=== PATIENT | male | born 1990 | race Caucasian/White ===

== ENCOUNTER 2020-12-16 08:57 | Emergency (ER) | payer OTHER, SELFPAY ==
[2020-12-16 08:58] VITALS: BP 147/105; PULSE 96; RESP 24; TEMP 36.6; O2SAT 99; BMI 32.1
--- NOTE | 2020-12-16 09:13 | EKG12_ITS ---
Test Reason : CP Blood Pressure : / mmHG Vent. Rate : 097 BPM Atrial Rate : 097 BPM P-R Int : 142 ms QRS Dur : 086 ms QT Int : 330 ms P-R-T Axes : 066 083 059 degrees QTc Int : 419 ms Normal sinus rhythm Normal ECG Confirmed by LUX MARTINEZ, DAVIS ([id number]), news videotape editor MAGDIEL MARTINEZ ([id number]) on 12/20/2020 10:09:11 AM Referred By: CHRISTOPHER Confirmed By:DAVIS WASSERMAN MD
--- NOTE | 2020-12-16 09:14 | ED.VIS.CHEST ---
HPI History of Present Illness Chief Complaint: Palpitations Detail of Chief Complaint: Patient presents with chest discomfort and tachycardia that started last ev Informant: patient Onset/Context/Timing Onset: Today Activity at onset: sudden Location: Left Chest Current Severity: Gone Worsened By: Breathing Associated Symptoms: Positive for Dyspnea, Lightheadedness and Palpitations Narrative Patient states that he woke up in the middle of the night 2 times with racing heart. Patient did not actually take his pulse to see how fast his heart was racing. Patient states that in the morning he woke up and took his medications and smoked a cigarette when he developed sharp stabbing pains in his left chest and also felt like his heart was racing. Patient states that he went to work and during his first break he smoked another cigarette and developed more pain in his left chest and felt like he was going to pass out. Patient states he felt lightheaded and sweaty and short of breath. Patient states that currently feels jittery and numb and tingly. He does have history of anxiety but is not on anxiety medication. Patient does not feel like he has been under more stress than usual. Patient denies recent travel or surgery. He has no other significant medical history. Prior Similar Symptoms: No Recent Illness/Hospitalization: No CVD Risk Factors: Negative for Hypertension, Diabetes and Hypercholesterolemia PE Risk Factors: Negative for Recent Travel/Surgery and Recent Immobilization TAD Risk Factors: Negative for Marfan's Syndrome, Hypertension and Family History PFSH PFSH Home Medications lorazepam [Ativan] 1 mg PO TID PRN #10 tab 12/16/20 [Rx Last Taken Unknown] Allergy/AdvReac Type Severity Reaction Status Date / Time Penicillins Allergy Rash Verified 12/16/20 09:01 Social History Smoking Status: Current every day smoker ROS ROS ED Review of Systems ROS Unobtainable: other Constitutional Constitutional ED: Reports lethargy; Denies chills, fever(s), sweats or weight loss Eyes Eyes: Denies blurry vision, change in vision or diplopia ENT ENT ED: Denies rhinorrhea or sore throat Cardiovascular Cardiovascular: Reports chest pain and racing heartbeat; Denies orthopnea Respiratory/Chest Respiratory/Chest: Reports dyspnea and dyspnea on exertion; Denies cough, orthopnea or sputum Gastrointestinal Gastrointestinal: Denies abdominal pain, diarrhea, nausea or vomiting Genitourinary Genitourinary ED: Denies dysuria, hematuria or urinary frequency Musculoskeletal Musculoskeletal: Denies arthralgias, back pain, myalgias or neck pain Integumentary Denies abscess, Abrasions or rash Neurologic Neurologic: Denies headache(s) or weakness Psychiatric Psychiatric: Denies anxiety, depression or suicidal thoughts Endocrine Endocrinology: Denies polydipsia, polyphagia or polyuria Hematologic/Lymphatic Hematologic/Lymphatic: Denies easy bleeding, easy bruising or lymphadenopathy Allergic/Immunologic Allergic/Immunologic ED: Denies mouth swelling, tongue swelling or urticaria EXAM Physical Exam Const Vital Signs: 12/16/20 08:58 12/16/20 09:35 12/16/20 09:36 Temperature 97.8 F Temperature Source Temporal Pulse Rate 96 Respiratory Rate 24 H Respiratory Effort Short of Breath Blood Pressure 147/105 H Blood Pressure Mean 119 Pulse Ox 99 99 Oxygen Delivery Method Room Air Room Air Positive well nourished and well developed General Appearance ED: well developed and NAD HEENT Reports TM's clear and moist mucous membranes normocephalic and atraumatic; Negative for trauma or tenderness Tympanic Membrane ED: Yes TM's clear Eyes PERRL and EOMs intact bilaterally General Eye ED: Negative for pale conjunctiva or scleral icterus Neck no lymphadenopathy, supple and no JVD General: Negative for tenderness Chest Wall inspection of chest normal and palpation of chest normal Chest: Negative for tenderness Resp normal respiratory effort and clear to auscultation bilaterally Effort and Inspection: Negative for respiratory distress or pain with movement Auscultation: Negative for rhonchi, wheezes or diminished lung sounds Cardio regular rate, regular rhythm, S1 normal heart sound, S2 normal heart sound and no murmurs Peripheral Pulses: pulses 2+ throughout GI normal to inspection, nondistended, normoactive bowel sounds, soft to palpation, non-tender, non-distended and no masses Back/Spine no CVA tenderness and no thoracic nor lumbar tenderness Extremity normal to inspection General Extremety ED: Negative for edema General Extremity: Negative for edema Neuro oriented x3, CN's II-XII intact bilaterally, no sensory deficits noted and gait normal Sensorium / Orientation: awake, alert, oriented to person, oriented to place and oriented to time Motor Exam: strength 5/5 throughout and strength abnormal Psych mental status grossly normal Skin no rashes or lesions noted and no wounds Heart Score History: Slightly/Non-Suspicious ECG: Normal Age: </= 45 years Risk Factors: No Risk Factors Troponin: </= Normal Limit Score: 0 MDM MDM MDM Narrative Medical decision making narrative: Patient has normal coronary artery risk factors. Patient has been monitored in the department and has had not had any significant tachycardia or abnormal rhythms. Patient not having any chest pain or other symptoms at this time. I suspect there may be a component of anxiety. Lab Data Labs: Laboratory Results - last 24 hr 12/16/20 12/16/20 12/16/20 09:35 09:35 09:35 WBC 6.1 RBC 4.93 Hgb 16.0 Hct 45.5 MCV 92.3 MCH 32.5 H MCHC 35.2 RDW Std Deviation 38.2 RDW Coeff of Neha 11.3 L Plt Count 207 MPV 10.6 Immature Gran % (Auto) 0.700 Neut % (Auto) 55.6 Lymph % (Auto) 27.0 Millard % (Auto) 12.6 H Eos % (Auto) 3.4 Baso % (Auto) 0.7 Absolute Neuts (auto) 3.4 Absolute Lymphs (auto) 1.65 Nucleated RBC % 0 D-Dimer Quant (PE/DVT) <= 0.27 Sodium 138 Potassium 4.1 Chloride 110 H Carbon Dioxide 22.0 Anion Gap 6 BUN 15 Creatinine 0.78 Estim Creat Clear Calc 183.53 Est GFR (MDRD) Af Amer 150 Est GFR (MDRD) Non-Af 124 BUN/Creatinine Ratio 19.3 Glucose 89 Calcium 8.9 Troponin I < 0.015 Radiography Chest X-Ray - ED: 1 View, Read by ED Physician, Read by Radiologist and Normal Diagnostic Testing: Radiology Impression Chest X-Ray 12/16/20 09:47 IMPRESSION: Normal x-ray examination of the chest. Electronically Signed: Rk Wilkins MD at 10:15 EDT , Service support , EKG Initial EKG: Interpretation: Sinus Rhythm and No Acute Injury Pattern Discharge Plan Triage Chief Complaint: Palpitations ED Provider: Xochitl Snyder Dx/Rx/DC Orders Instructions: ED Chest Pain, Uncertain Cause, ED Palpitations Prescriptions: New lorazepam [Ativan] 1 mg tablet 1 mg PO TID PRN (Reason: anxiety) Qty: 10 RF: 0 Primary Care Provider: Care Physician,No Primary Referrals: Silvino Villavicencio MD [STAFF PHYSICIAN] - 3-5 Days Care Physician,No Primary [Primary Care Provider] - Disposition Disposition: Home, self care
[2020-12-16 09:35] VITALS: O2SAT 99
[2020-12-16 09:41] LABS: Absolute Lymphocyte Count 1.65 X10^3/uL (0.83-4.51); Absolute Neutrophil Count 3.4 X10^3/uL (2.0-7.7); Basophil# 0.04 X10^3/uL; Basophil% 0.7 % (0-1); Eosinophil# 0.21 X10^3/uL; Eosinophils% 3.4 % (0-5); Hematocrit 45.5 % (40-54); Lymphocyte # 1.65 X10^3/ul (0.83-4.51); Mean Corp Hgb Conc 35.2 g/dL (32-36); Mean Corpuscular Hgb 32.5 pg (27.0-32.0); Mean Corpuscular Volume 92.3 fL (80-94); Mean Platelet Vol. 10.6 fl (6.2-12.0); Monocyte# 0.77 X10^3/uL; Monocyte% 12.6 % (0-10); NRBC Flagged by Analyzer 0 % (0-5); Neutrophil # 3.39 X10^3/uL (2.7-7.7); Neutrophil % 55.6 % (47-70); Platelet Count 207 K/mm3 (150-450); RBC Distribution Width CV 11.3 % (11.6-14.6); RBC Distribution Width SD 38.2 fl (35.1-43.9); Red Blood Count 4.93 M/mm3 (4.6-6.2); White Blood Count 6.1 K/mm3 (4.4-11.0)
[2020-12-16] MEDS: Aspirin 81 MG TAB.CHEW 324 MG PO (09:46)
[2020-12-16] MEDS: 0.9% Normal Saline 1,000 ML 150 ML IV (09:46)
--- NOTE | 2020-12-16 09:47 | RAD_ITS ---
STUDY: X-RAY CHEST REASON FOR EXAM: Male, 30 years old. Chest pain TECHNIQUE: Single AP portable view of the chest. COMPARISON: None. FINDINGS: EKG electrodes are seen. The lungs are clear and expanded. There is no demonstrated pleural abnormality. Normal size heart. Normal mediastinum and vanessa. Normal visualized pulmonary arteries. Normal visualized aortic arch and descending thoracic aorta. Normal visualized thoracic spine. Normal visualized ribs, clavicles, and shoulders. There is no demonstrated abnormality of the visualized soft tissue structures of the upper abdomen. RAD/Chest 1 View (Portable) IMPRESSION: Normal x-ray examination of the chest. Electronically Signed: Rk Wilkins MD at 10:15 EDT , Service support ,
[2020-12-16 09:57] LABS: D-Dimer Quantitative (DVT/PE) <= 0.27 FEU/ug/m (0.27-0.49)
[2020-12-16 09:58] LABS: Anion Gap 6 (5-15); BUN 15 mg/dL (7-18); BUN/Creat Ratio 19.3 RATIO (10-20); Calcium,Total 8.9 mg/dL (8.5-10.1); Chloride 110 mmol/L (98-107); Creatinine, Serum 0.78 mg/dL (0.70-1.30); EST Glomerular Filtration Rate 124 mL/min (>60); Est Glom Filt Rate - Afr Amer 150 mL/min (>60); Estimated Creatinine Clearance 183.53 ml/min; Glucose 89 mg/dL (74-106); Potassium 4.1 mmol/L (3.5-5.1); Sodium Level 138 mmol/L (136-145)
== END 2020-12-16 11:46 | disposition home or self-care (01) ==
PROVIDERS: Emergency Provider Emergency Medicine
DX: R00.2 Palpitations (principal); R07.89 Other chest pain; R00.0 Tachycardia, unspecified; R42 Dizziness and giddiness; R06.02 Shortness of breath; R06.00 Dyspnea, unspecified; F17.210 Nicotine dependence, cigarettes, uncomplicated; Z79.899 Other long term (current) drug therapy
CPT/HCPCS: 71045; 80048; 84484; 85025; 85379; 93005; 96360; 96361; 99285; J7030

== ENCOUNTER → 2021-06-24 16:52 | Outpatient (CLI) | payer OTHER, SELFPAY ==
[2021-06-24 16:55] LABS: Bacteria 0 SEEN /hpf (None Seen); Mucous, Urine 0 SEEN /hpf (<or=2+); Red Blood Cells-Urine 0 SEEN /hpf (0-5); White Blood Cells 0 SEEN /hpf (0-5)
--- NOTE | 2021-06-24 17:06 | RAD_ITS ---
STUDY: X-RAY CHEST REASON FOR EXAM: Male, 31 years old. SHORTNESS OF BREATH TECHNIQUE: 2 PA and 2 lateral views of the chest. COMPARISON: 12/16/2020 FINDINGS: The lungs are clear and expanded. There is no demonstrated pleural abnormality. Normal size heart. Normal mediastinum and vanessa. Normal visualized pulmonary arteries. Normal visualized aortic arch and descending thoracic aorta. Normal visualized thoracic spine. Normal visualized ribs, clavicles, and shoulders. There is no demonstrated abnormality of the visualized soft tissue structures of the upper abdomen. RAD/Chest PA and Lateral IMPRESSION: Normal x-ray examination of the chest. Electronically Signed: Franklin Liang MD at 17:25 EDT , Service support ,
[2021-06-24 17:40] LABS: Absolute Lymphocyte Count 1.88 X10^3/uL (0.83-4.51); Absolute Neutrophil Count 3.9 X10^3/uL (2.0-7.7); Basophil# 0.04 X10^3/uL; Basophil% 0.6 % (0-1); Eosinophil# 0.32 X10^3/uL; Eosinophils% 4.5 % (0-5); Hematocrit 44.7 % (40-54); Hemoglobin 15.2 g/dL (13.0-16.5); Lymphocyte # 1.88 X10^3/ul (0.83-4.51); Lymphocyte % 26.4 % (19-41); Mean Corpuscular Volume 94.1 fL (80-94); Mean Platelet Vol. 10.8 fl (6.2-12.0); Monocyte# 0.92 X10^3/uL; Monocyte% 12.9 % (0-10); NRBC Flagged by Analyzer 0 % (0-5); Neutrophil # 3.93 X10^3/uL (2.7-7.7); Neutrophil % 55.2 % (47-70); Platelet Count 217 K/mm3 (150-450); RBC Distribution Width CV 11.5 % (11.6-14.6); RBC Distribution Width SD 39.8 fl (35.1-43.9); Red Blood Count 4.75 M/mm3 (4.6-6.2); White Blood Count 7.1 K/mm3 (4.4-11.0)
[2021-06-24 17:50] LABS: Color, Urine Yellow (Yellow); Glucose, Dipstick Normal (Normal); Ketone-Dipstick Negative (Negative); Leukocyte Esterase-Dipstick Negative /ul (Negative); Nitrite-Dipstick Negative (Negative); Occult Blood-Urine Negative /ul (Negative); Protein-Dipstick Negative (Negative); Urine Bilirubin Dipstick Negative (Negative); Urine Clarity Clear (Clear); Urine Urobilinogen Normal (Normal)
[2021-06-24 18:40] LABS: Thyroid Stim Hormone (TSH) 0.62 uIU/mL (0.358-3.74)
[2021-06-24 18:57] LABS: Squamous Epithelial Cells - UA 0-5 SEEN /hpf (0-5)
== END ==
PROVIDERS: PCP Family Medicine; Referring Provider Family Medicine; Visit Provider Family Medicine
DX: R06.02 Shortness of breath (principal); F41.9 Anxiety disorder, unspecified; F17.200 Nicotine dependence, unspecified, uncomplicated
CPT/HCPCS: 36415; 71046; 81001; 84443; 85025

== ENCOUNTER → 2022-09-21 | Outpatient (CLI) | payer OTHER, SELFPAY ==
--- NOTE | 2022-09-21 14:59 | VDLE_ITS ---
Reason For Study: Swelling RIGHT LEFT CFV is compressible, spontaneous, phasic, GSV is normal. competent and demonstrates normal CFV is compressible, spontaneous, phasic, augmentation. competent, and demonstrates normal Procedure augmentation. This is a venous duplex using B-mode, color FV is compressible, spontaneous, phasic, flow and spectral Doppler. competent and demonstrates normal Exam performed in department. augmentation. A preliminary report was called and/or faxed POP V is compressible, spontaneous, phasic, to Yvette GARRETT. Office will call patient. competent and demonstrates normal augmentation. LT PerV is compressible. Acute deep veint thrombosis is noted in the left T/P Trunk distal, PTV, and SoleusV. VL/Venous Duplex US, Unilateral Interpretation Summary Acute deep venous thrombosis left tibioperoneal trunk, posterior tibial and vito eus veins. Patent and compressible left great saphenous vein Normal flow patterns right common femoral vein Ordering Physician: Raheem Nguyen Referring Physician: Raheem Nguyen Performed By: Maggie Jama RVT
== END | disposition home or self-care (01) ==
LOC: CVS 14:58
PROVIDERS: PCP Family Medicine; Referring Provider Family Medicine; Visit Provider Family Medicine
DX: M79.89 Other specified soft tissue disorders (principal)
CPT/HCPCS: 93971

== ENCOUNTER → 2022-09-21 | Outpatient (CLI) | payer OTHER, SELFPAY ==
[2022-09-21 17:50] LABS: Absolute Lymphocyte Count 1.85 X10^3/uL (0.83-4.51); Absolute Neutrophil Count 4.3 X10^3/uL (2.0-7.7); Basophil# 0.04 X10^3/uL; Basophil% 0.5 % (0-1); Eosinophil# 0.19 X10^3/uL; Eosinophils% 2.6 % (0-5); Lymphocyte # 1.85 X10^3/ul (0.83-4.51); Lymphocyte % 25.2 % (19-41); Mean Corp Hgb Conc 34.1 g/dL (32-36); Mean Corpuscular Hgb 32.9 pg (27.0-32.0); Mean Corpuscular Volume 96.5 fL (80-94); Mean Platelet Vol. 10.7 fl (6.2-12.0); Monocyte# 0.95 X10^3/uL; Monocyte% 12.9 % (0-10); NRBC Flagged by Analyzer 0 % (0-5); Neutrophil # 4.29 X10^3/uL (2.7-7.7); Neutrophil % 58.4 % (47-70); Platelet Count 211 K/mm3 (150-450); RBC Distribution Width CV 11.8 % (11.6-14.6); RBC Distribution Width SD 41.5 fl (35.1-43.9); Red Blood Count 4.56 M/mm3 (4.6-6.2); White Blood Count 7.4 K/mm3 (4.4-11.0)
[2022-09-21 18:21] LABS: ALB/GLOB Ratio 0.9 RATIO (0.9-2.4); AST(SGOT) 18 U/L (15-37); Alanine Aminotransfer ALT/SGPT 39 U/L (16-61); Albumin, Serum 3.9 g/dL (3.2-5.0); Alkaline Phosphatase 80 U/L (45-117); Anion Gap 9 (5-15); BUN 12 mg/dL (7-18); Calcium,Total 9.2 mg/dL (8.5-10.1); Chloride 105 mmol/L (98-107); EST Glomerular Filtration Rate 119 mL/min (>60); Est Glom Filt Rate - Afr Amer 144 mL/min (>60); Globulin 4.2 g/dL (2.2-4.2); Glucose 71 mg/dL (74-106); Potassium 3.6 mmol/L (3.5-5.1); Protein, Total 8.1 g/dL (6.4-8.2); Sodium Level 140 mmol/L (136-145)
== END | disposition home or self-care (01) ==
LOC: MFPLAB 14:30
PROVIDERS: PCP Family Medicine; Referring Provider Family Medicine; Visit Provider Family Medicine
DX: K21.9 Gastro-esophageal reflux disease without esophagitis (principal)
CPT/HCPCS: 36415; 80053; 85025

== ENCOUNTER → 2022-09-28 | Outpatient (CLI) | payer OTHER, SELFPAY | END | disposition home or self-care (01) | LOC: MTLAB 17:03 | PROVIDERS: PCP Family Medicine; Referring Provider Family Medicine; Visit Provider Family Medicine | DX: I82.409 Acute embolism and thrombosis of unspecified deep veins of unspecified lower extremity (principal) | CPT/HCPCS: 36415; 81240; 81241; 83090; 85300; 85303; 85307; 85420; 85613; 85705; 85732 ==

== ENCOUNTER → 2022-11-13 | Outpatient (CLI) | payer OTHER, SELFPAY ==
--- NOTE | 2022-11-13 12:49 | VDLE_ITS ---
Reason For Study: Pain RIGHT LEFT CFV is compressible, spontaneous, phasic, GSV is normal. competent and demonstrates normal CFV is compressible, spontaneous, phasic, augmentation. competent, and demonstrates normal Procedure augmentation. This is a venous duplex using B-mode, color FV is compressible, spontaneous, phasic, flow and spectral Doppler. competent and demonstrates normal Exam performed in department. augmentation. A preliminary report was called and/or faxed POP V is compressible, spontaneous, phasic, to Christine OPTOMECHANICAL ENGINEER. competent and demonstrates normal augmentation. Distal T/P Trunk is compressible. PTV and SoleusV are noncompressible and nondilated. Compared to 09/21/22. VL/Venous Duplex US, Unilateral Interpretation Summary Acute deep vein thrombosis is noted in the left posterior tibial vein, soleus v ein. Some degree of thrombus resolution since prior imaging Ordering Physician: Marely Cheng Referring Physician: Raheem Nguyen Performed By: Maggie Jama RVT
== END | disposition home or self-care (01) ==
LOC: CVS 12:48
PROVIDERS: PCP Family Medicine; Visit Provider Physician Assistant
DX: I82.409 Acute embolism and thrombosis of unspecified deep veins of unspecified lower extremity (principal)
CPT/HCPCS: 93971

== ENCOUNTER 2022-12-14 06:56 | Day surgery (SDC) | payer OTHER, SELFPAY ==
[2022-12-11 16:00] LABS: Hematocrit 46.9 % (40-54); Hemoglobin 15.9 g/dL (13.0-16.5); Mean Corp Hgb Conc 33.9 g/dL (32-36); Mean Corpuscular Hgb 31.8 pg (27.0-32.0); Mean Corpuscular Volume 93.8 fL (80-94); Mean Platelet Vol. 10.6 fl (6.2-12.0); Platelet Count 222 K/mm3 (150-450); RBC Distribution Width CV 11.7 % (11.6-14.6); RBC Distribution Width SD 40.3 fl (35.1-43.9); White Blood Count 7.6 K/mm3 (4.4-11.0)
[2022-12-11 16:30] LABS: Anion Gap 6 (5-15); BUN 20 mg/dL (7-18); BUN/Creat Ratio 23.3 RATIO (10-20); Calcium,Total 9.1 mg/dL (8.5-10.1); Chloride 104 mmol/L (98-107); Creatinine, Serum 0.86 mg/dL (0.70-1.30); EST Glomerular Filtration Rate 110 mL/min (>60); Est Glom Filt Rate - Afr Amer 133 mL/min (>60); Glucose 93 mg/dL (74-106); Potassium 3.9 mmol/L (3.5-5.1); Sodium Level 135 mmol/L (136-145)
[2022-12-13 08:09] VITALS: BMI 30.3
--- NOTE | 2022-12-14 10:05 | PCM.OPRPT ---
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 He has no significant family history of any thrombotic events and no personal history of prior VTE. He presents now for venogram to assess the central venous system for possible compression as a etiology for his unprovoked DVT. Description of procedure: Upon obtaining form consent and verification correct patient procedure site patient taken to the [facility] where he was positioned prepped and draped in usual sterile fashion. Timeout was then performed and conscious sedation administered with Versed and fentanyl. Skin overlying the left common femoral vein was anesthetized 1% lidocaine and the vessel accessed in retrograde fashion under ultrasound guidance with a micropuncture needle and wire. This then exchanged out for micropuncture sheath through which hand-injection ilio caval venogram was performed which revealed satisfactory positioning with no extravasation or dissection. Also revealed a very wide in the left common iliac vein suspicious for compression. Through the micropuncture sheath Bentson wire was advanced and the micropuncture sheath exchanged for a 9 Armenian sheath. Through the 9 Armenian sheath an intravascular ultrasound probe was advanced into the vena cava and recorded pullback of the IVC, left common iliac vein, left external iliac vein was performed. This revealed approximately 63% compression of the superior aspect of the left common iliac vein as well as the inferior aspect of the IVC. Next skin over the right common femoral vein was anesthetized with 1% lidocaine and the vessel was accessed under ultrasound guidance in a retrograde fashion with micropuncture needle and wire. This was then exchanged out for micropuncture sheath through which hand-injection ilio caval venogram was performed which revealed satisfactory positioning with no extravasation or dissection and normal-appearing iliac vein. Through this a J-wire was advanced and the micropuncture sheath exchanged out for a 9 Armenian sheath. Through the 9 Armenian sheath intravascular ultrasound probe was advanced in the inferior vena cava and recorded pullback of the IVC as well as the right common and external iliac veins was performed. This revealed no abnormality or compression of the right iliac vein system, but further confirmed that there was compression of the inferior vena cava at its confluence. Patient was then heparinized and allowed us her for 3 minutes with heparin redosing based on ACT results. Intravascular ultrasound imaging was then obtained to determine reference vessel diameter and length required. Given the location of the compression of the IVC confluence as well as the superior aspect of the left common iliac vein bilateral iliac vein stenting extending into the vena cava was required. A Medtronic Abre venous stent, 18 x 150 was selected and advanced via the left femoral access sheath in the position extending superior to the maximum extent of the compression. Next a second Medtronic Abre venous stent, 18 x 50 was selected advanced via the right femoral access sheath and positioned aligning with the left femoral access stent. A 2 stents were then deployed simultaneously down into the common iliac veins. Given the extent required to reach our reference vessel on the left a second Abre stent 18 x 80 was then advanced via the left femoral access sheath and deployed with satisfactory overlap of the initial stent. The stents were then postdilated with a 16 x 40 [employer] XXL angioplasty balloon to nominal throughout the entirety of the length of the stented segment. Intravascular sound was then advanced via both the right and left femoral access sheath and recorded pullback performed. The proximal aspect of the left venous stent was approximately 5 mm cephalad to the right sided stent and appeared to be compromising the lumen of the vena cava superior to the right-sided stent. [place] that a second stent in the right was necessary to give better alignment so a Medtronic Abre 18 x 60 was advanced in position via the right femoral access sheath and then deployed the superior aspect of the stents were then dilated with angioplasty balloon and then deflated and withdrawn. Repeat intravascular ultrasound revealed satisfactory stent alignment, appropriate stent expansion and good wall apposition throughout with no residual compression. The left common iliac dilated segment had already decompressed down to around the stent. Completion hand-injection venogram was performed which revealed brisk contrast across the stented segment with no extravasation or dissection. Sheaths and wires were withdrawn and manual pressure held for 5 minutes after which satisfactory hemostasis was noted. Patient was taken recovery room with dissipated discharge home. Grafts/Implants Used: Medtronic Abre: Left 18 x 150, 18 x 80; Right 18 x 150, 18 x 60
[2022-12-14 13:38] LABS: ACT Activated Clotting Time 233 sec (74-137)
== END 2022-12-14 12:00 | disposition home or self-care (01) ==
PROVIDERS: PCP Family Medicine; Referring Provider Surgery Trauma Surgery; Visit Provider Surgery Trauma Surgery
DX: I87.1 Compression of vein (principal); I82.402 Acute embolism and thrombosis of unspecified deep veins of left lower extremity; K21.9 Gastro-esophageal reflux disease without esophagitis; F32.A Depression, unspecified; F41.9 Anxiety disorder, unspecified; Z79.01 Long term (current) use of anticoagulants; Z79.899 Other long term (current) drug therapy
CPT/HCPCS: 36010; 36415; 37238; 37252; 37253; 75825; 76937; 80048; 85027; 85347; 99152; 99153; C1725; C1753; C1769; C1876; J7040; Q9967; C1887

== ENCOUNTER → 2023-01-19 | Outpatient (CLI) | payer OTHER, SELFPAY ==
--- NOTE | 2023-01-19 08:33 | AAVD_ITS ---
Reason For Study: S/P Bilateral vein stents Inferior Vena Cava Proximal inferior vena cava measures 1.54 x 1.47 cm. in the cross-sectional axis. Mid inferior vena cava measures 1.58 x 1.60 cm. in the cross-sectional axis. Distal inferior vena cava measures 1.61 x 1.61 cm. in the cross-sectional axis. Proximal inferior vena cava measures 1.39 cm. in the longitudinal axis. Mid inferior vena cava measures 1.56 cm. in the longitudinal axis. Distal inferior vena cava measures 1.50 cm. in the longitudinal axis. Left Common Iliac Vein Left common iliac vein measures 1.29 x 1.40 cm. in the cross-sectional axis. Left common iliac vein measures 1.32 cm. in the longitudinal axis. The left common iliac vein has spontaneous, phasic flow throughout. Right Common Iliac Vein Right common iliac vein measures 1.27 x 1.40 cm. in the cross-sectional axis. Right common iliac vein measures 1.39 cm. in the longitudinal axis. The right common iliac vein has spontaneous, phasic flow throughout. Procedure Aorta IVC Iliac vasculature or bypass grafts [id number]. The exam was diagnostic. Exam performed in department. VL/Abd Aortic/IVC Duplex scan Interpretation Summary IVC and bilateral iliac vein stents patent with normal flow pattern. Ordering Physician: Silvino Mar Referring Physician: Raheem Nguyen Performed By: Ej Kim, RVT
== END | disposition home or self-care (01) ==
LOC: CVS 08:32
PROVIDERS: PCP Family Medicine; Referring Provider Surgery Trauma Surgery; Visit Provider Surgery Trauma Surgery
DX: I87.1 Compression of vein (principal)
CPT/HCPCS: 93978

== ENCOUNTER → 2023-06-15 | Outpatient (CLI) | payer OTHER, SELFPAY ==
--- NOTE | 2023-06-15 08:34 | AAVD_ITS ---
Reason For Study: HX BLE CIV Stents Inferior Vena Cava Proximal inferior vena cava measures 1.49 x 1.52 cm. in the cross-sectional axis. Proximal inferior vena cava measures 1.50 cm. in the longitudinal axis. Mid inferior vena cava measures 1.63 x 1.65 cm. in the cross-sectional axis. Mid inferior vena cava measures 1.50 cm. in the longitudinal axis. Distal inferior vena cava measures 1.57 x 1.54 cm. in the cross-sectional axis. Distal inferior vena cava measures 1.69 cm. in the longitudinal axis. The inferior vena cava has spontaneous, phasic flow throughout. Stent noted in distal IVC. Left Common Iliac Vein Left common iliac vein measures 1.41 x 1.60 cm. in the cross-sectional axis. Left common iliac vein measures 1.49 cm. in the longitudinal axis. The left common iliac vein has spontaneous, phasic flow throughout. Stent noted. Right Common Iliac Vein Right common iliac vein measures 1.39 x 1.23 cm. in the cross-sectional axis. Right common iliac vein measures 1.50 cm. in the longitudinal axis. The right common iliac vein has spontaneous, phasic flow throughout. Stent noted. Procedure Aorta IVC Iliac vasculature or bypass grafts [id number]. The exam was diagnostic. Exam performed in department. VL/Abd Aortic/IVC Duplex scan Interpretation Summary Patent inferior vena cava and bilateral iliac vein stents with normal venous fl ow pattern Ordering Physician: Marely Whyte Referring Physician: Raheem Nguyen Performed By: Ej Kim, RVT
== END | disposition home or self-care (01) ==
LOC: CVS 08:34
PROVIDERS: PCP Family Medicine; Referring Provider Physician Assistant; Visit Provider Physician Assistant
DX: I87.1 Compression of vein (principal); I82.409 Acute embolism and thrombosis of unspecified deep veins of unspecified lower extremity; Z48.812 Encounter for surgical aftercare following surgery on the circulatory system
CPT/HCPCS: 93978

== ENCOUNTER → 2023-06-21 | Outpatient (CLI) | payer OTHER, SELFPAY ==
--- NOTE | 2023-06-21 11:09 | RAD_ITS ---
STUDY: X-RAY CHEST REASON FOR EXAM: Male, 33 years old. Acute bronchitis TECHNIQUE: PA and lateral views of the chest. COMPARISON: Comparison is made with prior study dated June 24, 2021. FINDINGS: Hyperinflation. Scattered calcified granulomas. There is no demonstrated pleural abnormality. Normal size heart. Normal mediastinum and vanessa. Normal visualized pulmonary arteries. Normal visualized aortic arch and descending thoracic aorta. Normal visualized thoracic spine. Normal visualized ribs, clavicles, and shoulders. There is no demonstrated abnormality of the visualized soft tissue structures of the upper abdomen. RAD/Chest PA and Lateral IMPRESSION: Hyperinflation. Scattered calcified granulomas. Electronically Signed: Rk Wilkins MD at 14:23 EDT ,
== END | disposition home or self-care (01) ==
LOC: MTRAD 11:08
PROVIDERS: PCP Family Medicine; Referring Provider Family Medicine; Visit Provider Family Medicine
DX: J20.9 Acute bronchitis, unspecified (principal)
CPT/HCPCS: 71046

== ENCOUNTER → 2023-07-05 | Outpatient (CLI) | payer OTHER, SELFPAY ==
[2023-07-05 17:44] LABS: Absolute Lymphocyte Count 1.76 X10^3/uL (0.83-4.51); Absolute Neutrophil Count 3.9 X10^3/uL (2.0-7.7); Basophil# 0.05 X10^3/uL; Basophil% 0.7 % (0-1); Eosinophil# 0.25 X10^3/uL; Eosinophils% 3.7 % (0-5); Hemoglobin 14.3 g/dL (13.0-16.5); Lymphocyte # 1.76 X10^3/ul (0.83-4.51); Lymphocyte % 26.2 % (19-41); Mean Corp Hgb Conc 33.3 g/dL (32-36); Mean Corpuscular Hgb 31.8 pg (27.0-32.0); Mean Corpuscular Volume 95.6 fL (80-94); Mean Platelet Vol. 10.8 fl (6.2-12.0); Monocyte# 0.71 X10^3/uL; Monocyte% 10.5 % (0-10); NRBC Flagged by Analyzer 0 % (0-5); Neutrophil # 3.93 X10^3/uL (2.7-7.7); Neutrophil % 58.5 % (47-70); Platelet Count 236 K/mm3 (150-450); RBC Distribution Width CV 11.8 % (11.6-14.6); RBC Distribution Width SD 41.2 fl (35.1-43.9); White Blood Count 6.7 K/mm3 (4.4-11.0)
[2023-07-05 18:27] LABS: AST(SGOT) 16 U/L (15-37); Alanine Aminotransfer ALT/SGPT 40 U/L (16-61); Albumin, Serum 3.7 g/dL (3.2-5.0); Alkaline Phosphatase 70 U/L (45-117); Anion Gap 7 (5-15); BUN 12 mg/dL (7-18); BUN/Creat Ratio 15.8 RATIO (10-20); Calcium,Total 8.5 mg/dL (8.5-10.1); Chloride 106 mmol/L (98-107); Creatinine, Serum 0.76 mg/dL (0.70-1.30); EST Glomerular Filtration Rate 126 mL/min (>60); Est Glom Filt Rate - Afr Amer 152 mL/min (>60); Globulin 3.6 g/dL (2.2-4.2); Glucose 90 mg/dL (74-106); Potassium 3.8 mmol/L (3.5-5.1); Protein, Total 7.3 g/dL (6.4-8.2); Sodium Level 139 mmol/L (136-145)
== END | disposition home or self-care (01) ==
LOC: MTLAB 15:28
PROVIDERS: PCP Family Medicine; Referring Provider Family Medicine; Visit Provider Family Medicine
DX: K21.9 Gastro-esophageal reflux disease without esophagitis (principal); F17.200 Nicotine dependence, unspecified, uncomplicated
CPT/HCPCS: 36415; 80053; 85025; 87086

== ENCOUNTER → 2023-09-04 | Outpatient (CLI) | payer OTHER, SELFPAY ==
--- NOTE | 2023-09-04 09:55 | RAD_ITS ---
STUDY: X-RAY CHEST REASON FOR EXAM: Male, 33 years old. Acute bronchitis TECHNIQUE: PA and lateral views of the chest. COMPARISON: Comparison is made with prior study dated June 21, 2023. FINDINGS: Hyperinflation. Scattered calcified granulomas. No acute abnormality is seen. There is no demonstrated pleural abnormality. Normal size heart. Normal mediastinum and vanessa. Normal visualized pulmonary arteries. Normal visualized aortic arch and descending thoracic aorta. Normal visualized thoracic spine. Normal visualized ribs, clavicles, and shoulders. There is no demonstrated abnormality of the visualized soft tissue structures of the upper abdomen. RAD/Chest PA and Lateral IMPRESSION: Hyperinflation. No acute abnormality is seen. Electronically Signed: Rk Wilkins MD at 13:14 EST ,
--- OUTSIDE RECORDS SUMMARY | 2023-09-04 10:21 | XMS RPT_ITS | CCD ---
Author Name Unknown Address [address] [place] [id number] Organization [facility] Results Test Name Value Interpretation Reference Range Facil ity Progress note 08-01-2021 Note Date & Type Note Facility 08-01-2021 Note HNO ID: [id number] Author: Iza Zuniga APRN.[employer] Service: ? Author Type: Nurse Practitioner Type: Progress Notes Filed: 08/03/2021 1:32 PM Note Text: This note was created using [employer]. Subjective Dharmesh Regan is a 31 year old male. 31 year old male with PMH tobacco usage presents requesting want to make sure I don't have khadar Acute onset this past Sunday States started with feeling crappy +fatigue +sinus pressure +headache +loss of appetite +cough +congestion Denies N/V/D. Denies fever or chills. COVID vaccinated. The history is provided by the patient. No geospatial extractor analysis was used. URI He complains of cough. There is no chest tightness, difficulty breathing, frequent throat clearing, hemoptysis, hoarse voice, shortness of breath, sputum production or wheezing. This is a new problem. The current episode started in the past 7 days. The problem occurs constantly. The problem has been unchanged. The cough is non-productive. Associated symptoms include headaches, malaise/fatigue, myalgias, nasal congestion, rhinorrhea and a sore throat. Pertinent negatives include no appetite change, chest pain, dyspnea on exertion, ear congestion, ear pain, fever, heartburn, orthopnea, PND, postnasal drip, sneezing, sweats, trouble swallowing or weight loss. His symptoms are aggravated by nothing. His symptoms are alleviated by nothing. There are no known risk factors for lung disease. There is no history of asthma, bronchiectasis, bronchitis, COPD, emphysema or pneumonia. PAST MEDICAL HISTORY Diagnosis Date - Anxiety - Back pain - Hyperlipidemia dx at 18yo - Skull fracture (HCC) rock penetrated, had to have cerebral clot removed - Tobacco use disorder PAST SURGICAL HISTORY Procedure Laterality Date - PAST SURGICAL HISTORY OF removal intercranial clot s/p accident ALLERGIES Amoxicillin, Ceclor [Cefaclor], and Penicillins MEDICATIONS sertraline (ZOLOFT) 100 mg tablet Take 100 mg by mouth once daily. omeprazole 20 mg capsule Take 1 capsule by mouth daily before breakfast. 1/2 hr before meal. Ibuprofen 200 mg cap Take 4 capsules by mouth as needed. FAMILY HISTORY Problem Relation Age of Onset - Diabetes Paternal Grandmother - Hypertension Father - Cancer Maternal Grandfather ?colon - Emphysema Father - Emphysema Paternal Grandfather Social History Tobacco Use - Smoking status: Current Every Day Smoker Packs/day: 0.80 Years: 6.00 Pack years: 4.80 Types: Cigarettes - Smokeless tobacco: Never Used - Tobacco comment: started smoking 14yo Substance Use Topics - Alcohol use: Yes Alcohol/week: 90.0 standard drinks Types: 36 Cans of Beer (12oz) per week Comment: beer weekends 12pk - Drug use: No Review of Systems Constitutional: Positive for fatigue and malaise/fatigue. Negative for appetite change, fever and weight loss. HENT: Positive for rhinorrhea and sore throat. Negative for dental problem, drooling, ear discharge, ear pain, hoarse voice, postnasal drip, sneezing and trouble swallowing. Eyes: Negative for photophobia, pain, discharge, redness, itching and visual disturbance. Respiratory: Positive for cough. Negative for apnea, hemoptysis, sputum production, choking, chest tightness, shortness of breath and wheezing. Cardiovascular: Negative for chest pain, dyspnea on exertion, palpitations, leg swelling and PND. Gastrointestinal: Negative for abdominal pain, diarrhea, heartburn, nausea and vomiting. Musculoskeletal: Positive for myalgias. Negative for arthralgias, back pain and gait problem. Skin: Negative for color change, pallor, rash and wound. Allergic/Immunologic: Negative for environmental allergies, food allergies and immunocompromised state. Neurological: Positive for headaches. Negative for dizziness, seizures, facial asymmetry, light-headedness and numbness. Hematological: Negative for adenopathy. Does not bruise/bleed easily. Psychiatric/Behavioral: Negative for agitation and behavioral problems. Objective BP 132/72 Pulse 88 Temp 36.8 ?C (98.2 ?F) Resp 16 Wt 123.8 kg (273 lb) SpO2 96% BMI 31.27 kg/m? Physical Exam Vitals and nursing note reviewed. Constitutional: General: He is not in acute distress. Appearance: Normal appearance. He is not ill-appearing, toxic-appearing or diaphoretic. HENT: Head: Normocephalic and atraumatic. Right Ear: External ear normal. Left Ear: External ear normal. Nose: Nose normal. No congestion or rhinorrhea. Mouth/Throat: Mouth: Mucous membranes are moist. Pharynx: Oropharynx is clear. No oropharyngeal exudate or posterior oropharyngeal erythema. Eyes: General: Right eye: No discharge. Left eye: No discharge. Extraocular Movements: Extraocular movements intact. Conjunctiva/sclera: Conjunctivae normal. Pupils: Pupils are equal, round, and reactive to light. Cardiovascular: Rate and Rhythm: Normal rate and regular (more content not included)... [facility] Summary Purpose Family History No Family History Records Found Advance Directives No Advanced Directives Records Found Additional Source Comments (unrecognized sect ion and content) No Status Records Found INFORMATION SOURCE (unrecogn ized section and content) FOR RECORDS PERTAINING TO PATIENTS WHO ARE OR HAVE BEEN ENROLLED IN A CHEMICAL DEPENDENCY/SUBSTANCEABUSE PROGRAM, SOME INFORMATION MAY BE OMITTED. This clinical summary was aggregated from multiple sources. Caution should be exercised in using it in the provision of clinical care. This summary normalizes information from multiple sources, and as a consequence, information in this document may materially change the coding, format and clinical context of patient data. In addition, data may be omitted in some cases. CLINICAL DECISIONS SHOULD BE BASED ON THE PRIMARY CLINICAL RECORDS. [employer] [facility]. provides no warranty or guarantee of the accuracy or completeness of information in this document.
== END | disposition home or self-care (01) ==
LOC: MTRAD 09:52
PROVIDERS: PCP Family Medicine; Referring Provider Family Medicine; Visit Provider Family Medicine
DX: J20.9 Acute bronchitis, unspecified (principal)
CPT/HCPCS: 71046

== ENCOUNTER → 2023-12-07 | Outpatient (CLI) | payer OTHER, SELFPAY ==
--- NOTE | 2023-12-07 08:33 | AAVD_ITS ---
Reason For Study: S/P bilateral iliac vein stents Inferior Vena Cava Proximal inferior vena cava measures 1.07 x 1.85 cm. in the cross-sectional axis. Proximal inferior vena cava measures 1.24 cm. in the longitudinal axis. Mid inferior vena cava measures 1.38 x 1.48 cm. in the cross-sectional axis. Mid inferior vena cava measures 1.43 cm. in the longitudinal axis. Distal IVC, Rt Stent 1.69 x 1.51 x 1.64 cm, Lt Stent 1.01 x 1.09 x 1.13 cm. The inferior vena cava has spontaneous, phasic flow throughout. Left Common Iliac Vein Left common iliac vein measures 1.03 x 1.07 cm. in the cross-sectional axis. Left common iliac vein measures 1.08 cm. in the longitudinal axis. The left common iliac vein has spontaneous, phasic flow throughout. Right Common Iliac Vein Right common iliac vein measures 1.50 x 1.59 cm. in the cross-sectional axis. Right common iliac vein measures 1.68 cm. in the longitudinal axis. The right common iliac vein has spontaneous, phasic flow throughout. Procedure Aorta IVC Iliac vasculature or bypass grafts 29119. Exam performed in department. VL/Abd Aortic/IVC Duplex scan Interpretation Summary Patent inferior vena cava and bilateral iliac vein stents with normal venous fl ow pattern. Ordering Physician: Marely Whyte Referring Physician: Raheem Nguyen Performed By: Maggie Jama RVT
== END | disposition home or self-care (01) ==
LOC: CVS 08:30
PROVIDERS: PCP Family Medicine; Referring Provider Physician Assistant; Visit Provider Physician Assistant
DX: Z48.812 Encounter for surgical aftercare following surgery on the circulatory system (principal); I82.409 Acute embolism and thrombosis of unspecified deep veins of unspecified lower extremity; I87.1 Compression of vein
CPT/HCPCS: 93978

== ENCOUNTER 2024-01-29 14:14 | Emergency (ER) | payer OTHER, SELFPAY ==
[2024-01-29 14:15] VITALS: BP 153/95; PULSE 100; RESP 20; TEMP 36.1; O2SAT 100; BMI 32.1
--- NOTE | 2024-01-29 15:38 | EKG12_ITS ---
Test Reason : Blood Pressure : / mmHG Vent. Rate : 072 BPM Atrial Rate : 072 BPM P-R Int : 158 ms QRS Dur : 098 ms QT Int : 402 ms P-R-T Axes : 059 078 055 degrees QTc Int : 440 ms Normal sinus rhythm Normal ECG Confirmed by Good De Jesus ([id number]), photography editor MAGDIEL MARTINEZ ([id number]) on 01/30/2024 9:05:44 AM Referred By: Confirmed By:Good De Jesus
--- NOTE | 2024-01-29 15:38 | EDS_ITS ---
HPI History of Present Illness Chief Complaint: Shortness of Breath Narrative Narrative: 33-year-old male presenting with dyspnea. He states has had issues with this for the last few weeks. He states it is worse with exertion. Patient denies any chest pain. He states that he does smoke about a pack to 1.5 packs of cigarettes a day. He states he has an albuterol inhaler but has not used it because he does not think it works. Denies fevers, chills, body aches. Patient states he woke up in the middle the night last night and was unable to catch his breath. He states this concerned him. Patient states he does not know if he has sleep apnea but does note that he snores. Patient also states he has a history of anxiety and depression. 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 Mar. Patient previously on blood thinners but states he stopped them about a month ago. [facility] Medical History Left leg swelling Deep vein thrombosis (DVT) SOB (shortness of breath) on exertion Depression Anxiety GERD (gastroesophageal reflux disease) Home Medications ?Medication ?Instructions ?Recorded ?Last Taken ?Type omeprazole 20 mg capsule,delayed 20 mg PO DAILY 10/04/22 12/14/22 History release sertraline 50 mg tablet (Zoloft) 50 mg PO DAILY 10/04/22 Unknown History aspirin 81 mg tablet,delayed 81 mg PO DAILY #90 tabs 12/14/22 Unknown Rx release (Adult Aspirin Regimen) Allergy/AdvReac Type Severity Reaction Status Date / Time Penicillins Allergy Severe Rash Verified 01/11/23 15:50 Surgical History Hx of brain surgery (~01/2002) Social History Smoking Status: Current every day smoker tobacco type: cigarettes ROS ROS ED Constitutional Constitutional ED: Denies chills, fever(s) or sweats Eyes Eyes: Denies blurry vision or change in vision ENT ENT ED: Denies ear pain or sore throat Cardiovascular Cardiovascular: Denies chest pain, palpitations or racing heartbeat Respiratory/Chest Respiratory/Chest: Reports cough, dyspnea and dyspnea on exertion; Denies sputum Gastrointestinal Gastrointestinal: Denies abdominal pain, constipation, diarrhea, nausea or vomiting Genitourinary Genitourinary ED: Denies dysuria, hematuria or urinary frequency Musculoskeletal Musculoskeletal: Denies arthralgias, myalgias or neck pain Integumentary Denies abscess, Abrasions or rash Neurologic Neurologic: Denies headache(s), paresthesias or weakness Psychiatric Psychiatric: Denies anxiety, depression, suicidal ideation or suicidal thoughts Endocrine Endocrinology: Denies polydipsia or polyuria EXAM Physical Exam Const Vital Signs: 01/29/24 14:14 01/29/24 14:15 01/29/24 15:41 Temperature 97 F L Temperature Source Oral Pulse Rate 100 Respiratory Rate 20 H Respiratory Effort Normal Non-Labored Respiratory Depth Normal Respiratory Pattern Normal Blood Pressure 153/95 H Blood Pressure Mean 114 Pulse Ox 100 Oxygen Delivery Method Room Air Room Air Room Air 01/29/24 16:14 01/29/24 18:00 Temperature Temperature Source Pulse Rate 76 76 Respiratory Rate 18 15 Respiratory Effort Respiratory Depth Respiratory Pattern Blood Pressure 139/77 H 151/96 H Blood Pressure Mean 97 114 Pulse Ox 97 94 Oxygen Delivery Method Room Air Room Air Positive well nourished General Appearance ED: NAD HEENT Reports moist mucous membranes atraumatic and trauma Eyes PERRL and EOMs intact bilaterally Resp normal respiratory effort and clear to auscultation bilaterally Auscultation: Negative for rales, rhonchi or wheezes Cardio regular rate and regular rhythm Extremity normal to inspection Neuro oriented x3 and CN's II-XII intact bilaterally Sensorium / Orientation: alert Psych mental status grossly normal Skin no wounds and skin turgor normal MDM MDM MDM Narrative Medical decision making narrative: Patient presenting with dyspnea. Differential includes viral illness, pneumonia, COPD, dehydration, anemia, electrolyte normalities. Given patient's history of DVT I will obtain a D-dimer. CBC will be obtained to assess white blood cell count, hemoglobin, platelets. BMP to assess renal function, electrolytes, glucose. High-sensitivity troponin and EKG to assess for ischemia/dysrhythmia. Chest x-ray to rule out pneumonia. CBC shows normal white blood cell count 17.9. Hemoglobin 15.8. Platelets are normal at 228. Renal function and electrolytes within normal limits. High-sensitivity troponin is 3. EKG interpreted by myself shows 72 bpm without sign of ischemic change or ectopy. Chest x-ray interpreted by myself shows no acute process. Radiology interprets this and agrees. I do not believe the patient needs a delta troponin since he had the symptoms since yesterday. D-dimer was negative today at 0.42 therefore I have low suspicion for PE. Patient counseled on findings. I recommended at length to him that he discontinue smoking. Impression: 1. Dyspnea 2. Tobacco Lab Data Labs: Laboratory Results - last 24 hr 01/29/24 15:15 WBC 7.1 RBC 4.94 Hgb 15.8 Hct 46.6 MCV 94.3 H MCH 32.0 MCHC 33.9 RDW Std Deviation 39.4 RDW Coeff of Neha 11.5 L Plt Count 228 MPV 10.5 Immature Gran % (Auto) 0.400 Neut % (Auto) 57.0 Lymph % (Auto) 25.8 [place] % (Auto) 12.7 H Eos % (Auto) 3.5 Baso % (Auto) 0.6 Absolute Neuts (auto) 4.1 Absolute Lymphs (auto) 1.83 Nucleated RBC % 0 Diff Path Review May foll D-Dimer Quant (PE/DVT) 0.42 Sodium 139 Potassium 3.9 Chloride 108 H Carbon Dioxide 28.0 Anion Gap 3 L BUN 18 Creatinine 0.96 Estim Creat Clear Calc 167.08 Est GFR (MDRD) Af Amer 115 Est GFR (MDRD) Non-Af 95 BUN/Creatinine Ratio 18.7 Glucose 80 Calcium 9.3 Troponin I High Sens < 3 L Radiography Diagnostic Testing: Clinical Impression(s) from Imaging Studies Chest X-Ray 01/29/24 15:40 IMPRESSION: Small airways disease Electronically Signed: Marko Marquez MD at 16:22 EDT Reading Location ID and State: [facility] / [place] Tel , Service support , Discharge Plan Triage Chief Complaint: Shortness of Breath ED Provider: You Bowden Dx/Rx/DC Orders Instructions: ED Dyspnea Prescriptions: No Action omeprazole 20 mg capsule,delayed release(DR/EC) 20 mg PO DAILY sertraline [Zoloft] 50 mg tablet 50 mg PO DAILY aspirin [Adult Aspirin Regimen] 81 mg tablet,delayed release (DR/EC) 81 mg PO DAILY Qty: 90 0RF Primary Care Provider: Raheem Nguyen Referrals: Raheem Nguyen MD [Primary Care Provider] - Print Language: [place] Disposition Disposition: Home, Self Care
--- NOTE | 2024-01-29 15:40 | RAD_ITS ---
STUDY: X-RAY CHEST REASON FOR EXAM: Male, 33 years old. chest pain TECHNIQUE: Single frontal view of the chest. COMPARISON: September 04, 2023 FINDINGS: Lungs are hyperaerated. The lungs are clear and expanded. There is no demonstrated pleural abnormality. Normal size heart. Normal mediastinum and vanessa. Normal visualized pulmonary arteries. Normal visualized aortic arch and descending thoracic aorta. Normal visualized thoracic spine. Normal visualized ribs, clavicles, and shoulders. There is no demonstrated abnormality of the visualized soft tissue structures of the upper abdomen. RAD/Chest 1 View (Portable) IMPRESSION: Small airways disease Electronically Signed: Marko Marquez MD at 16:22 EDT ,
[2024-01-29 15:49] LABS: Absolute Lymphocyte Count 1.83 X10^3/uL (0.83-4.51); Absolute Neutrophil Count 4.1 X10^3/uL (2.0-7.7); Basophil# 0.04 X10^3/uL; Basophil% 0.6 % (0-1); Eosinophil# 0.25 X10^3/uL; Eosinophils% 3.5 % (0-5); Hematocrit 46.6 % (40-54); Hemoglobin 15.8 g/dL (13.0-16.5); Lymphocyte # 1.83 X10^3/ul (0.83-4.51); Lymphocyte % 25.8 % (19-41); Mean Corp Hgb Conc 33.9 g/dL (32-36); Mean Corpuscular Volume 94.3 fL (80-94); Mean Platelet Vol. 10.5 fl (6.2-12.0); Monocyte% 12.7 % (0-10); NRBC Flagged by Analyzer 0 % (0-5); Neutrophil # 4.05 X10^3/uL (2.7-7.7); Platelet Count 228 K/mm3 (150-450); RBC Distribution Width CV 11.5 % (11.6-14.6); RBC Distribution Width SD 39.4 fl (35.1-43.9); Red Blood Count 4.94 M/mm3 (4.6-6.2); White Blood Count 7.1 K/mm3 (4.4-11.0)
[2024-01-29 15:51] LABS: Pathologist Review May foll
[2024-01-29 16:13] LABS: D-Dimer Quantitative (DVT/PE) 0.42 FEU/ug/m (0.27-0.49)
[2024-01-29 16:14] VITALS: BP 139/77; PULSE 76; RESP 18; O2SAT 97
[2024-01-29 16:45] LABS: Anion Gap 3 (5-15); BUN 18 mg/dL (7-18); BUN/Creat Ratio 18.7 RATIO (10-20); Calcium,Total 9.3 mg/dL (8.5-10.1); Chloride 108 mmol/L (98-107); Creatinine, Serum 0.96 mg/dL (0.70-1.30); EST Glomerular Filtration Rate 95 mL/min (>60); Est Glom Filt Rate - Afr Amer 115 mL/min (>60); Estimated Creatinine Clearance 167.08 ml/min; Glucose 80 mg/dL (74-106); Potassium 3.9 mmol/L (3.5-5.1); Sodium Level 139 mmol/L (136-145); Troponin-I HS < 3 pg/mL (3.0-78.0)
[2024-01-29 18:00] VITALS: BP 151/96; PULSE 76; RESP 15; O2SAT 94
[2024-01-29 19:41] VITALS: BP 157/90; PULSE 74; RESP 20; TEMP -7.7; TEMP 18; O2SAT 95
== END 2024-01-29 19:46 | disposition home or self-care (01) ==
PROVIDERS: Emergency Provider Student in an Organized Health Care Education/Training Program; PCP Family Medicine; Visit Provider Student in an Organized Health Care Education/Training Program
DX: R06.00 Dyspnea, unspecified (principal); R05.9 Cough, unspecified; K21.9 Gastro-esophageal reflux disease without esophagitis; F32.A Depression, unspecified; F41.9 Anxiety disorder, unspecified; F17.210 Nicotine dependence, cigarettes, uncomplicated; Z79.82 Long term (current) use of aspirin; Z79.899 Other long term (current) drug therapy; Z86.718 Personal history of other venous thrombosis and embolism
CPT/HCPCS: 71045; 80048; 84484; 85025; 85379; 93005; 99284; A4216

== ENCOUNTER 2024-04-13 21:21 | Emergency (ER) | payer OTHER, SELFPAY ==
[2024-04-13 21:21] VITALS: BP 144/95; PULSE 108; RESP 24; TEMP 36; O2SAT 100
--- NOTE | 2024-04-13 21:38 | CT_ITS ---
INDICATION: LLQ abdominal pain EXAMINATION: CT Abdomen And Pelvis W/ Contrast Injection TECHNIQUE: Helically acquired images were obtained of the abdomen and pelvis after IV contrast. A radiation dose optimization technique was used for this scan. IV Contrast dosage and agent: IV 100mL [id number] Oral contrast: None. COMPARISON: None. FINDINGS: Visualized lung bases: Unremarkable Liver: Unremarkable Gallbladder: Unremarkable Spleen: Unremarkable Pancreas: Unremarkable Adrenal Glands: Unremarkable Kidneys: Unremarkable Vasculature: Biiliac stent grafts. There is significant fat stranding and inflammatory changes surrounding the left external iliac and femoral vein. GI Tract: Unremarkable Lymphadenopathy: Left external iliac lymphadenopathy. Peritoneum: No ascites. Bladder: Unremarkable Reproductive organs: Unremarkable Bones/Soft tissues: No suspicious osseous or soft tissue lesions CT/Abdomen/Pelvis W IV Cont ONLY IMPRESSION: Inflammatory changes surrounding the left femoral vein and external iliac vein with local lymphadenopathy. Differential includes vasculitis, thrombosis or hemorrhage. Recommend clinical correlation. Electronically Signed: Yunior Blackmon MD at 23:20 EDT ,
[2024-04-13] MEDS: 0.9% Normal Saline (1000mL) 1,000 ML 999 ML IV (22:07)
[2024-04-13] MEDS: Ondansetron 4 MG/2 ML Vial IV (22:07)
[2024-04-13] MEDS: Morphine 4 MG/ML Syringe IV ×2 (22:08→23:55)
[2024-04-13 22:18] LABS: Absolute Lymphocyte Count 2.07 X10^3/uL (0.83-4.51); Basophil# 0.06 X10^3/uL; Basophil% 0.5 % (0-1); Eosinophils% 1.7 % (0-5); Hematocrit 40.8 % (40-54); Hemoglobin 14.5 g/dL (13.0-16.5); Lymphocyte # 2.07 X10^3/ul (0.83-4.51); Lymphocyte % 17.2 % (19-41); Mean Corp Hgb Conc 35.5 g/dL (32-36); Mean Corpuscular Hgb 32.3 pg (27.0-32.0); Mean Corpuscular Volume 90.9 fL (80-94); Monocyte# 1.66 X10^3/uL; Monocyte% 13.8 % (0-10); NRBC Flagged by Analyzer 0 % (0-5); Neutrophil # 7.97 X10^3/uL (2.7-7.7); Neutrophil % 66.2 % (47-70); POSITIVE DIFFERENTIAL YES; Platelet Count 287 K/mm3 (150-450); RBC Distribution Width CV 11.1 % (11.6-14.6); Red Blood Count 4.49 M/mm3 (4.6-6.2)
[2024-04-13 22:31] LABS: Differential Indicated SCAN CRITERIA MET
[2024-04-13 22:36] LABS: AST(SGOT) 18 U/L (15-37); Alanine Aminotransfer ALT/SGPT 50 U/L (16-61); Albumin, Serum 3.3 g/dL (3.2-5.0); Alkaline Phosphatase 91 U/L (45-117); Anion Gap 11 (5-15); BUN 16 mg/dL (7-18); Bilirubin, Direct 0.18 mg/dL (0.00-0.30); Calcium,Total 9.5 mg/dL (8.5-10.1); Chloride 104 mmol/L (98-107); EST Glomerular Filtration Rate 91 mL/min (>60); Est Glom Filt Rate - Afr Amer 110 mL/min (>60); Glucose 106 mg/dL (74-106); Lipase 24 U/L (13-75); Potassium 3.4 mmol/L (3.5-5.1); Protein, Total 8.3 g/dL (6.4-8.2); Sodium Level 136 mmol/L (136-145)
[2024-04-13 22:56] LABS: Anisocytosis RARE; Macrocytosis RARE; Platelet Estimate ADEQUATE (ADEQ); Red Cell Morphology N CHROM NORMAL (NORM C&C)
--- NOTE | 2024-04-13 23:00 | EX.ED.DYSGE1 ---
HPI History of Present Illness Chief Complaint: Abd Pain Informant: patient and family Narrative Narrative: 33-year-old male presenting to the emergency room with the chief complaint of lower abdominal pain. Patient states that about a week ago began to experience some lower mid and left abdominal pain. States he has not had a good bowel movement and has been taking stool softeners with no relief. He states his urine continues to be darker than normal. He denies any fevers. The patient notes that he has stents in the veins to his legs placed earlier this year by Dr. Mar. He states that his legs and his hands are tingling but he is also been breathing very fast due to the pain. He denies any history of diverticulitis or colitis. No ureterolithiasis history. No dysuria or frequency. PFSH PFSH Medical History Left leg swelling Deep vein thrombosis (DVT) SOB (shortness of breath) on exertion Depression Anxiety GERD (gastroesophageal reflux disease) Home Medications ?Medication ?Instructions ?Recorded ?Last Taken ?Type aspirin 81 mg tablet,delayed 81 mg PO DAILY #90 tabs 12/14/22 Unknown Rx release (Adult Aspirin Regimen) albuterol sulfate 90 mcg/actuation 2 puff inhalation Q4H PRN 04/13/24 Unknown History aerosol inhaler oxycodone 10 mg tablet 10 mg PO Q8H PRN pain 3 days #9 04/13/24 Unknown Rx tabs pantoprazole 40 mg tablet,delayed 40 mg PO DAILY 04/13/24 Unknown History release paroxetine HCl 20 mg tablet 20 mg PO DAILY 04/13/24 Unknown History apixaban 5 mg (74 tabs) tablets in 5 mg PO BID #74 tabs 04/14/24 Unknown Rx a dose pack (Eliquis DVT-PE Treat 30D Start) Allergy/AdvReac Type Severity Reaction Status Date / Time Penicillins Allergy Severe Rash Verified 04/13/24 21:23 Surgical History Hx of brain surgery (~01/2002) Social History Smoking Status: Current every day smoker tobacco type: cigarettes ROS ROS ED Constitutional Constitutional ED: Denies chills, fever(s) or weight loss Eyes Eyes: Denies change in vision or diplopia ENT ENT ED: Denies ear pain, rhinorrhea or sore throat Cardiovascular Cardiovascular: Denies chest pain, orthopnea, palpitations or racing heartbeat Respiratory/Chest Respiratory/Chest: Denies cough, dyspnea or orthopnea Gastrointestinal Gastrointestinal: Reports abdominal pain and constipation; Denies diarrhea, nausea or vomiting Genitourinary Genitourinary ED: Denies dysuria, hematuria or urinary frequency Musculoskeletal Musculoskeletal: Denies arthralgias or myalgias Integumentary Denies abscess or rash Neurologic Neurologic: Reports paresthesias; Denies headache(s) or weakness Psychiatric Psychiatric: Denies anxiety, depression, suicidal ideation or suicidal thoughts Endocrine Endocrinology: Denies polydipsia, polyphagia or polyuria Allergic/Immunologic Allergic/Immunologic ED: Denies mouth swelling, tongue swelling or urticaria EXAM Physical Exam Const Vital Signs: 04/13/24 21:21 04/13/24 23:21 04/14/24 00:02 Temperature 96.8 F L 99.1 F Temperature Source Temporal Pulse Rate 108 H 80 82 Respiratory Rate 24 H 20 H 18 Blood Pressure 144/95 H 160/97 H 160/97 H Blood Pressure Mean 111 118 118 Pulse Ox 100 98 98 Oxygen Delivery Method Room Air Room Air Positive well nourished and well developed General Appearance ED: well developed HEENT Reports normocephalic, head/scalp atraumatic and moist mucous membranes Eyes PERRL and EOMs intact bilaterally Neck no lymphadenopathy, supple and no JVD Resp clear to auscultation bilaterally Resp Narrative: Hyperventilating Cardio regular rate, regular rhythm and no murmurs GI GI Narrative: Tender to palpation in the suprapubic left lower quadrant area. Normal active bowel sounds. The abdomen is soft. Inspection: Negative for abdominal distention Auscultation: normoactive bowel sounds Palpation: soft; Negative for rebound tenderness present Back/Spine no CVA tenderness and normal ROM Extremity Extremity Narrative: The lower extremities are warm. There is no mottling. The right leg is less swollen than the left. Neuro oriented x3 and CN's II-XII intact bilaterally Sensorium / Orientation: alert Motor Exam: strength 5/5 throughout Psych Psych Narrative: Patient appears to have a degree of hyperventilation. Mood & Affect: anxious; Negative for depressed or tearful Skin no rashes or lesions noted and no wounds MDM MDM MDM Narrative Medical decision making narrative: Differential diagnosis includes but not limited to diverticulitis ureterolithiasis UTI vascular abnormality volvulus bowel obstruction The patient received pain and nausea medication as well as IV fluids. White count nonspecifically elevated at 12. Hemoglobin 14.5 and platelet count of 287. Lipase 24 alkaline phosphatase 91 normal bilirubin transaminases. Creatinine of 1. CT of the abdomen pelvis was obtained. I do not see any obvious ureterolithiasis or colonic issues like colitis diverticulitis or obstruction. There is noted to be some inflammatory changes around the left femoral vein and external iliac vein. I placed a phone call to the patient's vascular surgeon Dr. Mar to discuss these findings. 1 possible concern would be thrombosis. Dr. Knapp's recommendation is for pain medication and Eliquis. His office will contact him tomorrow to obtain duplexes this is not available to us at this time. I am not seeing evidence of cerulea Kang's or albicans, compartment syndrome or significant arterial compromise. History & Record Review Discussion w/independent historian: Patient Lab Data Attestation: I reviewed the patient's lab results. Labs: Laboratory Results - last 24 hr 04/13/24 04/13/24 22:09 23:45 WBC 12.0 H RBC 4.49 L Hgb 14.5 Hct 40.8 MCV 90.9 MCH 32.3 H MCHC 35.5 RDW Std Deviation 37.0 RDW Coeff of Neha 11.1 L Plt Count 287 MPV 10.0 Immature Gran % (Auto) 0.600 Neut % (Auto) 66.2 Lymph % (Auto) 17.2 L [place] % (Auto) 13.8 H Eos % (Auto) 1.7 Baso % (Auto) 0.5 Absolute Neuts (auto) 8.0 H Absolute Lymphs (auto) 2.07 Nucleated RBC % 0 Differential Comment SEE COMMENT Diff Path Review May foll Platelet Estimate ADEQUATE RBC Morphology N CHROM Anisocytosis RARE Macrocytosis RARE Sodium 136 Potassium 3.4 L Chloride 104 Carbon Dioxide 21.0 Anion Gap 11 BUN 16 Creatinine 1.00 Est GFR (MDRD) Af Amer 110 Est GFR (MDRD) Non-Af 91 BUN/Creatinine Ratio 16.0 Glucose 106 Calcium 9.5 Total Bilirubin 0.70 Direct Bilirubin 0.18 AST 18 ALT 50 Alkaline Phosphatase 91 Total Protein 8.3 H Albumin 3.3 Globulin 5.0 H Lipase 24 Urine Color Yellow Urine Clarity Clear Urine pH 7.0 Ur Specific [place] 1.005 Urine Protein 30 H Urine Glucose (UA) Normal Urine Ketones 5 H Urine Occult Blood 10 H Urine Nitrite Negative Urine Bilirubin Negative Urine Urobilinogen 1 H Ur Leukocyte Esterase 25 H Urine RBC 0 SEEN Urine WBC 0 SEEN Ur Squamous Epith Cells 0 SEEN Urine Bacteria 0 SEEN Urine Mucus 0 SEEN Radiography Diagnostic Testing: Clinical Impression(s) from Imaging Studies Abdomen/Pelvis CT 04/13/24 21:38 IMPRESSION: Inflammatory changes surrounding the left femoral vein and external iliac vein with local lymphadenopathy. Differential includes vasculitis, thrombosis or hemorrhage. Recommend clinical correlation. Electronically Signed: Yunior Blackmon MD at 23:20 EDT , Discharge Plan Triage Chief Complaint: Abd Pain ED Provider: Michael Brown Dx/Rx/DC Orders Clinical Impression: Abdominal pain, PVD (peripheral vascular disease), Tobacco use disorder Instructions: DVT Tx Prescriptions: New oxycodone 10 mg tablet 10 mg PO Q8H PRN (Reason: pain) 3 Days Qty: 9 0RF Eliquis DVT-PE Treat 30D Start 5 mg (74 tabs) tablets,dose pack 5 mg PO BID Qty: 74 0RF No Action albuterol sulfate 90 mcg/actuation HFA aerosol inhaler 2 puff INHALATION Q4H PRN pantoprazole 40 mg tablet,delayed release (DR/EC) 40 mg PO DAILY paroxetine HCl 20 mg tablet 20 mg PO DAILY aspirin [Adult Aspirin Regimen] 81 mg tablet,delayed release (DR/EC) 81 mg PO DAILY Qty: 90 0RF Primary Care Provider: Raheem Nguyen Referrals: Silvino Mar MD [Med Staff - Active Staff] - As soon as possible Raheem Nguyen MD [Primary Care Provider] - Activity Restrictions/Additional Instructions: If you have the Eliquis at home, the first week is 10 mg twice a day then 5 mg twice a day after that. Dr. Mar's office will call you tomorrow to get a ultrasound to see if there is a blood clot. Print Language: Martiniquais Disposition Disposition: Home, Self Care
[2024-04-13 23:21] VITALS: BP 160/97; PULSE 80; RESP 20; O2SAT 98
[2024-04-13 23:38] VITALS: BMI 32.3
[2024-04-13 23:48] LABS: Bacteria 0 SEEN /hpf (None Seen); Mucous, Urine 0 SEEN /hpf (<or=2+); Red Blood Cells-Urine 0 SEEN /hpf (0-5); Squamous Epithelial Cells - UA 0 SEEN /hpf (0-5); White Blood Cells 0 SEEN /hpf (0-5)
[2024-04-13 23:49] LABS: Color, Urine Yellow (Yellow); Glucose, Dipstick Normal (Normal); Ketone-Dipstick 5 mg/dl (Negative); Leukocyte Esterase-Dipstick 25 /ul (Negative); Nitrite-Dipstick Negative (Negative); Occult Blood-Urine 10 /ul (Negative); Protein-Dipstick 30 mg/dl (Negative); Specific Gravity, Urine 1.005 (1.002-1.030); Urine Bilirubin Dipstick Negative (Negative); Urine Clarity Clear (Clear); Urine Urobilinogen 1 mg/dl (Normal)
[2024-04-13] MEDS: APIXABAN 5 MG TABLET 10 MG PO (23:55)
[2024-04-13] MEDS: oxyCODONE 5 MG Tablet 10 MG PO (23:55)
[2024-04-14 00:02] VITALS: BP 160/97; PULSE 82; RESP 18; TEMP 37.3; O2SAT 98
[2024-04-14 11:51] LABS: Pathologist Review Reviewed
== END 2024-04-14 00:24 | disposition home or self-care (01) ==
PROVIDERS: Emergency Provider Emergency Medicine; PCP Family Medicine; Visit Provider Emergency Medicine
DX: R10.32 Left lower quadrant pain (principal); I73.9 Peripheral vascular disease, unspecified; F17.210 Nicotine dependence, cigarettes, uncomplicated; Z79.82 Long term (current) use of aspirin; Z79.01 Long term (current) use of anticoagulants; Z79.899 Other long term (current) drug therapy; Z86.718 Personal history of other venous thrombosis and embolism; Z95.820 Peripheral vascular angioplasty status with implants and grafts
CPT/HCPCS: 74177; 80048; 80076; 81001; 83690; 85025; 96361; 96374; 96375; 96376; 99284; J7030; Q9967; A4216; J2405

== ENCOUNTER → 2024-04-16 | Outpatient (CLI) | payer OTHER, SELFPAY ==
--- NOTE | 2024-04-16 07:46 | VDLE_ITS ---
Reason For Study: Left leg pain RIGHT LEFT GSV is normal. Acute deep vein thrombosis is noted in the CFV is compressible, spontaneous, phasic, left EIV, CFV and FV. It is NONCOMPRESSIBLE competent and demonstrates normal and dilated. augmentation. POP V is compressible, spontaneous, phasic, FV is compressible, spontaneous, phasic, competent and demonstrates normal competent and demonstrates normal augmentation. augmentation. T/P Trunk is compressible. POP V is compressible, spontaneous, phasic, PTV is compressible. competent and demonstrates normal LT PerV is compressible. augmentation. T/P Trunk is compressible. PTV is compressible. RT PerV is compressible. Procedure This is a venous duplex using B-mode, color flow and spectral Doppler. Exam performed in department. A preliminary report was called and/or faxed to Christine GOLDMAN. VL/Venous Duplex US - Noah Extrem Interpretation Summary Acute deep vein thrombosis is noted in the left external iliac vein, common fem oral vein, femoral vein. Deep veins of the right lower extremity are patent and compressible segmentally . There is no evidence of right lower extremity deep vein thrombosis. The right [place] us vein appears patent and compressible segmentally. Ordering Physician: Silvino Mar Referring Physician: Raheem Nguyen Performed By: Maggie Jama RVT and Student
--- NOTE | 2024-04-16 07:46 | AAVD_ITS ---
Reason For Study: Prior iliac vein stent, Pain Inferior Vena Cava Proximal inferior vena cava measures 1.68 x 1.77 cm. in the cross-sectional axis. Proximal inferior vena cava measures 1.80 cm. in the longitudinal axis. Unable to visualize mid-distal IVC due to bowel gas. The inferior vena cava has spontaneous at proximal. Left Common Iliac Vein Left common iliac vein measures 1.74 x 1.77 cm. in the cross-sectional axis. Left common iliac vein measures 1.82 cm. in the longitudinal axis. No flow noted in the left CIV, Stent noted. Right Common Iliac Vein Right common iliac vein measures 1.40 x 1.44 cm. in the cross-sectional axis. Right common iliac vein measures 1.82 cm. in the longitudinal axis. The right common iliac vein has spontaneous, phasic flow throughout. Procedure Aorta IVC Iliac vasculature or bypass grafts 87296. Preliminary report given to Christinevera GOLDM[facility] [employer] examination, scanned patient partially sitting up, unable to tolerate laying flat. Exam performed in department. VL/Abd Aortic/IVC Duplex scan Interpretation Summary Left iliac vein stent occluded. Inferior vena cava and iliac vein stents patent with normal venous flow pattern . Ordering Physician: Silvino Mar Referring Physician: Raheem Nguyen Performed By: Maggie Jama RVT
== END | disposition home or self-care (01) ==
LOC: CVS 07:44
PROVIDERS: PCP Family Medicine; Referring Provider Surgery Trauma Surgery; Visit Provider Surgery Trauma Surgery
DX: M79.605 Pain in left leg (principal); Z95.820 Peripheral vascular angioplasty status with implants and grafts
CPT/HCPCS: 93970; 93978

== ENCOUNTER 2024-04-17 16:13 | Inpatient (IN) | payer OTHER, SELFPAY ==
[2024-04-17 02:40] VITALS: BP 144/77; PULSE 82; RESP 16; TEMP 36.8; O2SAT 100
[2024-04-17 14:00] VITALS: BP 138/101; PULSE 82; RESP 16; TEMP 36.2; O2SAT 95
[2024-04-17 14:02] VITALS: BMI 31.9
[2024-04-17] MEDS: 0.9% Saline Lock 10 ML Syringe IV ×2 (15:53→23:14)
--- NOTE | 2024-04-17 16:42 | HP.PCM_ITS ---
[facility] - General General Date of Admission: 04/17/24 HPI Narrative DHARMESH REGAN, is a 33 M who presents with intractable pain secondary to LLE DVT. He was seen in the ER on 04/13/24 for a 7 day history of worsening abdominal and LLE pain. At that time CT was obtained which suggested iliac vein thrombosis but ultrasound was not available. He was discharged on Eliquis starter dose and oxycodone. On 04/16/24 he had a LLE venous duplex revealing iliac and femoral vein thrombosis. He is s/p prior iliac vein stenting for prior unprovoked DVT and central venous compression. He had completed 1 year of DAPT as of December and since then has been on only ASA 81mg daily. His routine ultrasounds to this point had been satisfactory with patent stents. He reports that about 1 week prior to the start of these most recent symptoms he did have COVID and was very laid up and inactive secondary to that. He has not seen any improvement in his pain since initiating Eliquis. Due to this and the location of his thrombus, we had already scheduled outpatient venogram with thrombectomy on 04/23/24. Unfortunately, his pain has become unmanageable at home leading to his admission for pain control and heparin drip today. He took his last dose of Eliquis at 1200 today. He also complains of recent significant constipation, though he was finally able to have a bowel movement prior to coming in to the hospital today. He has a listed history of binge drinking, he admits to typically drinking about 8 beers a day, but reports his last alcoholic drink was >1 week ago. He also smokes about 1 ppd. Otherwise, he has no significant medical history other than listed above. [facility] Medical History Left leg swelling Deep vein thrombosis (DVT) SOB (shortness of breath) on exertion Depression Anxiety GERD (gastroesophageal reflux disease) Home Medications ?Medication ?Instructions ?Recorded ?Last Taken ?Type aspirin 81 mg tablet,delayed 81 mg PO DAILY #90 tabs 12/14/22 04/17/24 Rx release (Adult Aspirin Regimen) albuterol sulfate 90 mcg/actuation 2 puff inhalation Q4H PRN 04/13/24 04/16/24 History aerosol inhaler pantoprazole 40 mg tablet,delayed 40 mg PO DAILY 04/13/24 04/17/24 History release paroxetine HCl 20 mg tablet 20 mg PO DAILY 04/13/24 04/17/24 History apixaban 5 mg (74 tabs) tablets in 5 mg PO BID #74 tabs 04/14/24 04/17/24 Rx a dose pack (Eliquis DVT-PE Treat 30D Start) acetaminophen 500 mg tablet 1,000 mg PO Q8H PRN fever or pain 04/17/24 04/16/24 History (Acetaminophen Extra Strength) multivitamin (Daily Multi-Vitamin 1 tab PO DAILY 04/17/24 04/17/24 History tablet) naproxen 250 mg tablet 250 mg PO Q8H PRN pain 5 days #16 04/17/24 04/17/24 Rx tabs oxycodone 5 mg tablet 10 mg (2 x 5 mg) PO TID PRN pain 3 04/17/24 04/16/24 Rx days #18 tabs polyethylene glycol 3350 17 4 g PO DAILY #238 grams 04/17/24 04/16/24 Rx gram/dose oral powder (Miralax) Allergy/AdvReac Type Severity Reaction Status Date / Time cefaclor (From [facility]) Allergy Severe Swelling Verified 04/17/24 08:45 Penicillins Allergy Severe Rash Verified 04/17/24 08:45 amoxicillin AdvReac Severe Swelling Verified 04/17/24 08:45 Surgical History Hx of brain surgery (~01/2002) Social History Smoking Status: Current every day smoker tobacco type: cigarettes Vital Signs Vital Signs Vital Signs: 04/17/24 14:00 Temperature 97.2 F L Temperature Source Temporal Pulse Rate 82 Respiratory Rate 16 Blood Pressure 138/101 H Blood Pressure Mean 113 Blood Pressure Source Monitor Blood Pressure Position Semi-Fowlers Blood Pressure Location Right Forearm Oxygen Delivery Method Room Air Weight Weight: 283 lb 15.286 oz Body Mass Index (BMI) 31.9 Physical Exam Const alert and oriented x3 General Appearance: cooperative HEENT normocephalic and head/scalp atraumatic Eyes EOMs intact bilaterally Neck General: trachea midline Resp normal respiratory effort, normal air movement and clear to auscultation bilaterally Effort and Inspection: Negative for uses accessory muscles Cardio regular rate and regular rhythm Extremity Extremity Narrative: Significant LLE edema and erythema/warmth in the L thigh consistent with known DVT Skin General Skin Exam: no breakdown Lesions: no lesions Rashes: no rashes Wounds: Negative for wounds noted Neuro CN's II-XII intact bilaterally, no focal motor deficits and no sensory deficits noted Speech: speech normal Psych thought process normal, cooperative and affect normal Appearance: appropriate Assessment & Plan Assessment/Plan (1) Deep vein thrombosis (DVT): PLAN: Plan He is admitted for pain management and anticoagulation leading up to his planned venogram with thrombectomy in the scientific laboratory supervisor on 04/23/2024. Eliquis is held, last dose was 1200 today. Initiate weight-based heparin drip per protocol at 2300. Continue ASA 81mg daily. Tylenol scheduled. Toradol and oxycodone ordered PRN. Continue home protonix. Continue with scheduled bowel regimen with Miralax and Senna/Docusate as ordered. Charges/Coding Visit Charges Inpatient E&M: 27554 Init Hosp L2
[2024-04-17 17:28] VITALS: BP 138/101; PULSE 82; RESP 16; TEMP 36.2; O2SAT 95
[2024-04-17 20:35] VITALS: BP 162/87; PULSE 77; RESP 18; TEMP 36.9; O2SAT 100
[2024-04-17 21:17] LABS: Partial Thromboplast Time 37.4 Seconds (24.1-36.2)
[2024-04-17] MEDS: Senna/Docusate Sodium 1 Tablet 2 TABLET PO (23:02)
[2024-04-17] MEDS: oxyCODONE 5 MG Tablet PO (23:02)
[2024-04-17] MEDS: HEPARIN/D5w 25,000 UNITS 25,000 UNITS/250 ML IV.SOLN. 17 UNITS CONT INF (23:13)
[2024-04-18] MEDS: HYDROmorphone Inj 0.2 MG/ML SYRINGE IV ×2 (01:38→20:38)
[2024-04-18] MEDS: 0.9% Saline Lock 10 ML Syringe IV ×3 (01:38→11:40)
[2024-04-18 02:51] VITALS: BP 144/77; PULSE 82; RESP 16; TEMP 36.8; O2SAT 100
[2024-04-18] MEDS: Ketorolac 30 MG/ML Syringe IV ×3 (03:31→20:22)
[2024-04-18 03:41] VITALS: BMI 31.8
[2024-04-18 05:36] LABS: Absolute Lymphocyte Count 1.56 X10^3/uL (0.83-4.51); Absolute Neutrophil Count 5.3 X10^3/uL (2.0-7.7); Basophil# 0.04 X10^3/uL; Basophil% 0.5 % (0-1); Eosinophil# 0.29 X10^3/uL; Eosinophils% 3.4 % (0-5); Hemoglobin 11.5 g/dL (13.0-16.5); Lymphocyte # 1.56 X10^3/ul (0.83-4.51); Lymphocyte % 18.2 % (19-41); Mean Corp Hgb Conc 33.8 g/dL (32-36); Mean Corpuscular Hgb 31.3 pg (27.0-32.0); Mean Corpuscular Volume 92.6 fL (80-94); Mean Platelet Vol. 9.9 fl (6.2-12.0); Monocyte# 1.37 X10^3/uL; NRBC Flagged by Analyzer 0 % (0-5); Neutrophil # 5.26 X10^3/uL (2.7-7.7); Neutrophil % 61.3 % (47-70); Platelet Count 264 K/mm3 (150-450); RBC Distribution Width CV 11.3 % (11.6-14.6); RBC Distribution Width SD 38.5 fl (35.1-43.9); Red Blood Count 3.67 M/mm3 (4.6-6.2); White Blood Count 8.6 K/mm3 (4.4-11.0)
[2024-04-18 05:46] LABS: Partial Thromboplast Time 42.2 Seconds (24.1-36.2)
[2024-04-18 06:03] LABS: Anion Gap 7 (5-15); BUN 13 mg/dL (7-18); Calcium,Total 9.1 mg/dL (8.5-10.1); Chloride 105 mmol/L (98-107); Creatinine, Serum 0.68 mg/dL (0.70-1.30); EST Glomerular Filtration Rate 141 mL/min (>60); Est Glom Filt Rate - Afr Amer 171 mL/min (>60); Estimated Creatinine Clearance 234.85 ml/min; Glucose 116 mg/dL (74-106); Potassium 3.4 mmol/L (3.5-5.1); Sodium Level 136 mmol/L (136-145)
[2024-04-18] MEDS: Heparin Injection (Vial) 5,000 UNIT/ML VIAL IV ×3 (06:04→20:28)
[2024-04-18 08:50] VITALS: BP 132/69; PULSE 72; RESP 18; TEMP 36.8; O2SAT 99
[2024-04-18] MEDS: Polyethylene Glycol 3350 17 GM PACKET PO (09:08)
[2024-04-18] MEDS: Paroxetine 20 MG Tablet PO (09:08)
[2024-04-18] MEDS: Pantoprazole Sodium 40 MG Tablet PO (09:08)
[2024-04-18] MEDS: Multivitamins,Therapeutic Tablet 1 TABLET PO (09:08)
[2024-04-18] MEDS: Aspirin E.C. 81 MG Tablet PO (09:08)
[2024-04-18] MEDS: Senna/Docusate Sodium 1 Tablet 2 TABLET PO (09:08)
[2024-04-18] MEDS: Acetaminophen 500 MG Tablet 1000 MG PO (10:47)
[2024-04-18] MEDS: oxyCODONE 5 MG Tablet PO (10:47)
[2024-04-18 12:34] LABS: Partial Thromboplast Time 35.1 Seconds (24.1-36.2)
[2024-04-18] MEDS: HEPARIN/D5w 25,000 UNITS 25,000 UNITS/250 ML IV.SOLN. 20 UNITS CONT INF (13:36)
--- NOTE | 2024-04-18 14:22 | CASEMGMT ---
TAMI BLEDSOE Assessment Face to Face with patient for initial transition planning/care coordination assessment. TAMI BLEDSOE introduced self and role at [facility], pt voices understanding. Pt is A&Ox4 and is resting comfortably in bed and is calm. Care providers, pharmacy, and demographics verified. Admitting dx: DVT LACE Strata: 1 PCP: Raheem Nguyen Specialists: Zaid Navarro Pharmacy: [facility] Insurance: [employer] Prescription Benefit: Yes LNOK: Parents - Saad and Irene Living Arrangements: Pt lives with his parents in a ranch style home with a ramp to enter. Pt states that the ramp was built for his father ADLs/IADLs: States ind Transportation: Self, parents. Denies concerns DME: Forearm crutches, W/C, Recliner. Denies further needs at this time HHC/SNF: Denies Hx Plan: TBD. At this time, the plan (per vascular) is for the pt to stay here until Sunday (04/23) for a venogram. Originally, the pt was scheduled for this as an OP but the pt was experiencing too much pain to remain at home. Pt is currently being anticoagulated in preparation for the surgery next week. CM to follow for further needs. Rose Dawn RN, CM
[2024-04-18 14:50] VITALS: BP 143/80; PULSE 83; RESP 18; TEMP 36.6; O2SAT 100
--- NOTE | 2024-04-18 15:49 | CHAPLAIN ---
Type of Pastoral Visit _x__ Initial Visit ___ Follow-up Visit ___ On-call Visit ___ General Patient Visit ___ Spiritual Assessment ___ Family Conference ___ Bereavement ___ Rapid Response ___ Code Blue ___ Other (describe below) Pastoral Care Referral From _x__ Patient ___ Family ___ Nurse ___ Physician ___ Teamcenter Consultant ___ Plant Superintendent ___ Other (describe below) Sacrament/Intervention _x__ Active listening ___ Anointing ___ Pentecostalism ___ Bereavement ___ Communion _x__ Mary exploration ___ _x__ Life review _x__ Prayer ___ Reconciliation ___ Sacrament of Sick _x__ Supportive presence ___ Wedding ___ Other (describe below) Pastoral Comments patient is welcoming and goes into some details about his health, his developments over the last few days, the discouragement that he feels with waiting and the pain he has endured; pt speaks openly about some of his life choices and his thoughts on connecting more with his mary; pt expresses thankfulness for someone to talk with during this time; pt requests The Lord's Prayer to be recited together; pt requested a Bible to read which was given to him as well
[2024-04-18 19:26] LABS: Partial Thromboplast Time 40.7 Seconds (24.1-36.2)
[2024-04-18 21:00] VITALS: BP 162/94; PULSE 90; RESP 20; TEMP 36.6; O2SAT 97
[2024-04-19] MEDS: HYDROmorphone Inj 0.2 MG/ML SYRINGE IV ×4 (01:42→21:38)
[2024-04-19] MEDS: HEPARIN/D5w 25,000 UNITS 25,000 UNITS/250 ML IV.SOLN. 22 UNITS CONT INF (01:46)
[2024-04-19] MEDS: 0.9% Saline Lock 10 ML Syringe IV ×3 (01:47→19:36)
[2024-04-19 03:00] VITALS: BP 123/66; PULSE 72; RESP 18; TEMP 36.4; O2SAT 97
[2024-04-19 03:03] LABS: Partial Thromboplast Time 42.4 Seconds (24.1-36.2)
[2024-04-19] MEDS: Heparin Injection (Vial) 5,000 UNIT/ML VIAL IV ×3 (03:42→16:55)
[2024-04-19] MEDS: Ketorolac 30 MG/ML Syringe IV ×3 (03:42→19:35)
[2024-04-19 05:12] VITALS: BMI 31.8
[2024-04-19 07:43] VITALS: BP 128/53; PULSE 71; RESP 16; TEMP 36.8; O2SAT 97
[2024-04-19] MEDS: oxyCODONE 5 MG Tablet PO ×3 (07:45→18:13)
[2024-04-19] MEDS: Acetaminophen 500 MG Tablet 1000 MG PO ×2 (07:46→18:12)
--- NOTE | 2024-04-19 09:00 | PCM.PN.SRG ---
Subjective Subjective Leg feels about the same, improves with elevation. Back pain unchanged. Objective Data Objective Data A&O x 3, NAD RRR Resp non labored LLE 1+ edema +DP/PT pulse Vital Signs: Vital Signs Temp Pulse Resp BP Pulse Ox O2 Del Method 98.2 F 71 16 128/53 H 97 Room Air 04/19/24 07:43 04/19/24 07:43 04/19/24 07:43 04/19/24 07:43 04/19/24 07:43 04/19/24 07:50 Oxygen Delivery Method Room Air Weight: 282 lb 10.122 oz Body Mass Index (BMI) 31.8 Intake & Output: Intake and Output for Last 24 Hours 04/17/24 04/18/24 04/19/24 23:59 23:59 23:59 Intake Total 350 / 350 1668.33 / 1968.33 654.57 / 654.57 Output Total 500 / 500 751 / 1151 900 / 900 Balance -150 / -150 917.33 / 817.33 -245.43 / -245.43 Lab / Micro Data 04/18/24 05:19 04/18/24 05:19 Labs: Laboratory Results - last 24 hr 04/18/24 12:10: APTT 35.1 04/18/24 18:48: APTT 40.7 H 04/19/24 02:40: APTT 42.4 H Assessment & Plan Assessment/Plan (1) Deep vein thrombosis (DVT): QUALIFIERS: DVT location: lower extremity Affected thrombotic vein of extremity: iliac Chronicity: acute Laterality: left Qualified Code(s): I82.422 - Acute embolism and thrombosis of left iliac vein PLAN: -cont heparin -cont pain control -plan thrombectomy 04/23
[2024-04-19 09:56] LABS: Partial Thromboplast Time 48.5 Seconds (24.1-36.2)
[2024-04-19] MEDS: Pantoprazole Sodium 40 MG Tablet PO (10:15)
[2024-04-19] MEDS: Paroxetine 20 MG Tablet PO (10:15)
[2024-04-19] MEDS: Aspirin E.C. 81 MG Tablet PO (10:15)
[2024-04-19] MEDS: Multivitamins,Therapeutic Tablet 1 TABLET PO (10:15)
[2024-04-19 12:00] VITALS: BP 145/88; PULSE 86; RESP 18; TEMP 36.1; O2SAT 98
[2024-04-19] MEDS: HEPARIN/D5w 25,000 UNITS 25,000 UNITS/250 ML IV.SOLN. 24 UNITS CONT INF (12:11)
[2024-04-19 16:10] LABS: Partial Thromboplast Time 44.6 Seconds (24.1-36.2)
[2024-04-19 18:00] VITALS: BP 145/82; PULSE 93; RESP 18; TEMP 36.5; O2SAT 100
[2024-04-19 22:00] VITALS: BP 146/69; PULSE 77; RESP 18; TEMP 36.7; O2SAT 99
[2024-04-19 22:47] LABS: Partial Thromboplast Time 55.4 Seconds (24.1-36.2)
[2024-04-19] MEDS: HEPARIN/D5w 25,000 UNITS 25,000 UNITS/250 ML IV.SOLN. 25 UNITS CONT INF (22:47)
[2024-04-20] VITALS (8 sets, daily range): BP systolic 140–156; BP diastolic 71–85; PULSE 61–81; RESP 16–18; TEMP 36.3–36.8; O2SAT 95–100; BMI 31.7
[2024-04-20] MEDS: HYDROmorphone Inj 0.2 MG/ML SYRINGE IV ×5 (00:56→20:28)
[2024-04-20] MEDS: 0.9% Saline Lock 10 ML Syringe IV ×3 (00:57→17:41)
[2024-04-20] MEDS: Ketorolac 30 MG/ML Syringe IV ×4 (02:43→23:27)
[2024-04-20] MEDS: Acetaminophen 500 MG Tablet 1000 MG PO ×2 (02:44→14:40)
[2024-04-20] MEDS: oxyCODONE 5 MG Tablet PO ×4 (02:44→22:16)
[2024-04-20] MEDS: Heparin Injection (Vial) 5,000 UNIT/ML VIAL IV ×2 (05:25→16:39)
[2024-04-20] MEDS: Multivitamins,Therapeutic Tablet 1 TABLET PO (08:39)
[2024-04-20] MEDS: Aspirin E.C. 81 MG Tablet PO (08:39)
[2024-04-20] MEDS: Pantoprazole Sodium 40 MG Tablet PO (08:40)
[2024-04-20] MEDS: Polyethylene Glycol 3350 17 GM PACKET PO (08:40)
[2024-04-20] MEDS: Paroxetine 20 MG Tablet PO (08:40)
[2024-04-20] MEDS: Senna/Docusate Sodium 1 Tablet 2 TABLET PO ×2 (08:41→22:16)
[2024-04-20] MEDS: HEPARIN/D5w 25,000 UNITS 25,000 UNITS/250 ML IV.SOLN. 27 UNITS CONT INF (08:58)
[2024-04-20 10:33] LABS: Partial Thromboplast Time 59.6 Seconds (24.1-36.2)
[2024-04-20 10:59] LABS: Absolute Lymphocyte Count 2.06 X10^3/uL (0.83-4.51); Absolute Neutrophil Count 6.1 X10^3/uL (2.0-7.7); Basophil# 0.05 X10^3/uL; Basophil% 0.5 % (0-1); Eosinophil# 0.31 X10^3/uL; Eosinophils% 3.1 % (0-5); Hematocrit 33.3 % (40-54); Hemoglobin 11.2 g/dL (13.0-16.5); Lymphocyte # 2.06 X10^3/ul (0.83-4.51); Lymphocyte % 20.7 % (19-41); Mean Corp Hgb Conc 33.6 g/dL (32-36); Mean Corpuscular Hgb 31.5 pg (27.0-32.0); Mean Corpuscular Volume 93.8 fL (80-94); Mean Platelet Vol. 10.4 fl (6.2-12.0); Monocyte# 1.35 X10^3/uL; Monocyte% 13.5 % (0-10); NRBC Flagged by Analyzer 0 % (0-5); Neutrophil # 6.13 X10^3/uL (2.7-7.7); Neutrophil % 61.5 % (47-70); Platelet Count 310 K/mm3 (150-450); RBC Distribution Width CV 11.1 % (11.6-14.6); Red Blood Count 3.55 M/mm3 (4.6-6.2)
--- NOTE | 2024-04-20 14:27 | PCM.PN.SRG ---
Subjective Subjective Leg feels a little better today, pain control adequate at most times. Continuing with elevation Objective Data Objective Data A&O x3, NAD RRR Resp non labored +DP/PT LLE +1 edema Vital Signs: Vital Signs Temp Pulse Resp BP Pulse Ox O2 Del Method 97.5 F L 81 16 141/82 H 99 Room Air 04/20/24 08:44 04/20/24 08:44 04/20/24 08:44 04/20/24 08:44 04/20/24 08:44 04/20/24 08:44 Oxygen Delivery Method Room Air Weight: 281 lb 15.539 oz Body Mass Index (BMI) 31.7 Intake & Output: Intake and Output for Last 24 Hours 04/18/24 04/19/24 04/20/24 23:59 23:59 23:59 Intake Total 1668.33 / 1968.33 2501.24 / 3001.24 1150.00 / 1150.00 Output Total 751 / 1151 1150 / 1600 1050 / 1050 Balance 917.33 / 817.33 1351.24 / 1401.24 100.00 / 100.00 Lab / Micro Data 04/20/24 04:29 04/18/24 05:19 Labs: Laboratory Results - last 24 hr 04/19/24 15:52: APTT 44.6 H 04/19/24 22:25: APTT 55.4 H 04/20/24 04:29: WBC 10.0, RBC 3.55 L, Hgb 11.2 L, Hct 33.3 L, MCV 93.8, MCH 31.5, MCHC 33.6, RDW Std Deviation 38.0, RDW Coeff of Neha 11.1 L, Plt Count 310, MPV 10.4, Immature Gran % (Auto) 0.700, Neut % (Auto) 61.5, Lymph % (Auto) 20.7, [place] % (Auto) 13.5 H, Eos % (Auto) 3.1, Baso % (Auto) 0.5, Absolute Neuts (auto) 6.1, Absolute Lymphs (auto) 2.06, Nucleated RBC % 0, APTT 37.0 H 04/20/24 10:13: APTT 59.6 H Assessment & Plan Assessment/Plan (1) Deep vein thrombosis (DVT): QUALIFIERS: DVT location: lower extremity Affected thrombotic vein of extremity: iliac Chronicity: acute Laterality: left Qualified Code(s): I82.422 - Acute embolism and thrombosis of left iliac vein PLAN: -cont heparin -elevate leg -thrombectomy Sunday; if able will attempt to move up to Sunday
[2024-04-20 16:02] LABS: Partial Thromboplast Time 52.9 Seconds (24.1-36.2)
[2024-04-20] MEDS: HEPARIN/D5w 25,000 UNITS 25,000 UNITS/250 ML IV.SOLN. 28 UNITS CONT INF (18:05)
[2024-04-20 22:23] LABS: Partial Thromboplast Time 54.2 Seconds (24.1-36.2)
[2024-04-21] MEDS: HYDROmorphone Inj 0.2 MG/ML SYRINGE IV ×5 (01:04→22:30)
[2024-04-21 02:26] VITALS: PULSE 75
[2024-04-21] MEDS: oxyCODONE 5 MG Tablet PO ×4 (02:36→20:33)
[2024-04-21] MEDS: HEPARIN/D5w 25,000 UNITS 25,000 UNITS/250 ML IV.SOLN. 29 UNITS CONT INF ×3 (02:36→17:23)
[2024-04-21 05:00] VITALS: BMI 31.8
[2024-04-21 05:42] LABS: Hematocrit 34.5 % (40-54); Hemoglobin 11.3 g/dL (13.0-16.5); Mean Corp Hgb Conc 32.8 g/dL (32-36); Mean Corpuscular Hgb 31.2 pg (27.0-32.0); Mean Corpuscular Volume 95.3 fL (80-94); Mean Platelet Vol. 9.5 fl (6.2-12.0); Platelet Count 312 K/mm3 (150-450); RBC Distribution Width CV 11.1 % (11.6-14.6); RBC Distribution Width SD 38.6 fl (35.1-43.9); Red Blood Count 3.62 M/mm3 (4.6-6.2)
[2024-04-21 06:11] LABS: Partial Thromboplast Time 76.1 Seconds (24.1-36.2)
[2024-04-21] MEDS: Acetaminophen 500 MG Tablet 1000 MG PO ×2 (06:20→20:33)
[2024-04-21 08:37] VITALS: BP 142/80; PULSE 69; RESP 16; TEMP 36.6; O2SAT 94
[2024-04-21] MEDS: Polyethylene Glycol 3350 17 GM PACKET PO (08:39)
[2024-04-21] MEDS: Aspirin E.C. 81 MG Tablet PO (08:39)
[2024-04-21] MEDS: Multivitamins,Therapeutic Tablet 1 TABLET PO (08:39)
[2024-04-21] MEDS: Pantoprazole Sodium 40 MG Tablet PO (08:40)
[2024-04-21] MEDS: Senna/Docusate Sodium 1 Tablet 2 TABLET PO (08:40)
[2024-04-21] MEDS: Paroxetine 20 MG Tablet PO (08:40)
[2024-04-21] MEDS: Ketorolac 30 MG/ML Syringe IV ×2 (08:47→15:14)
--- NOTE | 2024-04-21 09:57 | PCM.PN.SRG ---
Subjective Subjective More comfortable today, continues with leg elevation. Objective Data Objective Data A&O x 3, NAD RRR Resp non labored 1+ LLE edema Vital Signs: Vital Signs Temp Pulse Resp BP Pulse Ox O2 Del Method 97.9 F 69 16 142/80 H 94 Room Air 04/21/24 08:37 04/21/24 08:37 04/21/24 08:37 04/21/24 08:37 04/21/24 08:37 04/21/24 08:37 Oxygen Delivery Method Room Air Weight: 282 lb 3.067 oz Body Mass Index (BMI) 31.8 Intake & Output: Intake and Output for Last 24 Hours 04/19/24 04/20/24 04/21/24 23:59 23:59 23:59 Intake Total 2501.24 / 3001.24 3248.31 / 3248.31 730.34 / 730.34 Output Total 1150 / 1600 1900 / 1900 1450 / 1450 Balance 1351.24 / 1401.24 1348.31 / 1348.31 -719.66 / -719.66 Lab / Micro Data 04/21/24 05:30 04/18/24 05:19 Labs: Laboratory Results - last 24 hr 04/20/24 04:29: WBC 10.0, RBC 3.55 L, Hgb 11.2 L, Hct 33.3 L, MCV 93.8, MCH 31.5, MCHC 33.6, RDW Std Deviation 38.0, RDW Coeff of Neha 11.1 L, Plt Count 310, MPV 10.4, Immature Gran % (Auto) 0.700, Neut % (Auto) 61.5, Lymph % (Auto) 20.7, [place] % (Auto) 13.5 H, Eos % (Auto) 3.1, Baso % (Auto) 0.5, Absolute Neuts (auto) 6.1, Absolute Lymphs (auto) 2.06, Nucleated RBC % 0 04/20/24 10:13: APTT 59.6 H 04/20/24 15:42: APTT 52.9 H 04/20/24 22:05: APTT 54.2 H 04/21/24 05:30: WBC 9.0, RBC 3.62 L, Hgb 11.3 L, Hct 34.5 L, MCV 95.3 H, MCH 31.2, MCHC 32.8, RDW Std Deviation 38.6, RDW Coeff of Neha 11.1 L, Plt Count 312, MPV 9.5, APTT 76.1 H Assessment & Plan Assessment/Plan (1) Deep vein thrombosis (DVT): QUALIFIERS: DVT location: lower extremity Affected thrombotic vein of extremity: iliac Chronicity: acute Laterality: left Qualified Code(s): I82.422 - Acute embolism and thrombosis of left iliac vein PLAN: -hgb and plt stable -symptoms stable -plan thrombectomy Sunday; NPO tonight though in case of cancelation/opening in schedule tomorrow Charges/Coding Visit Charges Inpatient E&M: 76064 Subs Hosp L2
[2024-04-21 13:28] LABS: Partial Thromboplast Time 69.7 Seconds (24.1-36.2)
[2024-04-21 15:14] VITALS: BP 146/73; PULSE 85; RESP 16; TEMP 36.6; O2SAT 100
[2024-04-21] MEDS: 0.9% Saline Lock 10 ML Syringe IV ×2 (19:13→22:30)
[2024-04-21 20:32] VITALS: BP 150/79; PULSE 81; RESP 16; TEMP 36.9; O2SAT 100
[2024-04-21] MEDS: MELATONIN 3 MG TABLET PO (20:33)
[2024-04-22 01:43] VITALS: BP 159/88; PULSE 76; RESP 16; TEMP 36.6; O2SAT 98
[2024-04-22] MEDS: 0.9% Saline Lock 10 ML Syringe IV ×5 (01:48→20:52)
[2024-04-22] MEDS: HEPARIN/D5w 25,000 UNITS 25,000 UNITS/250 ML IV.SOLN. 29 UNITS CONT INF ×3 (01:48→19:30)
[2024-04-22] MEDS: HYDROmorphone Inj 0.2 MG/ML SYRINGE IV ×3 (01:49→20:51)
[2024-04-22 04:56] VITALS: BMI 31.9
[2024-04-22] MEDS: Ketorolac 30 MG/ML Syringe IV ×2 (06:09→13:54)
--- NOTE | 2024-04-22 06:22 | EKG12_ITS ---
Test Reason : PRE OP Blood Pressure : / mmHG Vent. Rate : 068 BPM Atrial Rate : 068 BPM P-R Int : 164 ms QRS Dur : 098 ms QT Int : 414 ms P-R-T Axes : 054 063 043 degrees QTc Int : 440 ms Normal sinus rhythm Normal ECG Confirmed by JENNIFER MARTINEZ, TOD ([id number]), photo editor MAGDIEL MARTINEZ ([id number]) on 04/22/2024 1:27:36 PM Referred By: Silvino Mar Confirmed By:TOD RODRIGUEZ MD
[2024-04-22 07:01] LABS: Hematocrit 34.7 % (40-54); Hemoglobin 11.6 g/dL (13.0-16.5); Mean Corp Hgb Conc 33.4 g/dL (32-36); Mean Corpuscular Hgb 31.4 pg (27.0-32.0); Mean Corpuscular Volume 93.8 fL (80-94); Mean Platelet Vol. 9.8 fl (6.2-12.0); Platelet Count 373 K/mm3 (150-450); RBC Distribution Width CV 10.9 % (11.6-14.6); RBC Distribution Width SD 37.1 fl (35.1-43.9); White Blood Count 11.7 K/mm3 (4.4-11.0)
[2024-04-22 07:21] LABS: International Normalized Ratio 1.1; Prothrombin Time (Protime)PT. 13.8 SECONDS (11.7-14.9)
[2024-04-22 07:52] LABS: AST(SGOT) 15 U/L (15-37); Alanine Aminotransfer ALT/SGPT 54 U/L (16-61); Albumin, Serum 2.5 g/dL (3.2-5.0); Alkaline Phosphatase 98 U/L (45-117); Anion Gap 8 (5-15); BUN 11 mg/dL (7-18); BUN/Creat Ratio 15.5 RATIO (10-20); Bilirubin, Direct 0.11 mg/dL (0.00-0.30); Calcium,Total 9.4 mg/dL (8.5-10.1); Chloride 103 mmol/L (98-107); Creatinine, Serum 0.71 mg/dL (0.70-1.30); EST Glomerular Filtration Rate 136 mL/min (>60); Est Glom Filt Rate - Afr Amer 164 mL/min (>60); Estimated Creatinine Clearance 225.34 ml/min; Globulin 5.3 g/dL (2.2-4.2); Glucose 96 mg/dL (74-106); Potassium 4.2 mmol/L (3.5-5.1); Protein, Total 7.8 g/dL (6.4-8.2); Sodium Level 135 mmol/L (136-145)
[2024-04-22 08:00] VITALS: BP 134/78; PULSE 79; RESP 18; TEMP 36.8; O2SAT 99
[2024-04-22] MEDS: Paroxetine 20 MG Tablet PO (09:31)
[2024-04-22] MEDS: Pantoprazole Sodium 40 MG Tablet PO (09:31)
[2024-04-22] MEDS: Multivitamins,Therapeutic Tablet 1 TABLET PO (09:32)
[2024-04-22] MEDS: Aspirin E.C. 81 MG Tablet PO (09:32)
[2024-04-22] MEDS: oxyCODONE 5 MG Tablet PO ×3 (09:33→22:39)
[2024-04-22] MEDS: Senna/Docusate Sodium 1 Tablet 2 TABLET PO (09:33)
[2024-04-22] MEDS: Polyethylene Glycol 3350 17 GM PACKET PO (09:33)
[2024-04-22] MEDS: Acetaminophen 500 MG Tablet 1000 MG PO ×2 (09:33→18:30)
[2024-04-22 14:00] VITALS: BP 147/88; PULSE 82; RESP 18; TEMP 36.8; O2SAT 100
--- NOTE | 2024-04-22 18:43 | PN.SURG_ITS ---
Subjective Subjective Pain last evening more severe, better controlled today. Objective Data Objective Data A&O x 3, NAD RRR Resp non labored LLE 1+ edema Vital Signs: Vital Signs Temp Pulse Resp BP Pulse Ox O2 Del Method 98.3 F 82 18 147/88 H 100 Room Air 04/22/24 14:00 04/22/24 14:00 04/22/24 14:00 04/22/24 14:00 04/22/24 14:00 04/22/24 14:00 Oxygen Delivery Method Room Air Weight: 283 lb 8.231 oz Body Mass Index (BMI) 31.9 Intake & Output: Intake and Output for Last 24 Hours 04/20/24 04/21/24 04/22/24 23:59 23:59 23:59 Intake Total 3248.31 / 3248.31 3769.59 / 3769.59 894.08 / 894.08 Output Total 1900 / 1900 1850 / 2850 2100 / 2100 Balance 1348.31 / 1348.31 1919.59 / 919.59 -1205.92 / -1205.92 Lab / Micro Data 04/22/24 05:53 04/22/24 05:53 Labs: Laboratory Results - last 24 hr 04/22/24 05:53: WBC 11.7 H, RBC 3.70 L, Hgb 11.6 L, Hct 34.7 L, MCV 93.8, MCH 31.4, MCHC 33.4, RDW Std Deviation 37.1, RDW Coeff of Neha 10.9 L, Plt Count 373, MPV 9.8, PT 13.8, INR 1.1, APTT 65.0 H, Sodium 135 L, Potassium 4.2, Chloride 103, Carbon Dioxide 24.0, Anion Gap 8, BUN 11, Creatinine 0.71, Estim Creat Clear Calc 225.34, Est GFR (MDRD) Af Amer 164, Est GFR (MDRD) Non-Af 136, BUN/Creatinine Ratio 15.5, Glucose 96, Calcium 9.4, Total Bilirubin 0.40, Direct Bilirubin 0.11, AST 15, ALT 54, Alkaline Phosphatase 98, Total Protein 7.8, A lbumin 2.5 L, Globulin 5.3 H Assessment & Plan Assessment/Plan (1) Deep vein thrombosis (DVT): QUALIFIERS: DVT location: lower extremity Affected thrombotic vein of extremity: iliac Chronicity: acute Laterality: left Qualified Code(s): I82.422 - Acute embolism and thrombosis of left iliac vein PLAN: -venogram/thrombectomy tomorrow
[2024-04-22 20:45] VITALS: BP 155/77; PULSE 87; RESP 16; TEMP 37; O2SAT 98
[2024-04-23] VITALS (8 sets, daily range): BP systolic 139–163; BP diastolic 76–89; PULSE 79–122; RESP 11–24; TEMP 36.6–36.8; O2SAT 94–100; BMI 31.8
[2024-04-23] MEDS: 0.9% Saline Lock 10 ML Syringe IV ×4 (00:11→12:24)
[2024-04-23] MEDS: HYDROmorphone Inj 0.2 MG/ML SYRINGE IV ×4 (00:11→12:25)
[2024-04-23] MEDS: oxyCODONE 5 MG Tablet PO ×2 (02:49→20:18)
[2024-04-23] MEDS: HEPARIN/D5w 25,000 UNITS 25,000 UNITS/250 ML IV.SOLN. 29 UNITS CONT INF ×2 (04:40→13:19)
[2024-04-23 05:58] LABS: Hematocrit 33.5 % (40-54); Hemoglobin 11.6 g/dL (13.0-16.5); Mean Corp Hgb Conc 34.6 g/dL (32-36); Mean Corpuscular Hgb 32.1 pg (27.0-32.0); Mean Corpuscular Volume 92.8 fL (80-94); Mean Platelet Vol. 9.6 fl (6.2-12.0); Platelet Count 354 K/mm3 (150-450); RBC Distribution Width SD 37.5 fl (35.1-43.9); Red Blood Count 3.61 M/mm3 (4.6-6.2)
[2024-04-23 06:12] LABS: Partial Thromboplast Time 58.9 Seconds (24.1-36.2)
[2024-04-23] MEDS: NORMAL SALINE 0.9% IV (17:15)
[2024-04-23] MEDS: ALTEPLASE IV (17:15)
[2024-04-23] MEDS: HEPARIN/D5w 25,000 UNITS 25,000 UNITS/250 ML IV.SOLN. 5 UNITS CONT INF (17:15)
[2024-04-23 17:36] LABS: ACT Activated Clotting Time 171 sec (74-137)
--- NOTE | 2024-04-23 17:47 | NURSING ---
Called ICU for report for pt who will go to ICU after surgery. ICU states report was received from labor relations analyst and has no further questions.
[2024-04-23] MEDS: HYDROmorphone 1 MG/ML Syringe IV ×3 (18:24→23:32)
[2024-04-23 18:36] LABS: Absolute Neutrophil Count 9.1 X10^3/uL (2.0-7.7); Basophil# 0.06 X10^3/uL; Basophil% 0.5 % (0-1); Eosinophil# 0.07 X10^3/uL; Eosinophils% 0.6 % (0-5); Hematocrit 34.1 % (40-54); Hemoglobin 11.2 g/dL (13.0-16.5); Lymphocyte % 11.5 % (19-41); Mean Corp Hgb Conc 32.8 g/dL (32-36); Mean Corpuscular Hgb 30.8 pg (27.0-32.0); Mean Corpuscular Volume 93.7 fL (80-94); Mean Platelet Vol. 9.4 fl (6.2-12.0); Monocyte# 1.36 X10^3/uL; Monocyte% 11.2 % (0-10); NRBC Flagged by Analyzer 0 % (0-5); Neutrophil # 9.12 X10^3/uL (2.7-7.7); Platelet Count 335 K/mm3 (150-450); RBC Distribution Width CV 11.1 % (11.6-14.6); RBC Distribution Width SD 37.8 fl (35.1-43.9); Red Blood Count 3.64 M/mm3 (4.6-6.2); White Blood Count 12.2 K/mm3 (4.4-11.0)
[2024-04-23 18:37] LABS: POSITIVE COUNT NO; POSITIVE DIFFERENTIAL NO; POSITIVE MORPHOLOGY NO
[2024-04-23 18:47] LABS: Fibrinogen 886 mg/dl (203-444); Partial Thromboplast Time 44.5 Seconds (24.1-36.2)
--- NOTE | 2024-04-23 19:20 | OP.PCM_ITS ---
Report of Operation Date of Procedure: 04/23/24 Pre-Operative Diagnosis: Deep venous thrombosis of the left lower extremity, il iofemoral and popliteal Post-Operative Diagnosis: Same Surgery/Procedure Performed:: Venogram left lower extremity and inferior vena cava Intravascular ultrasound of the inferior vena cava, left common iliac vein, left external iliac vein, left common femoral vein, left femoral vein Percutaneous mechanical thrombectomy of the left common iliac vein, left external iliac vein, left common femoral vein, left femoral vein Placement of ultrasound assisted lytic infusion catheters Angioplasty left common iliac vein, left external iliac vein, left common femoral vein Surgeon: Silvino Mar Type of Anesthesia: Local and Sedation,Conscious Estimated Blood Loss (mL): 400 Description of Procedure: HPI: Patient is a 33-year-old male with history of previous unprovoked deep venous thrombosis who had undergone venogram with placement of IVC and common iliac vein stents approximately 1 year prior. He had been doing well and on his 1 year surveillance imaging the stents were satisfactory and he was transition to single agent antiplatelet. In early March he was ill with COVID and was significantly less active and approximately 1 week after this he noted significant left lower extremity pain and edema. A CT scan suggested left iliac vein stent thrombosis and duplex confirmed extensive left lower extremity deep venous thrombosis. He has failed to improve with simple anticoagulation so he presents now for mechanical thrombectomy. Description of procedure: Upon obtaining form consent and verification correct patient procedure site patient was taken to the [employer] [facility] where he was positioned prepped and draped in usual sterile fashion. Timeouts performed conscious sedation administered with Versed and fentanyl. Skin overlying the left popliteal vein was Nestabs 1% lidocaine the vessel accessed with micropuncture needle wire. This was exchanged for a micropuncture sheath through which injection left lower extremity venogram was performed revealing satisfactory position with no extravasation or dissection. This also revealed significant femoral vein thrombus with no significant reconstitution into the vena cava. Through the micropuncture sheath a glide advantage wire was advanced and the micropuncture sheath exchanged for an 8 Irish sheath. Through the 8 Irish sheath the glide advantage wire and an angled quick cross catheter we are able to navigate the thrombus filled vessels and ultimately navigate through the stents maintaining position what appeared to be true lumen without any stent strut crossing. Once the wire and catheter advanced in the vena cava the wires were withdrawn and hand-injection venacavogram performed revealing satisfactory positioning. A wire was then readvanced and the catheter withdrawn and an 8 Irish intravascular ultrasound probe advanced into the vena cava and a recorded pullback performed of the IVC, left iliac and femoral vessels. This confirmed position within the main venous outflow vessels and placement within the lumen of the stent. This also revealed significant thrombus throughout with mixed chronicity. The patient was then bolused with heparin and subsequent dosing performed based on ACT results. In order to facilitate thrombus extraction a 6 mm x 150 angioplasty balloon was advanced and inflated to nominal for multiple inflations across the iliac veins into the common femoral vein. The 8 Irish sheath then exchanged for a 16 Irish sheath through which a [employer] mechanical aspiration device was advanced. This was then engaged throughout the femoral vein, common femoral vein, external iliac vein. Once we had what appeared to be significant thrombus return we then performed repeat ilio caval imaging which did show new flow lumen with some contrast transit abruptly stopping within the stented segment which had not yet had the thrombectomy performed. The device was then engaged throughout the stented segments of the external and common iliac veins for multiple passes. Repeat venogram revealed contrast transit through to the vena cava but still significant thrombus burden so the segment was then treated with angioplasty to 14 mm throughout the stent. Repeat venogram revealed significant improvement in flow lumen with better contrast transit and significantly less lumen compromise from thrombus. Intravascular sound probe was then readvanced and was utilized to assess the treated segments which did unfortunately reveal continued significant thrombus burden which was not apparent based on the contrast imaging. Given the poor luminal gain visualized on the IVUS was felt that lytic infusion would be beneficial so a 40 cm EKOS catheter was then advanced into position with the distal aspect at the top of the iliac vein stent in the inferior more proximal aspect in the common femoral vein. 1 mg/h tPA was then started along with heparin and the cooling solution per manufactures instructions. The patient was then taken to the intensive care unit for hemodynamic and neurologic monitoring.
[2024-04-23] MEDS: Acetaminophen 500 MG Tablet 1000 MG PO (20:17)
[2024-04-24] VITALS (21 sets, daily range): BP systolic 130–148; BP diastolic 68–89; PULSE 83–111; RESP 13–24; TEMP 36.2–37.2; O2SAT 86–100; BMI 30.9
[2024-04-24 00:45] LABS: Absolute Lymphocyte Count 1.89 X10^3/uL (0.83-4.51); Absolute Neutrophil Count 7.8 X10^3/uL (2.0-7.7); Basophil# 0.05 X10^3/uL; Basophil% 0.4 % (0-1); Eosinophil# 0.09 X10^3/uL; Eosinophils% 0.8 % (0-5); Hematocrit 35.6 % (40-54); Hemoglobin 11.9 g/dL (13.0-16.5); Lymphocyte # 1.89 X10^3/ul (0.83-4.51); Lymphocyte % 16.1 % (19-41); Mean Corp Hgb Conc 33.4 g/dL (32-36); Mean Corpuscular Hgb 31.5 pg (27.0-32.0); Mean Corpuscular Volume 94.2 fL (80-94); Mean Platelet Vol. 9.2 fl (6.2-12.0); Monocyte# 1.72 X10^3/uL; Monocyte% 14.6 % (0-10); NRBC Flagged by Analyzer 0 % (0-5); Neutrophil # 7.83 X10^3/uL (2.7-7.7); Neutrophil % 66.5 % (47-70); POSITIVE DIFFERENTIAL YES; Platelet Count 331 K/mm3 (150-450); RBC Distribution Width CV 11.2 % (11.6-14.6); RBC Distribution Width SD 38.5 fl (35.1-43.9); Red Blood Count 3.78 M/mm3 (4.6-6.2); White Blood Count 11.8 K/mm3 (4.4-11.0)
[2024-04-24 00:49] LABS: Differential Indicated SCAN CRITERIA MET
[2024-04-24 01:02] LABS: Fibrinogen 561 mg/dl (203-444); Partial Thromboplast Time 31.1 Seconds (24.1-36.2)
[2024-04-24 01:43] LABS: Differential Comment SCANNED
[2024-04-24] MEDS: HYDROmorphone 1 MG/ML Syringe IV ×5 (01:43→17:27)
[2024-04-24] MEDS: oxyCODONE 5 MG Tablet PO ×2 (01:44→09:42)
[2024-04-24 05:49] LABS: Absolute Lymphocyte Count 1.38 X10^3/uL (0.83-4.51); Absolute Neutrophil Count 7.6 X10^3/uL (2.0-7.7); Basophil# 0.04 X10^3/uL; Basophil% 0.4 % (0-1); Eosinophil# 0.14 X10^3/uL; Eosinophils% 1.3 % (0-5); Hemoglobin 11.9 g/dL (13.0-16.5); Lymphocyte # 1.38 X10^3/ul (0.83-4.51); Lymphocyte % 12.6 % (19-41); Mean Corp Hgb Conc 33.1 g/dL (32-36); Mean Corpuscular Hgb 31.4 pg (27.0-32.0); Mean Platelet Vol. 9.1 fl (6.2-12.0); Monocyte# 1.65 X10^3/uL; Monocyte% 15.1 % (0-10); NRBC Flagged by Analyzer 0 % (0-5); Neutrophil # 7.56 X10^3/uL (2.7-7.7); POSITIVE DIFFERENTIAL YES; Platelet Count 303 K/mm3 (150-450); RBC Distribution Width CV 11.4 % (11.6-14.6); RBC Distribution Width SD 39.6 fl (35.1-43.9); Red Blood Count 3.79 M/mm3 (4.6-6.2); White Blood Count 10.9 K/mm3 (4.4-11.0)
[2024-04-24 05:50] LABS: Differential Indicated SCAN CRITERIA MET
[2024-04-24 06:02] LABS: Anion Gap 9 (5-15); BUN 15 mg/dL (7-18); BUN/Creat Ratio 18.3 RATIO (10-20); Calcium,Total 9.2 mg/dL (8.5-10.1); Chloride 103 mmol/L (98-107); Creatinine, Serum 0.82 mg/dL (0.70-1.30); EST Glomerular Filtration Rate 114 mL/min (>60); Est Glom Filt Rate - Afr Amer 138 mL/min (>60); Estimated Creatinine Clearance 191.99 ml/min; Fibrinogen 538 mg/dl (203-444); Glucose 104 mg/dL (74-106); Partial Thromboplast Time 32.4 Seconds (24.1-36.2); Potassium 4.2 mmol/L (3.5-5.1); Sodium Level 136 mmol/L (136-145)
[2024-04-24] MEDS: 0.9% Saline Lock 10 ML Syringe IV ×2 (06:22→17:27)
[2024-04-24 07:01] LABS: Differential Comment SCANNED
--- NOTE | 2024-04-24 08:44 | CASEMGMT ---
Social Work Pt informed admitting nurse he does not have advance directives and is not interested in additional information at this time. SW will remain available to provide education should pt change his mind. REYNA Encarnacion
[2024-04-24] MEDS: HEPARIN/D5w 25,000 UNITS 25,000 UNITS/250 ML IV.SOLN. 29 UNITS CONT INF ×2 (09:15→15:19)
[2024-04-24] MEDS: Acetaminophen 500 MG Tablet 1000 MG PO ×2 (09:43→21:28)
[2024-04-24] MEDS: Paroxetine 20 MG Tablet PO (09:48)
[2024-04-24] MEDS: Aspirin E.C. 81 MG Tablet PO (09:49)
[2024-04-24] MEDS: Senna/Docusate Sodium 1 Tablet 2 TABLET PO ×2 (09:49→21:24)
[2024-04-24] MEDS: Multivitamins,Therapeutic Tablet 1 TABLET PO (09:50)
[2024-04-24] MEDS: Pantoprazole Sodium 40 MG Tablet PO (09:50)
[2024-04-24 10:16] LABS: Pathologist Review Reviewed
--- NOTE | 2024-04-24 12:23 | PCM.OPRPT ---
Report of Operation Date of Procedure: 04/24/24 Pre-Operative Diagnosis: LLE DVT, prior placement of EKOS cathaters Post-Operative Diagnosis: same Surgery/Procedure Performed:: venogram IVC and left lower extremity , recheck of lysis angioplasty left common iliac vein, left external iliac vein IVUS IVC, left common iliac, external iliac, common femoral, femoral Surgeon: Silvino Mar Type of Anesthesia: Local and Sedation,Conscious Estimated Blood Loss (mL): 15 Description of Procedure: HPI: Patient is a 33-year-old male with deep vein thrombosis left iliac venous stents. He previously underwent mechanical thrombectomy though there was residual mixed chronicity thrombus remaining. EKOS lytic infusion catheters were placed and allowed to infuse overnight. He returns now for repeat venogram lysis check. Description of procedure: Upon obtaining informed consent and verification of correct patient procedure and site he was taken to the clinical laboratory aides teacher and positioned prepped and draped in the usual fashion. Time out was performed and sedation administered with versed and fentanyl. The ultrasonic wire was withdrawn and glide advantage wire advanced through the infusion catheter. The infusion catheter and 16 Fr sheath withdrawn and a new 16 Fr sheath advanced over the wire. The patient was bolused with heparin and allowed to circulate for 3 minutes. Hand injection venogram of the left lower extremity, left iliac veins and IVC was performed which revealed significant improvement in flow channel and now unimpeded contrast transit through the femoral vein into the iliac system. There was continued stenosis in the mid external iliac vein inferior to the stent, as well as in the mid-superior stent segments. An .035 IVUS catheter was then advanced over the wire and recorded pullback performed of the IVC, left common/external iliac veins, common femoral vein, femoral vein. This confirmed significant clearance of residual thrombus with focal segments remaining in the external iliac vein and within the stent. A 14 mm [employer] [place] balloon was then advanced over the wire and inflated to nominal sequentially at each of the in stent stenosis segments. The balloon was then withdrawn and a 12 mm [employer] [place] balloon advanced into the external iliac vein and inflated to nominal. Repeat venogram and IVUS imaging revealed but not fully resolved areas of stenosis. The contrast did transit these segments unimpeded so it was felt that further stent placement at this time was not appropriate. Sheath and wire were then withdrawn and a silk pursestring suture placed in the skin. Manual pressure was then held for 5 minutes until hemostasis obtained. The patient was then taken to the ICU for further monitoring.
[2024-04-24] MEDS: Polyethylene Glycol 3350 17 GM PACKET PO (15:19)
--- NOTE | 2024-04-24 15:47 | CHAPLAIN ---
Type of Pastoral Visit ___ Initial Visit ___ Follow-up Visit ___ On-call Visit ___ General Patient Visit ___ Spiritual Assessment ___ Family Conference ___ Bereavement ___ Rapid Response ___ Code Blue ___ Other (describe below) Pastoral Care Referral From ___ Patient ___ Family ___ Nurse ___ Physician ___ Director Of Event Sales ___ Mobile Plant Operators ___ Other (describe below) Sacrament/Intervention ___ Active listening ___ Anointing ___ Orthodoxy ___ Bereavement ___ Communion ___ Mary exploration ___ ___ Life review ___ Prayer ___ Reconciliation ___ Sacrament of Sick ___ Supportive presence ___ Wedding ___ Other (describe below) Pastoral Comments patient was sleeping after his procedure today; pt had asked RN for quiet so visit did not occur
[2024-04-24 16:03] LABS: Partial Thromboplast Time 110.8 Seconds (24.1-36.2)
[2024-04-24] MEDS: Mag /Aluminum/Simeth WCH UDC 30 ML ORAL.SUSP PO (17:42)
[2024-04-24] MEDS: oxyCODONE 5 MG Tablet 10 MG PO (19:22)
[2024-04-24] MEDS: MELATONIN 3 MG TABLET PO (21:24)
[2024-04-25] VITALS: BP 139/69; PULSE 84; RESP 13; TEMP 36.3; O2SAT 98
[2024-04-25] MEDS: oxyCODONE 5 MG Tablet 10 MG PO ×3 (00:06→11:27)
[2024-04-25 00:32] LABS: Partial Thromboplast Time 66.6 Seconds (24.1-36.2)
[2024-04-25] MEDS: HEPARIN/D5w 25,000 UNITS 25,000 UNITS/250 ML IV.SOLN. 26 UNITS CONT INF (02:00)
[2024-04-25 06:00] VITALS: BP 140/79; PULSE 80; RESP 20; TEMP 36.4; O2SAT 98; BMI 30.4
[2024-04-25 07:27] LABS: Partial Thromboplast Time 41.6 Seconds (24.1-36.2)
[2024-04-25 08:31] VITALS: BP 128/75; PULSE 100; RESP 16; TEMP 36.6; O2SAT 100
[2024-04-25] MEDS: Multivitamins,Therapeutic Tablet 1 TABLET PO (08:37)
--- NOTE | 2024-04-25 10:10 | PCM.PN.SRG ---
Subjective Subjective Mr. Fernandez was seen this morning resting in the bedside chair. He reports that his leg pain is improving. He is anxious to go home. He did struggle a bit with physical therapy yesterday, required a walker for gait assistance. He has not been requiring Dilaudid overnight, has been managing with oxycodone and Tylenol. Hemoglobin has been stable. Objective Data Objective Data Vital Signs: Vital Signs Temp Pulse Resp BP Pulse Ox O2 Del Method 97.9 F 100 16 128/75 H 100 Room Air 04/25/24 08:31 04/25/24 08:31 04/25/24 08:31 04/25/24 08:31 04/25/24 08:31 04/25/24 08:31 Oxygen Delivery Method Room Air Weight: 271 lb 2.697 oz Body Mass Index (BMI) 30.4 Intake & Output: Intake and Output for Last 24 Hours 04/23/24 04/24/24 04/25/24 23:59 23:59 23:59 Intake Total 655.15 / 655.15 665.42 / 665.42 390.92 / 390.92 Output Total 2200 / 2400 775 / 1075 800 / 800 Balance -1544.85 / -1744.85 -109.58 / -409.58 -409.08 / -409.08 Lab / Micro Data 04/24/24 05:32 04/24/24 05:32 Labs: Laboratory Results - last 24 hr 04/24/24 00:30: Diff Path Review Reviewed 04/24/24 15:15: APTT 110.8 H* 04/24/24 23:45: APTT 66.6 H 04/25/24 07:11: APTT 41.6 H Physical Exam Const alert and oriented x3 General Appearance: cooperative HEENT normocephalic and head/scalp atraumatic Eyes EOMs intact bilaterally Neck General: trachea midline Resp normal respiratory effort, normal air movement and clear to auscultation bilaterally Effort and Inspection: Negative for uses accessory muscles Cardio regular rate and regular rhythm Extremity Extremity Narrative: Significant LLE edema, Dhruv wrap in place Skin General Skin Exam: no breakdown Lesions: no lesions Rashes: no rashes Wounds: Negative for wounds noted Neuro CN's II-XII intact bilaterally, no focal motor deficits and no sensory deficits noted Speech: speech normal Psych thought process normal, cooperative and affect normal Appearance: appropriate Assessment & Plan Assessment/Plan (1) Deep vein thrombosis (DVT): QUALIFIERS: DVT location: lower extremity Affected thrombotic vein of extremity: iliac Chronicity: acute Laterality: left Qualified Code(s): I82.422 - Acute embolism and thrombosis of left iliac vein PLAN: He is status post left lower extremity venogram with percutaneous mechanical thrombectomy of the left common iliac, external iliac, common femoral, femoral veins and placement of ultrasound assisted lytic infusion catheters on 04/23/2024 and left lower extremity venogram with recheck of lysis/removal of catheters and angioplasty of the left common iliac and external iliac veins on 04/24/2024. Significant improvement in thrombus burden was noted on the venogram yesterday. Hemoglobin stable overnight. Will transition from heparin back to Eliquis today. He will work with PT again today. Pending evaluation, anticipate discharge to home this afternoon. He does note that he has a walker available at home as well as a ramp to get inside. He does feel his pain is under sufficient control with oral pain medications.
[2024-04-25] MEDS: Polyethylene Glycol 3350 17 GM PACKET PO (10:42)
[2024-04-25] MEDS: Pantoprazole Sodium 40 MG Tablet PO (10:42)
[2024-04-25] MEDS: Aspirin E.C. 81 MG Tablet PO (10:42)
[2024-04-25] MEDS: APIXABAN 5 MG TABLET 10 MG PO (10:43)
[2024-04-25] MEDS: Senna/Docusate Sodium 1 Tablet 2 TABLET PO (10:43)
[2024-04-25] MEDS: Paroxetine 20 MG Tablet PO (10:43)
[2024-04-25] MEDS: Acetaminophen 500 MG Tablet 1000 MG PO (13:44)
[2024-04-25 13:48] LABS: Partial Thromboplast Time 36.5 Seconds (24.1-36.2)
--- NOTE | 2024-04-25 14:17 | PCM.DC.SUM ---
Providers Date of Admission: 04/17/24 Primary Care Physician: Dr. Raheem Nguyen MD Reason For Visit: DVT Diagnosis Discharge Diagnosis (1) Deep vein thrombosis (DVT): Status: Acute Code(s): I82.409 - Acute embolism and thrombosis of unspecified deep veins of unspecified lower extremity Qualifiers: Affected thrombotic vein of extremity: iliac Chronicity: acute DVT location: lower extremity Laterality: left Qualified Code(s): I82.422 - Acute embolism and thrombosis of left iliac vein Plan: He is status post left lower extremity venogram with percutaneous mechanical thrombectomy of the left common iliac, external iliac, common femoral, femoral veins and placement of ultrasound assisted lytic infusion catheters on 04/23/2024 and left lower extremity venogram with recheck of lysis/removal of catheters and angioplasty of the left common iliac and external iliac veins on 04/24/2024. Significant improvement in thrombus burden was noted on the venogram yesterday. Hemoglobin stable overnight. Will transition from heparin back to Eliquis today. He will work with PT again today. Pending evaluation, anticipate discharge to home this afternoon. He does note that he has a walker available at home as well as a ramp to get inside. He does feel his pain is under sufficient control with oral pain medications. Medications at Discharge Home Medications aspirin 81 mg tablet,delayed release (Adult Aspirin Regimen) 81 mg PO DAILY #90 tabs 12/14/22 albuterol sulfate 90 mcg/actuation aerosol inhaler 2 puff inhalation Q4H PRN 04/13/24 pantoprazole 40 mg tablet,delayed release 40 mg PO DAILY 04/13/24 paroxetine HCl 20 mg tablet 20 mg PO DAILY 04/13/24 apixaban 5 mg (74 tabs) tablets in a dose pack (Eliquis DVT-PE Treat 30D Start) 5 mg PO BID #74 tabs 04/14/24 acetaminophen 500 mg tablet (Acetaminophen Extra Strength) 1,000 mg PO Q8H PRN fever or pain 04/17/24 multivitamin (Daily Multi-Vitamin tablet) 1 tab PO DAILY 04/17/24 naproxen 250 mg tablet 250 mg PO Q8H PRN pain 5 days #16 tabs 04/17/24 oxycodone 5 mg tablet 10 mg (2 x 5 mg) PO TID PRN pain 3 days #18 tabs 04/17/24 polyethylene glycol 3350 17 gram/dose oral powder (Miralax) 4 g PO DAILY #238 grams 04/17/24 apixaban 5 mg tablet (Eliquis) 10 mg (2 x 5 mg) PO BID #0 tabs 04/25/24 Hospital Course Summary of Care Provided Hospital Course: Saad Gtz is a 33-year-old male who was admitted on 04/19/2024 due to intractable lower extremity pain in setting of iliac vein DVT. He was admitted on a heparin drip and with pain control. He underwent left lower extremity venogram with percutaneous mechanical thrombectomy of the left common iliac, external iliac, common femoral, femoral veins and placement of ultrasound assisted lytic infusion catheters on 04/23/2024 and left lower extremity venogram with recheck of lysis/removal of catheters and angioplasty of the left common iliac and external iliac veins on 04/24/2024. Significant improvement in thrombus burden was noted on the venogram yesterday. Hemoglobin stable overnight. His pain has improved and is well-managed at present on oral medications. He did better with PT today and they feel he is safe to go home with use of a walker. He was transition from heparin back to Eliquis today. He will continue with Eliquis and aspirin. He is medically stable for discharge home today, he does have family support in place. He will return to the office in 1 week for suture removal. Physical Exam Const alert and oriented x3 General Appearance: cooperative HEENT normocephalic and head/scalp atraumatic Eyes EOMs intact bilaterally Neck General: trachea midline Resp normal respiratory effort, normal air movement and clear to auscultation bilaterally Effort and Inspection: Negative for uses accessory muscles Cardio regular rate and regular rhythm Extremity Extremity Narrative: Significant LLE edema, Dhruv wrap in place Skin General Skin Exam: no breakdown Lesions: no lesions Rashes: no rashes Wounds: Negative for wounds noted Neuro CN's II-XII intact bilaterally, no focal motor deficits and no sensory deficits noted Speech: speech normal Psych thought process normal, cooperative and affect normal Appearance: appropriate Weight / BMI Weight Weight: 271 lb 2.697 oz Body Mass Index (BMI) 30.4 ABG / Lab / Microbiology Data 04/24/24 05:32 04/24/24 05:32 Laboratory: Laboratory Results - last 24 hr 04/24/24 15:15: APTT 110.8 H* 04/24/24 23:45: APTT 66.6 H 04/25/24 07:11: APTT 41.6 H 04/25/24 13:19: APTT 36.5 H D/C Instructions Discharge Diet: No restrictions May shower in (days): 1 Weight Bearing Status: Weight bearing as tolerated Lifting Restricted to (Lbs): 20 Lifting Restrictions: Do not lift greater than 20 pounds for 3 weeks Call your doctor if your incision/area has: Sudden Increased Bleeding, Increased Pain/ Swelling and Foul Smelling Discharge Call your doctor if you observe: Fever of 101 or Higher and Uncontrolled pain Remove Dressing in: 1 day Additional Instructions: The access site on your left leg is covered with a dry dressing which you may remove tomorrow. The access site/incision is closed with 1 stitch which will remain in place until your appointment in the office next week. Once the dry dressing is removed, you may leave this open to air. You may shower tomorrow. Soap and water may rinse over the incision site, pat gently to dry. Do not submerge the incision site in water such as to take a bath, go swimming, etc. for 3 weeks. Do not lift greater than 20 pounds for 3 weeks. Otherwise activity especially walking is strongly encouraged and will be beneficial. As per physical therapy recommendation, please continue to use a walker as needed for safe walking. You have been restarted on Eliquis. For the next 7 days (until 05/02/2024) take Eliquis 10 mg by mouth twice daily. After 7 days, on 05/03/2024 then begin to take Eliquis 5 mg by mouth twice daily. If you have any questions or concerns about this, please contact the office at [phone]. Please also continue to take aspirin 81 mg daily. You have been prescribed oxycodone 10 mg to be taken by mouth every 8 hours as needed for pain. Please take this only as prescribed. Do not combine this with any other prescription pain medications. You may take this in addition to Tylenol and ibuprofen as needed. This medication can cause constipation, please continue to utilize stool softeners and/or MiraLAX as needed. Walking also helps to prevent constipation. You are scheduled for a follow-up appointment in the office on 05/02/2024 at 8:30 in the morning for suture removal. If you need to change his appointment please contact the office at [phone]. Please Follow Up With: Marely Whyte PA When: 05/02/24 at 8:30 AM Meaningful Use Info Meaningful Use Meaningful Use Diagnoses (Choose all that apply): VTE Ischemic Stroke Statin Dosing Therapy Reference: STATIN DOSE THERAPY REFERENCE: * Patients > 75 years receive moderate or high dose statin therapy. * Patients 75 years or YOUNGER should receive HIGH intensity statin dose unless contraindicated. You will be required to document reason for non-treatment if statin daily dose does not meet guidelines. HIGH DOSE STATIN THERAPY DAILY Atorvastatin > than or = to 40 mg Rosuvastatin > than or = to 20 mg Amlodipine + Atorvastatin > than or = to 2.5/40 mg Ezetimibe + Simvastatin 10/80 mg Simvastatin 80mg VTE Anticoag overlap given w/in hospital stay or rx'd at dc?: Yes Pt receive overlap for 5 days?: Yes Discharge Plan Admission Admit Date/Time: 04/17/24 16:13 Attending Provider: Silvino Mar Primary Care Provider: Raheem Nguyen Instructions Additional Instructions / Restrictions: The access site on your left leg is covered with a dry dressing which you may remove tomorrow. The access site/incision is closed with 1 stitch which will remain in place until your appointment in the office next week. Once the dry dressing is removed, you may leave this open to air. You may shower tomorrow. Soap and water may rinse over the incision site, pat gently to dry. Do not submerge the incision site in water such as to take a bath, go swimming, etc. for 3 weeks. Do not lift greater than 20 pounds for 3 weeks. Otherwise activity especially walking is strongly encouraged and will be beneficial. As per physical therapy recommendation, please continue to use a walker as needed for safe walking. You have been restarted on Eliquis. For the next 7 days (until 05/02/2024) take Eliquis 10 mg by mouth twice daily. After 7 days, on 05/03/2024 then begin to take Eliquis 5 mg by mouth twice daily. If you have any questions or concerns about this, please contact the office at [phone]. Please also continue to take aspirin 81 mg daily. You have been prescribed oxycodone 10 mg to be taken by mouth every 8 hours as needed for pain. Please take this only as prescribed. Do not combine this with any other prescription pain medications. You may take this in addition to Tylenol and ibuprofen as needed. This medication can cause constipation, please continue to utilize stool softeners and/or MiraLAX as needed. Walking also helps to prevent constipation. You are scheduled for a follow-up appointment in the office on 05/02/2024 at 8:30 in the morning for suture removal. If you need to change his appointment please contact the office at [phone]. Discharge Orders/Prescriptions Prescriptions: New Eliquis 5 mg Tablet 10 mg PO BID Qty: 0 0RF Continued polyethylene glycol 3350 [Miralax] 17 gram/dose powder 4 g PO DAILY Qty: 238 1RF naproxen 250 mg tablet 250 mg PO Q8H PRN (Reason: pain) 5 Days Qty: 16 0RF oxycodone 5 mg tablet 10 mg PO TID PRN (Reason: pain) 3 Days Qty: 18 0RF albuterol sulfate 90 mcg/actuation HFA aerosol inhaler 2 puff INHALATION Q4H PRN paroxetine HCl 20 mg tablet 20 mg PO DAILY Eliquis DVT-PE Treat 30D Start 5 mg (74 tabs) tablets,dose pack 5 mg PO BID Qty: 74 0RF multivitamin [Daily Multi-Vitamin] Tablet 1 tab PO DAILY acetaminophen [Acetaminophen Extra Strength] 500 mg tablet 1,000 mg PO Q8H PRN (Reason: fever or pain) aspirin [Adult Aspirin Regimen] 81 mg tablet,delayed release (DR/EC) 81 mg PO DAILY Qty: 90 0RF No Action pantoprazole 40 mg tablet,delayed release (DR/EC) 40 mg PO DAILY Referrals / Follow Up: Raheem Nguyen MD [Primary Care Provider] - Disposition Disposition (needs filled in before D/C Order can be placed): Home, Self Care
--- NOTE | 2024-04-25 14:27 | CASEMGMT ---
Addendum entered by Jeevan Dawn 04/25/24 14:39: Order for DC placed. Back-up Eliquis trial card given just incase. Pt denies further needs. Pt RN updated. Original Note: Pt was recently seen by therapy. PT and OT are not recommending any additional therapy at time of DC. This RN CM to pt room at this time to discuss further DC planning. Pt states that he will be getting discharged this evening. At this time, the pt states that he feels safe returning home with his parents. Pt denies the need for HHC, OP Tx, SNF, CCN or pt Link. Pt states that his mom used to be a nurses aide and will be able to help care for him at home. Pt states that he has exercise equipment that he plans to utilize at home. Pt states that he has all of the DME that he needs at home already, including a FWW. Pt states that he has been on Eliquis before. Pt states that he was given a discount savings card by [employer] already. Pt denies any further questions or concerns from this RN CM and states that he is ready for DC home today.
--- NOTE | 2024-04-25 15:06 | CHAPLAIN ---
Type of Pastoral Visit ___ Initial Visit _x__ Follow-up Visit ___ On-call Visit ___ General Patient Visit ___ Spiritual Assessment ___ Family Conference ___ Bereavement ___ Rapid Response ___ Code Blue ___ Other (describe below) Pastoral Care Referral From _x__ Patient ___ Family ___ Nurse ___ Physician ___ Social Sciences Instructor ___ Website Optimization Strategist ___ Other (describe below) Sacrament/Intervention _x__ Active listening ___ Anointing ___ Methodist ___ Bereavement ___ Communion _x__ Mary exploration ___ ___ Life review _x__ Prayer ___ Reconciliation ___ Sacrament of Sick _x__ Supportive presence ___ Wedding ___ Other (describe below) Pastoral Comments follow up by request to patient; pt had procedure completed and hopes to be discharged later today; pt has been in the hospital for 8 days and has been reading his Bible and praying during this time; pt states that he is 'renewing his relationship and restarting a mary journey'; pt acknowledges changes in his life are needed and has sought affirmation and the time to talk through these concerns with the guitar maker; prayer and presence given in addition
[2024-04-25 15:43] VITALS: BP 154/98; PULSE 87; RESP 18; TEMP 36.3; O2SAT 100
== END 2024-04-25 16:30 | disposition home or self-care (01) | DRG 272 ==
LOC: PCU 04-23 14:00 → ICU 04-25 14:35 → PCU 04-29 09:46
PROVIDERS: Physician Assistant; Admitting Provider Surgery Trauma Surgery; PCP Family Medicine; Referring Provider Surgery Trauma Surgery; Visit Provider Surgery Trauma Surgery
DX: I82.422 Acute embolism and thrombosis of left iliac vein (principal); I82.412 Acute embolism and thrombosis of left femoral vein; F17.210 Nicotine dependence, cigarettes, uncomplicated; K21.9 Gastro-esophageal reflux disease without esophagitis; I82.432 Acute embolism and thrombosis of left popliteal vein; Z79.01 Long term (current) use of anticoagulants; Z79.82 Long term (current) use of aspirin; Z86.718 Personal history of other venous thrombosis and embolism; Z79.899 Other long term (current) drug therapy; Z86.16 Personal history of COVID-19
CPT/HCPCS: 36005; 36010; 36415; 37187; 37212; 37248; 37249; 37252; 37253; 75820; 75825; 76937; 80048; 80076; 85025; 85027; 85347; 85384; 85610; 85730; 93005; 94668; 97162; 97166; 97530; 97535; 99152; 99153; C1753; C1769; C1887; C1894; J2997; J7030; J7040; J7050; Q9967; A4216; C1725; C1757

== ENCOUNTER 2024-05-27 16:03 | Inpatient (IN) | payer OTHER, SELFPAY ==
[2024-05-27 16:01] VITALS: BP 166/100; PULSE 72; RESP 14; TEMP 36.7; O2SAT 99; BMI 31.5
--- NOTE | 2024-05-27 16:35 | PCM.HP.STD ---
HPI - General General Date of Admission: 05/27/24 HPI Narrative DHARMESH REGAN, is a 33 M who presents with recurrent deep venous thrombosis including failure of prior iliac vein stents that required mechanical thrombectomy and thrombolytic infusion approximately 4 weeks prior. The result of the prior procedure left some residual either subacute to chronic thrombus or intimal hyperplasia. Given the appearance of the vessels was felt that further stenting at that time had high likelihood of acute failure so has been maintained on anticoagulation with return now for repeat imaging and possible intervention of the residual stenotic segments. [facility] Medical History Left leg swelling Deep vein thrombosis (DVT) SOB (shortness of breath) on exertion Depression Anxiety GERD (gastroesophageal reflux disease) Home Medications ?Medication ?Instructions ?Recorded ?Last Taken ?Type aspirin 81 mg tablet,delayed 81 mg PO DAILY blood thinner #90 12/14/22 04/17/24 Rx release (Adult Aspirin Regimen) tabs albuterol sulfate 90 mcg/actuation 2 puff inhalation Q4H PRN SOB 04/13/24 04/16/24 History aerosol inhaler pantoprazole 40 mg tablet,delayed 40 mg PO DAILY stomach 04/13/24 04/17/24 History release apixaban 5 mg (74 tabs) tablets in 5 mg PO BID blood thinn #74 tabs 04/14/24 04/17/24 Rx a dose pack (Eliquis DVT-PE Treat 30D Start) acetaminophen 500 mg tablet 1,000 mg PO Q8H PRN fever or pain 04/17/24 04/16/24 History (Acetaminophen Extra Strength) multivitamin (Daily Multi-Vitamin 1 tab PO DAILY supplement 04/17/24 04/17/24 History tablet) naproxen 250 mg tablet 250 mg PO Q8H PRN PRN pain 05/27/24 Unknown History paroxetine HCl 30 mg tablet 30 mg PO DAILY depression 05/27/24 Unknown History Allergy/AdvReac Type Severity Reaction Status Date / Time cefaclor (From [facility]) Allergy Severe Swelling Verified 05/15/24 08:04 Penicillins Allergy Severe Rash Verified 05/15/24 08:04 amoxicillin AdvReac Severe Swelling Verified 05/15/24 08:04 Family History (Updated 05/15/24 @ 08:01 by Christine Flowers) Other Asthma Diabetes Hypertension Surgical History Hx of brain surgery (~01/2002) Social History Smoking Status: Current every day smoker tobacco type: cigarettes ROS Constitutional Constitutional: Denies chills, fever(s), frequent falls, lethargy or weakness Eyes Eyes: Denies blind spots, change in vision or loss of vision ENT HEENT: Denies bleeding gums, hoarseness or sore throat Cardiovascular Cardiovascular: Denies abdominal pain, bluish discoloration of hand/feet, chest pain with activity, claudication, cold extremities, cyanosis, dyspnea on exertion, erythema on extremities, irregular heart rhythm, leg edema, leg ulcers, numbness in extremities or weakness in extremities Respiratory/Chest Respiratory/Chest: Denies cough, excessive phlegm production, shortness of breath at rest, shortness of breath with exertion or wheezing Gastrointestinal Gastrointestinal: Denies anorexia, change in stool character, constipation, diarrhea, melena or rectal bleeding Genitourinary Genitourinary: Denies dysuria or hematuria Musculoskeletal Musculoskeletal: Denies abnormal gait Integumentary Integumentary: Reports other Details: ; Denies erythema, non-healing lesions or wounds Neurologic Neurologic: Denies abnormal speech, focal weakness, headache(s), loss of vision, numbness, paresthesias or sensory deficit Hematologic/Lymphatic Hematologic/Lymphatic: Denies easy bleeding, easy bruising or lymphadenopathy Vital Signs Vital Signs Vital Signs: Weight Weight: 279 lb 12.266 oz Body Mass Index (BMI) 31.5 Physical Exam Const alert, oriented x3, no apparent distress and healthy appearing General Appearance: cooperative; Negative for combative or lethargic Orientation / Consciousness: awake Exam Limitations: no limitations HEENT Head and Scalp: normocephalic and atraumatic Eyes EOMs intact bilaterally General Eye: normal appearance of both eyes Neck full ROM General: trachea midline Resp normal respiratory effort and no use of accessory muscles Effort and Inspection: Negative for labored, stridor or audible wheezes Cardio regular rate and regular rhythm Back/Spine Cervical Spine: cervical ROM normal Extremity full ROM, normal capillary refill and no clubbing, cyanosis or edema Skin no rashes or lesions noted and no wounds Neuro oriented x3, CN's II-XII intact bilaterally, no focal motor deficits and no sensory deficits noted Psych thought process normal, cooperative, affect normal, speech normal and activity/motor behavior normal Assessment & Plan Assessment/Plan (1) Deep vein thrombosis (DVT): QUALIFIERS: DVT location: lower extremity Affected thrombotic vein of extremity: iliac Chronicity: acute Laterality: left Qualified Code(s): I82.422 - Acute embolism and thrombosis of left iliac vein PLAN: -Hold Eliquis, initiate heparin drip -Venogram with possible thrombectomy under general anesthesia scheduled for 05/28 -N.p.o. at midnight Charges/Coding Visit Charges Inpatient E&M: 15012 Init Hosp L2
[2024-05-27 18:30] LABS: Partial Thromboplast Time 24.9 Seconds (24.1-36.2)
[2024-05-27] MEDS: HEPARIN/D5w 25,000 UNITS 25,000 UNITS/250 ML IV.SOLN. 10 UNITS CONT INF (18:46)
[2024-05-27] MEDS: 0.9% Saline Lock 10 ML Syringe IV (18:48)
[2024-05-27] MEDS: Acetaminophen 500 MG Tablet 1000 MG PO (20:17)
[2024-05-27 20:40] VITALS: O2SAT 98
[2024-05-27 21:00] VITALS: BP 150/81; PULSE 78; RESP 12; TEMP 36.7; O2SAT 98
[2024-05-28] VITALS (16 sets, daily range): BP systolic 137–166; BP diastolic 85–96; PULSE 60–88; RESP 10–20; TEMP 35.9–36.8; O2SAT 95–100; BMI 30.6
[2024-05-28 00:46] LABS: Partial Thromboplast Time 26.4 Seconds (24.1-36.2)
[2024-05-28] MEDS: Aspirin E.C. 81 MG Tablet PO (06:13)
[2024-05-28 07:14] LABS: Partial Thromboplast Time 27.8 Seconds (24.1-36.2)
[2024-05-28] MEDS: Heparin Injection (Vial) 5,000 UNIT/ML VIAL IV (07:52)
[2024-05-28 08:13] LABS: Absolute Lymphocyte Count 2.34 X10^3/uL (0.83-4.51); Absolute Neutrophil Count 2.2 X10^3/uL (2.0-7.7); Basophil# 0.05 X10^3/uL; Basophil% 0.9 % (0-1); Eosinophil# 0.39 X10^3/uL; Eosinophils% 6.9 % (0-5); Hematocrit 41.3 % (40-54); Hemoglobin 13.7 g/dL (13.0-16.5); Lymphocyte # 2.34 X10^3/ul (0.83-4.51); Lymphocyte % 41.1 % (19-41); Mean Corp Hgb Conc 33.2 g/dL (32-36); Mean Corpuscular Hgb 31.9 pg (27.0-32.0); Monocyte# 0.65 X10^3/uL; Monocyte% 11.4 % (0-10); NRBC Flagged by Analyzer 0 % (0-5); Neutrophil # 2.23 X10^3/uL (2.7-7.7); Neutrophil % 39.2 % (47-70); Platelet Count 193 K/mm3 (150-450); RBC Distribution Width CV 13.5 % (11.6-14.6); RBC Distribution Width SD 47.8 fl (35.1-43.9); White Blood Count 5.7 K/mm3 (4.4-11.0)
[2024-05-28 08:36] LABS: Anion Gap 8 (5-15); BUN 12 mg/dL (7-18); BUN/Creat Ratio 15.6 RATIO (10-20); Calcium,Total 9.1 mg/dL (8.5-10.1); Chloride 109 mmol/L (98-107); Creatinine, Serum 0.77 mg/dL (0.70-1.30); EST Glomerular Filtration Rate 123 mL/min (>60); Est Glom Filt Rate - Afr Amer 149 mL/min (>60); Estimated Creatinine Clearance 203.62 ml/min; Glucose 95 mg/dL (74-106); Sodium Level 140 mmol/L (136-145)
--- NOTE | 2024-05-28 09:49 | PRE.ANES_ITS ---
ASA Classification* ASA Classification ASA Classification: 2 Assessment & Plan Anesthesia* Anesthesia Assessment Anesthesia Assessment: Discussed sedation and/or anesthesia options, risks, benefits, and alternatives with patient/parents/legal guardian/POA. Questions invited. The patient/parents/legal guardian/POA seems to understand and agrees to proceed with anesthesia plan. Reviewed the physical assessment, medical history, allergy history and patient home medications list prior to surgery/procedure/anesthetic and documented any changes. Performed airway and anesthesia risk assessments. Anesthesia Type Anesthesia Type: General Anesthesia Focused Assessment* Temperature: 98.3 F Pulse Rate: 64 Blood Pressure: 166/96 Respiratory Rate: 15 Pulse Ox: 97 Airway Assessment Mouth opens: >3 cm Mallampati Score: II Focused Labs Anesthesia Preop lab: CBC WBC 5.7 K/mm3 (4.4-11.0) 05/28/24 08:07 RBC 4.30 M/mm3 (4.6-6.2) L 05/28/24 08:07 Hgb 13.7 g/dL (13.0-16.5) 05/28/24 08:07 Hct 41.3 % (40-54) 05/28/24 08:07 Plt Count 193 K/mm3 (150-450) 05/28/24 08:07 CHEMISTRY Potassium 4.0 mmol/L (3.5-5.1) 05/28/24 08:07 Sodium 140 mmol/L (136-145) 05/28/24 08:07 BUN 12 mg/dL (7-18) 05/28/24 08:07 Creatinine 0.77 mg/dL (0.70-1.30) 05/28/24 08:07 Glucose 95 mg/dL (74-106) 05/28/24 08:07 TSH 0.62 uIU/mL (0.358-3.74) 06/24/21 16:54 COAG PT 13.8 SECONDS (11.7-14.9) 04/22/24 05:53 Pre-Assessment Diagnosis/Proposed Procedure Planned Operative Procedure(s): venogram Anesthesia History Anesthesia History - background investigator: Anesthesia History - background investigator Hx Hospitalization Any Problems With Anesthesia Cholinesterase deficiency You/Your Family Experience fever (hyperthermia) with Relationship Recent Exposure to Contagious Disease Does patient have nerve stimulator Patient instructed to have device shut off --Does patient have Pacemaker or ICD? When Was Last Pacemaker Check QUESTION #4 FULL TEXT: You/Your Family Experience fever (hyperthermia) with Anesthesia Last Oral Intake Last Oral intake: Last Oral Intake NPO since Meds taken in AM with sips of water? Meds patient instructed to take am of surgery PONV PONV - background investigator: PONV - background investigator Female HX of Motion Sickness HX of N/V After Surgery Non-Smoker Duration of Surgery greater than 60 minutes Number of Risk Factors PONV Score Height & Weight Height & Weight: Anesthesia: Height & Weight Height 6 ft 7 in 05/27/24 16:01 Weight: 123.2 kg 05/28/24 06:00 Body Mass Index (BMI) 30.6 05/28/24 06:00 Respiratory Assessment Respiratory Assessment - background investigator: Respiratory Tract Infection Hx - background investigator Hx Respiratory Tract Infection STOP Sleep Apnea STOP Sleep Apnea - background investigator: STOP Sleep Apnea - background investigator Hx Hypertension No 05/27/24 16:01 Hx Sleep Apnea Yes 05/27/24 16:01 CPAP No 05/27/24 16:01 BIPAP No 05/27/24 16:01 Do you snore loudly (louder than talking or can be heard Do you often feel tired/ fatigued/ sleepy during daytime? Has anyone observed you stop breathing during sleep? STOP Results Positive 05/27/24 16:01 QUESTION #5 FULL TEXT : Do you snore loudly (louder than talking or can be heard through closed doors)? 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 Specify any problems Hx of Preganancy in last 3 N/A 10/08/24 16:01 Months Nurse Filling Out Transfusion NBILANCIN 05/27/24 16:01 & Questions: Date: 05/27/24 05/27/24 16:01 Time: 16:04 05/27/24 16:01 Patient unable to answer at this time (ie. confused, unrespo /Reproduction History /Reproductive History - background investigator: /Reproductive Hx- background investigator Hx Now Gestational Age (in weeks): EDC: Hx Hx Para Hx Section SAB Active Medications Active Medications: Current Medications Generic Name Dose Route Start Last Admin Trade Name Freq PRN Reason Stop Dose Admin Acetaminophen 1,000 mg 05/27/24 22:00 05/28/24 06:13 Acetaminophen 500 Mg Tablet PO Not Given Q8 BRENDAN Al Hydroxide/Mg Hydroxide 30 ml 05/27/24 16:56 Mag Hydrox/Al Hydrox/Simeth 30 Ml Udc PO Q6H PRN PRN Gastric Burning Albuterol Sulfate 2.5 mg 05/27/24 16:56 Albuterol 2.5 Mg/3 Ml Vial.Neb. INHALATION Q2H PRN PRN SOB &/OR WHEEZING Aspirin 81 mg 05/28/24 08:00 05/28/24 06:13 Aspirin E.C. 81 Mg Tablet PO 81 mg DAILYCM BRENDAN Administration Docusate Sodium 100 mg 05/27/24 16:56 Docusate Sodium 100 Mg Capsule PO BID PRN PRN Constipation Guaifenesin 20 ml 05/27/24 16:56 Guaifenesin 10 Ml Udc (200mg/10ml) PO Q4H PRN PRN COUGH Heparin Sodium (Porcine) 0 unit 05/27/24 17:10 05/28/24 07:52 Heparin Injection (Vial) 5,000 Unit/Ml Vial IV 1,000 unit UD PRN Administration dose adjustment Protocol Sodium Chloride 100 mls @ 15 mls/hr 05/27/24 16:15 IV .Q6H40M PRN Saline Flush Heparin Sodium/Dextrose 25,000 units in 250 mls @ 10 mls/hr 05/27/24 16:56 05/28/24 07:52 CONT INF 1,400 units/hr .Q25H BRENDAN 14 mls/hr Titration Protocol As Directed Lactated Ringer's 1,000 mls @ 15 mls/hr 05/28/24 09:30 IV .Q48H BRENDAN Influenza Virus Vaccine 45 mcg 05/28/24 10:00 Flu Vacc (6mos Up)/Pf 45 Mcg/0.5 Ml Syringe IM 05/28/24 10:01 .ONCE ONE Ondansetron HCl 4 mg 05/27/24 16:56 Ondansetron 4 Mg/2 Ml Vial IV Q8H PRN PRN NAUSEA/VOMITING Oxycodone HCl 5 mg 05/27/24 16:56 Oxycodone 5 Mg Tablet PO Q4H PRN PRN Pain Score 4-10 Pantoprazole Sodium 40 mg 05/28/24 10:00 Pantoprazole Sodium 40 Mg Tablet PO DAILY [facility] Paroxetine HCl 30 mg 05/28/24 10:00 Paroxetine 10 Mg Tablet PO DAILY [facility] Sodium Chloride 10 - 40 ml 05/27/24 16:09 05/27/24 18:48 0.9% Saline Lock 10 Ml Syringe IV 10 ml UD PRN Administration SALINE FLUSH Sodium Chloride 10 - 40 ml 05/27/24 16:15 0.9% Saline Lock 10 Ml Syringe IV UD PRN SALINE FLUSH Throat Lozenges 1 lozenge 05/27/24 16:56 Benzocaine/Menthol 1 Lozenge MUCOUS MEM Q2H PRN PRN SORE THROAT PFSH Medical History Left leg swelling Deep vein thrombosis (DVT) SOB (shortness of breath) on exertion Depression Anxiety GERD (gastroesophageal reflux disease) Home Medications ?Medication ?Instructions ?Recorded ?Last Taken ?Type aspirin 81 mg tablet,delayed 81 mg PO DAILY blood thinner #90 12/14/22 04/17/24 Rx release (Adult Aspirin Regimen) tabs albuterol sulfate 90 mcg/actuation 2 puff inhalation Q4H PRN SOB 04/13/24 04/16/24 History aerosol inhaler pantoprazole 40 mg tablet,delayed 40 mg PO DAILY stomach 04/13/24 04/17/24 History release apixaban 5 mg (74 tabs) tablets in 5 mg PO BID blood thinn #74 tabs 04/14/24 04/17/24 Rx a dose pack (Eliquis DVT-PE Treat 30D Start) acetaminophen 500 mg tablet 1,000 mg PO Q8H PRN fever or pain 04/17/24 04/16/24 History (Acetaminophen Extra Strength) multivitamin (Daily Multi-Vitamin 1 tab PO DAILY supplement 04/17/24 04/17/24 History tablet) naproxen 250 mg tablet 250 mg PO Q8H PRN PRN pain 05/27/24 Unknown History paroxetine HCl 30 mg tablet 30 mg PO DAILY depression 05/27/24 Unknown History Allergy/AdvReac Type Severity Reaction Status Date / Time cefaclor (From [facility]) Allergy Severe Swelling Verified 05/15/24 08:04 Penicillins Allergy Severe Rash Verified 05/15/24 08:04 amoxicillin AdvReac Severe Swelling Verified 05/15/24 08:04 Family History (Updated 05/15/24 @ 08:01 by Christine Flowers) Other Asthma Diabetes Hypertension Surgical History Hx of brain surgery (~01/2002) Social History Smoking Status: Current every day smoker tobacco type: cigarettes Review of Systems (Anesthesia) ROS Narrative System reviewed and no additional complaints, except as documented.
[2024-05-28 14:05] LABS: ACT Activated Clotting Time 201 sec (74-137)
[2024-05-28 14:05] LABS: ACT Activated Clotting Time 195 sec (74-137)
[2024-05-28 14:05] LABS: ACT Activated Clotting Time 189 sec (74-137)
--- NOTE | 2024-05-28 16:14 | CASEMGMT ---
RN CM to room to complete initial assessment. Pt is still out of room. RN CM to attempt to complete assessment at a later time. Kenroy BSN RN CM
--- NOTE | 2024-05-28 16:22 | PCM.CONS.GEN ---
Assessment & Plan Assessment/Plan (1) Aftercare following surgery of the circulatory system: (2) Deep vein thrombosis (DVT): QUALIFIERS: Affected thrombotic vein of extremity: iliac Chronicity: acute DVT location: lower extremity Laterality: left Qualified Code(s): I82.422 - Acute embolism and thrombosis of left iliac vein (3) Left leg swelling: (4) Obstruction of iliac vein: (5) Seizure-like activity: PLAN: Plan Original at PCU bed; after episode was transferred from the OR to ICU. Discussed case with vascular surgery was going to order head CT. Likely seizure-like activity secondary to anesthesia. Will monitor for now. If symptoms persist will consider EEG. Seizure precautions ordered. Vascular surgery to get duplex ultrasound post thrombectomy Vascular surgery to resume heparin drip postoperatively. Tobacco abuse Counseled Nicotine patch ordered Depression Positive continue Advance care planning: Discussed with patient and family advanced directives as well as CODE STATUS. Explained various CODE STATUS: FULL CODE, DNR CCA, DNR CCA with no intubation, and DNR CC- and what each meant. Patient elected to be a full code with CPR and intubation if warranted. Surrogate decision maker is mother and father. Order was placed. Time spent on discussion 16 minutes. Time spent in the patient's overall evaluation,decision-making process, review of diagnostic data, adjustment of management, discussion with other providers, nursing and ancillary staff involved in patient's care documentation, 50 minutes. 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 Reportedly patient was having some tonic clonic shaking of all 4 extremities while intubated for his thrombectomy. Decision was made to extubate patient later on. After extubation patient briefly had another episode of tonic clonic shaking activity. His bilateral pupils was noted to be dilated. [facility] Medical History Left leg swelling Deep vein thrombosis (DVT) SOB (shortness of breath) on exertion Depression Anxiety GERD (gastroesophageal reflux disease) Home Medications ?Medication ?Instructions ?Recorded ?Last Taken ?Type aspirin 81 mg tablet,delayed 81 mg PO DAILY blood thinner #90 12/14/22 04/17/24 Rx release (Adult Aspirin Regimen) tabs albuterol sulfate 90 mcg/actuation 2 puff inhalation Q4H PRN SOB 04/13/24 04/16/24 History aerosol inhaler pantoprazole 40 mg tablet,delayed 40 mg PO DAILY stomach 04/13/24 04/17/24 History release apixaban 5 mg (74 tabs) tablets in 5 mg PO BID blood thinn #74 tabs 04/14/24 04/17/24 Rx a dose pack (Eliquis DVT-PE Treat 30D Start) acetaminophen 500 mg tablet 1,000 mg PO Q8H PRN fever or pain 04/17/24 04/16/24 History (Acetaminophen Extra Strength) multivitamin (Daily Multi-Vitamin 1 tab PO DAILY supplement 04/17/24 04/17/24 History tablet) naproxen 250 mg tablet 250 mg PO Q8H PRN PRN pain 05/27/24 Unknown History paroxetine HCl 30 mg tablet 30 mg PO DAILY depression 05/27/24 Unknown History Allergy/AdvReac Type Severity Reaction Status Date / Time cefaclor (From [facility]) Allergy Severe Swelling Verified 05/15/24 08:04 Penicillins Allergy Severe Rash Verified 05/15/24 08:04 amoxicillin AdvReac Severe Swelling Verified 05/15/24 08:04 Family History Other Asthma Diabetes Hypertension Surgical History Hx of brain surgery (~01/2002) Social History Smoking Status: Current every day smoker tobacco type: cigarettes ROS ROS Narrative Pertinent positives and pertinent negatives as noted in HPI. All other systems were reviewed and are negative Physical Exam Narrative Physical exam: General: Well-nourished, well-developed. Head: Normocephalic, atraumatic, no tenderness Eyes: Vision is grossly intact. EOMI ENT, no trauma, moist mucous membranes, no rhinorrhea Neck: Dry dressing at right side of neck; tender. left side non tender CVS: Regular rate and rhythm. S1-S2 present. No murmur, gallop or rub. Respiratory : clear to auscultation bilaterally, chest wall nontender Abdomen: Soft, nontender, nondistended, normal bowel sounds, no masses : Deferred Back: Nontender, no CVA tenderness, no midline spinal tenderness, deformities, step-offs Extremities: Increase in calf size of left leg compared to right. Skin: Normal color, no trauma, abrasions Neuro: Alert, oriented, cranial nerves II through XII grossly intact. Psychiatry: Normal mood. Normal affect. Not depressed. Not anxious. Lab / Micro Data 05/28/24 18:26 05/28/24 18:26 Labs: Laboratory Results - last 24 hr 05/27/24 18:00: APTT 24.9 05/28/24 00:30: APTT 26.4 05/28/24 06:51: APTT 27.8 05/28/24 08:07: WBC 5.7, RBC 4.30 L, Hgb 13.7, Hct 41.3, MCV 96.0 H, MCH 31.9, MCHC 33.2, RDW Std Deviation 47.8 H, RDW Coeff of Neha 13.5, Plt Count 193, MPV 10.0, Immature Gran % (Auto) 0.500, Neut % (Auto) 39.2 L, Lymph % (Auto) 41.1 H, Starr % (Auto) 11.4 H, Eos % (Auto) 6.9 H, Baso % (Auto) 0.9, Absolute Neuts (auto) 2.2, Absolute Lymphs (auto) 2.34, Nucleated RBC % 0, Sodium 140, Potassium 4.0, Chloride 109 H, Carbon Dioxide 23.0, Anion Gap 8, BUN 12, Creatinine 0.77, Estim Creat Clear Calc 203.62, Est GFR (MDRD) Af Amer 149, Est GFR (MDRD) Non-Af 123, BUN/Creatinine Ratio 15.6, Glucose 95, Calcium 9.1 05/28/24 12:36: Activated Clotting Time 189 H 05/28/24 13:10: Activated Clotting Time 201 H 05/28/24 13:59: Activated Clotting Time 195 H Charges/Coding Visit Charges Inpatient E&M: 87212 Subs Hosp L3 Procedures Hospitalists Procedures: 69623 Advncd Care Plan 30 Min
--- NOTE | 2024-05-28 16:23 | CT_ITS ---
STUDY: CT BRAIN WITHOUT CONTRAST REASON FOR EXAM: Male, 33 years old. seizure RADIATION DOSAGE (If Supplied By Facility): CTDIvol = ( 44.99 ) mGy, DLP = ( 897.35 ) mGycm TECHNIQUE: Transaxial CT imaging of the brain was performed without administration of intravenous contrast material. Individualized dose optimization techniques were used for this CT. COMPARISON: No relevant priors. FINDINGS: Normal soft tissue structures. Normal calvarium. Normal size ventricles and extra-axial spaces for the patient''s age. Normal white matter tracts of the cerebral hemispheres. Normal basal ganglia and thalami. Normal brainstem. Normal cerebellum. There is no intracranial hemorrhage. There are no findings of an acute ischemic infarction. Mild mucosal thickening in the right ethmoid air cells. CT/Brain/Head without Contrast IMPRESSION: Normal unenhanced CT scan of the brain. MRI may be useful for further evaluation Electronically Signed: Rishi Varghese MD at 16:51 EDT ,
--- NOTE | 2024-05-28 16:33 | VDLE_ITS ---
Reason For Study: LLE Pain RIGHT LEFT CFV is compressible, spontaneous, phasic, GSV is normal. competent and demonstrates normal Unable to visualize prox CFV due to bandages. augmentation. CFV at SFJ is PARTIALLY COMPRESSIBLE with Procedure continuous flow noted. This is a venous duplex using B-mode, color Deep FV appears patent and shows phasic flow. flow and spectral Doppler. Acute deep vein thrombosis is noted in the Exam performed portable in ICU/CCU. FV. It is dilated and NONCOMPRESSIBLE. The exam was diagnostic. Acute deep vein thrombosis is noted in the A preliminary report was called and/or faxed POP V. It is dilated and NONCOMPRESSIBLE. to ICU vision rehabilitation therapist. Acute deep vein thrombosis is noted in the T/P Trunk. It is dilated and NONCOMPRESSIBLE. PTV is compressible. RT PerV is compressible. VL/Venous Duplex US, Unilateral Interpretation Summary Acute deep vein thrombosis is noted in the left femoral vein, popliteal vein, t ibioperoneal trunk vein. Ordering Physician: Silvino Mar Referring Physician: Raheem Nguyen Performed By: Ej Kim RVT
--- NOTE | 2024-05-28 16:35 | PCM.POST.ANE ---
Anesthesia: Postop Eval I Current Vital Signs Temperature: 97 F Pulse Rate: 78 Blood Pressure: 143/92 Respiratory Rate: 18 Pulse Ox: 99 Oxygen Delivery Method: Room Air Assessment Airway patent: Yes Spontaneous unlabored respirations: Yes Mental status: Awake and Calm nausea: No Vomiting: No Anesthesia Complication: No Fluid Hydration Crystalloid volume administer (ml): 1,000 Total IV fluid infused: 1,000 Progress Note Post-operative progress note: taken to CT scan by cook house laborer staff, then to go to ICU, Dr. Mar aware and Dr. Crane at bedside, see OR notes on events Anesthesia document: Postop Eval 1 completed: Yes
[2024-05-28 17:22] LABS: ACT Activated Clotting Time 208 sec (74-137)
--- NOTE | 2024-05-28 17:31 | PCM.OPRPT ---
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 Post-Operative Diagnosis: Same Surgery/Procedure Performed:: Venogram inferior vena cava Intravascular ultrasound of inferior vena cava, bilateral common iliac veins, bilateral external iliac veins Percutaneous mechanical thrombectomy of the left iliac vein stents and [place] iliac vein inferior to the stents Angioplasty stenting of the left common iliac vein at the superior aspect, and left external iliac vein inferior to the prior stents Surgeon: Silvino Mar Type of Anesthesia: General Estimated Blood Loss (mL): 170 Description of Procedure: HPI: Patient is a 33-year-old male with history of recurrent DVTs previously undergone IVC and bilateral iliac vein stenting. He presented with acute and subacute thrombosis approximately 6 weeks prior for which he underwent percutaneous mechanical thrombectomy. This did not yield a satisfactory result however the hope was that with anticoagulation in time we would have better opportunity to treat more chronic thrombus and potentially obtain a better outcome. He presents now for repeat venogram to assess the status of his left iliac vein stents. Description of procedure: Upon obtaining form consent and verification correct patient procedure site patient taken the [facility] where he was placed under general anesthesia. He is then positioned prepped and draped in usual sterile fashion a time was performed. Skin overlying the right internal jugular vein was anesthetized 1% lidocaine the vessel accessed with a micropuncture needle wire. This then exchanged for micropuncture sheath through which a Bentson wire was advanced into the inferior vena cava and the micropuncture sheath exchanged for an 8 Ecuadorean sheath. Through the 8 Ecuadorean sheath the Bentson wire was navigated into the right iliac vein stents and intravascular sound probe advanced recorded pullback performed of the right external and common iliac veins. This revealed some minimal in-stent hyperplasia causing less than 50% stenosis. Next the wires was withdrawn into the inferior vena cava and efforts were made to navigate into the left iliac vein stents. Despite multiple wire and catheter combinations were unable to successfully engage across the stent. Next skin overlying the left common femoral vein was Nestabs 1% lidocaine the vessel accessed under ultrasound guidance with micropuncture needle wire. There was significant friction when advancing the micropuncture wire but we up or successfully advance it into the distal external iliac vein. This was exchanged for micropuncture sheath through which hand-injection iliac venogram was performed which revealed total occlusion of the iliac vein with no contrast transiting into the stent and all contrast egress via multiple pelvic wall collaterals. We then advanced a J-wire through the micropuncture sheath exchanged for a short 8 Ecuadorean sheath and the patient was heparinized allowed to circulate for 3 minutes. Using the J-wire and angled quick cross catheter we engaged the occluded stents and ultimately were able to traverse the majority of the stent to successfully while appearing to remain within the lumen. The J-wire was then exchanged for a stiff Glidewire which was utilized along with the quick cross catheter to complete crossing of the stent. Intravascular ultrasound probe was then advanced over the wire and recorded pullback performed which revealed we are within true lumen of the stent until the very superior aspect where he appeared to cross the strut of the contralateral stent on his last strut. The wire was then withdrawn down to below this point and redirected and advanced in the intravascular shunt probe advanced through confirming position within true lumen of the left iliac stents throughout. In order to facilitate treatment of this occluded stent segment a snare was advanced via the IJ sheath and advanced into the inferior vena cava. There is then used to snare the Glidewire which was then withdrawn through the IJ sheath giving through and through wire access from the left femoral to the right IJ. Over the Glidewire a quick cross catheter was attempted to be advanced though we did not have sufficient wire length and support to enable this so the quick cross was withdrawn from the right IJ and the short 8 Ecuadorean sheath exchanged for a long 8 Ecuadorean sheath which was advanced into the mid inferior vena cava. Next we were able to successfully advance the quick cross catheter traversing the entirety of the vessels and advance out the left femoral vein access sheath. The Glidewire was then exchanged for a Amplatz wire which was again advanced through and through the patient exiting through the left femoral vein sheath. This was then grasped with a hemostat and the right IJ 8 Ecuadorean sheath exchanged for the Inari Protrieve sheath. This was then positioned according the inferior vena cava and secured to the skin with silk suture. Next the length of the iliac vein stent occlusion was balloon angioplastied with 10 mm EverCross balloon inflated to nominal for multiple inflations and then deflated withdrawn. The left femoral 8 Ecuadorean sheath were then exchanged for the Inari ClotTriever sheath. The Inari rev core mechanical thrombectomy device was then advanced via the left femoral access sheath and deployed for multiple passes engaging and across the entire length of the iliac vein stent occlusion and in the [place] occluded iliac vein and inferior to the stents. Repeat venogram revealed significant improvement in flow lumen with some residual luminal irregularity so the device was then readvanced and engaged for multiple other passes. Was then withdrawn and venogram revealed significantly improved lumen with still some remnant irregularity. The Inari Flowtreiver catheter was then advanced and suction thrombectomy performed of the entirety of the length of the iliac vein stents. The FlowTeiever was then exchanged for an 18 Ecuadorean Cook sheath which was advanced over the wire and positioned below the stents. After this exchanged repeat imaging was performed which revealed significant improvement in luminal irregularity with only minimal portion of the left. This also did reveal that there was significant continued egress of contrast via pelvic wall collaterals and slowed contrast transit across the stents. Intravascular sound probe was then readvanced which revealed significant residual stenosis below the stented segment as well as in the top 4 cm of the stented segment at the very superior aspect. The entirety of the length of the stented segment was then treated with balloon angioplasty of both 14 mm and 16 mm Bard [place] balloons inflated nominal for multiple inflations and then deflated withdrawn. This revealed improvement in the lumen of the majority of the stented segment with still residual slow contrast transit. A 10 mm EverCross balloon was then utilized to balloon angioplasty the segment inferior to the stent and intravascular ultrasound was readvanced and recorded pullback performed. This again revealed satisfactory appearance of the majority of the length of the stents with only the superior aspect and inferior to the stent remaining stenotic. Further subtraction venogram images were obtained with reflux down into the profunda which revealed satisfactory common femoral and profundofemoral veins is inflow for the stented segment. Next a 14 x 80 Bard Venovo self-expanding stent was advanced in the position with satisfactory overlap on the inferior aspect of the stent completing stent covered down to the acetabulum. This then deployed and then postdilated with a 12 mm Bard [place] balloon. Next the intravascular ultrasound probe was advanced and the newly placed and was satisfactory in appearance with good wall apposition and no residual compression. The probe was then advanced to the superior aspect of the stents and the area of residual stenosis marked and a second Bard Venovo stent, 18 x 80 was advanced in the position deployed. This was then postdilated with a 16 mm angioplasty balloon. Repeat venogram revealed now satisfactory brisk contrast transit across the stented segment with no significant feeling of pelvic collaterals. Intravascular ultrasound probe was then advanced and recorded pullback performed of the entirety of the stented segment which revealed good stent wall apposition with no residual compression or stenosis and no extrusion of any thrombus through the stent struts. The probe also was advanced to the IJ sheath to confirm no thrombus retained within the the collection system. The left femoral wire was then withdrawn and a silk pursestring suture placed at the skin after which the sheath was withdrawn and manual pressure held for 5 minutes with satisfactory hemostasis noted. Next the Protreieve sheath was retracted and withdrawn and a silk pursestring suture placed at the puncture site followed by 10 minutes of manual pressure with satisfactory hemostasis noted. Patient was then awakened from anesthesia and during his emergence he had significant irregular activity which was indicative of possible seizure activity. This resolved spontaneously after a very brief period of time though he remained fairly sedate and was still intubated. With significant discussion with anesthesia regarding best approach to his airway and possible risk for seizure activity if that was in fact what this event was. After significant discussion we decided that extubation and neuroassessment was most appropriate next step with a reintubation should his mental status not be sufficient to maintain his airway. The patient was then extubated again with some form of tonic-clonic episode and significant hypertension though this resolved fairly briskly and his mental status was satisfactory with fairly immediate alert and oriented exam following commands and answer questions appropriately. It was very unclear what occurred but in order to be cautious the plan was to take the patient to CT scan to confirm no intracranial hemorrhage which would alter our anticoagulation plans. Postop he was then going to go to the intensive care unit for monitoring and further treatment as needed.
[2024-05-28] MEDS: HEPARIN/D5w 25,000 UNITS 25,000 UNITS/250 ML IV.SOLN. 14 UNITS CONT INF (18:12)
[2024-05-28 18:29] LABS: Hematocrit 39.9 % (40-54); Hemoglobin 13.3 g/dL (13.0-16.5); Mean Corp Hgb Conc 33.3 g/dL (32-36); Mean Corpuscular Volume 95.9 fL (80-94); Platelet Count 181 K/mm3 (150-450); RBC Distribution Width CV 13.6 % (11.6-14.6); RBC Distribution Width SD 47.8 fl (35.1-43.9); Red Blood Count 4.16 M/mm3 (4.6-6.2); White Blood Count 10.2 K/mm3 (4.4-11.0)
[2024-05-28 18:42] LABS: Anion Gap 8 (5-15); BUN 13 mg/dL (7-18); BUN/Creat Ratio 15.6 RATIO (10-20); Calcium,Total 9.2 mg/dL (8.5-10.1); Chloride 109 mmol/L (98-107); Creatinine, Serum 0.83 mg/dL (0.70-1.30); EST Glomerular Filtration Rate 112 mL/min (>60); Est Glom Filt Rate - Afr Amer 136 mL/min (>60); Glucose 106 mg/dL (74-106); Sodium Level 140 mmol/L (136-145)
[2024-05-28] MEDS: Acetaminophen 500 MG Tablet 1000 MG PO (20:12)
[2024-05-28 23:26] LABS: Partial Thromboplast Time 41.3 Seconds (24.1-36.2)
[2024-05-29] VITALS (12 sets, daily range): BP systolic 135–159; BP diastolic 60–88; PULSE 70–96; RESP 10–23; TEMP 36.3–37; O2SAT 95–98; BMI 29.7
--- NOTE | 2024-05-29 00:29 | NURSING ---
Drainage for dressing on right neck circled again, drainage is sanguineous and continues to grow outside of circled tiffany. Sandbag applied to right neck 2100. Dressing on right neck is saturated. Old dressing and gauze removed. New 4x4 and opsite applied at 2300. Sandbag placed back over site. Dressing clean, dry and intact at 0000.
[2024-05-29 05:51] LABS: Absolute Lymphocyte Count 1.57 X10^3/uL (0.83-4.51); Absolute Neutrophil Count 4.6 X10^3/uL (2.0-7.7); Basophil# 0.04 X10^3/uL; Basophil% 0.6 % (0-1); Eosinophil# 0.14 X10^3/uL; Eosinophils% 1.9 % (0-5); Hematocrit 37.8 % (40-54); Hemoglobin 12.5 g/dL (13.0-16.5); Lymphocyte # 1.57 X10^3/ul (0.83-4.51); Lymphocyte % 21.6 % (19-41); Mean Corp Hgb Conc 33.1 g/dL (32-36); Mean Corpuscular Hgb 32.1 pg (27.0-32.0); Mean Corpuscular Volume 96.9 fL (80-94); Mean Platelet Vol. 9.9 fl (6.2-12.0); Monocyte# 0.86 X10^3/uL; Monocyte% 11.8 % (0-10); NRBC Flagged by Analyzer 0 % (0-5); Neutrophil # 4.59 X10^3/uL (2.7-7.7); Neutrophil % 63.3 % (47-70); Platelet Count 173 K/mm3 (150-450); RBC Distribution Width CV 13.6 % (11.6-14.6); RBC Distribution Width SD 48.5 fl (35.1-43.9); White Blood Count 7.3 K/mm3 (4.4-11.0)
[2024-05-29 06:03] LABS: Partial Thromboplast Time 34.8 Seconds (24.1-36.2)
[2024-05-29 06:05] LABS: Anion Gap 7 (5-15); BUN 10 mg/dL (7-18); BUN/Creat Ratio 15.6 RATIO (10-20); Calcium,Total 8.9 mg/dL (8.5-10.1); Chloride 107 mmol/L (98-107); Creatinine, Serum 0.64 mg/dL (0.70-1.30); EST Glomerular Filtration Rate 152 mL/min (>60); Est Glom Filt Rate - Afr Amer 184 mL/min (>60); Estimated Creatinine Clearance 241.73 ml/min; Glucose 97 mg/dL (74-106); Potassium 3.8 mmol/L (3.5-5.1); Sodium Level 138 mmol/L (136-145)
[2024-05-29] MEDS: Heparin Injection (Vial) 5,000 UNIT/ML VIAL IV (06:21)
[2024-05-29] MEDS: Acetaminophen 500 MG Tablet 1000 MG PO (06:21)
[2024-05-29] MEDS: APIXABAN 2.5 MG TABLET (WCH) PO ×2 (09:29→11:00)
[2024-05-29] MEDS: PARoxetine 10 MG Tablet 30 MG PO (09:30)
[2024-05-29] MEDS: Pantoprazole Sodium 40 MG Tablet PO (09:30)
[2024-05-29] MEDS: Aspirin E.C. 81 MG Tablet PO (09:30)
--- NOTE | 2024-05-29 09:30 | CASEMGMT ---
RN?CM?WATCH CASE POLISHER?CM?to room to meet with patient for initial transition planning/care coordination?assessment.?RN?CM?introduced self and role at [facility].? Pt voices understanding and consents to?assessment?at this time.? Pt resting in bed in no distress at this time.? Pt is A/O at this time and answers all questions appropriately.?? Care providers, pharmacy, and demographics verified/updated at this time. PCP: Dr Raheem Nguyen Specialists: Dr Mar-vascular surgeon Preferred [facility]acy: [facility] Insurance: [employer] Prescription Benefit:? yes. Pt has a couple weeks left of Eliquis @ home and has Eliquis Savings cards @ home that he is going to try and use when he gets refills, stating he is not sure if he has ever used one before. LNOK: Parents, Saad, Irene Living Arrangements: Lives w/parents in ranch-style home w/ramp entrance (for his father). Independent. Works full-time. Transportation:?Pt, parents. DME: ? Denies using any DME and denies needs.? He states he does have access to the following, but does not use: W/C, forearm crutches, walker, recliner. HHC/SNF: No hx of either. No needs identified. Pt wishes to return home and states has no concerns with going home at time of discharge.? PLAN:??Home Kenroy BSN?RN?CM
--- NOTE | 2024-05-29 09:33 | DS.PCM_ITS ---
Providers Date of Admission: 05/28/24 Primary Care Physician: Dr. Raheem Nguyen MD Consultations 05/28/24 16:48 Consult: Hospitalist Routine Consulting Provider: John Quigley Reason for Consult: medical management EMERGENT Consult: No MD Notified: Yes Date Notified: 05/28/24 Time Notified: 16:48 Method of Notification: Verbal Reason For Visit: VENOGRAM LOWER EXTREMITY, LEFT Diagnosis Discharge Diagnosis (1) Deep vein thrombosis (DVT): Status: Acute Code(s): I82.409 - Acute embolism and thrombosis of unspecified deep veins of unspecified lower extremity Qualifiers: Affected thrombotic vein of extremity: iliac Chronicity: acute DVT location: lower extremity Laterality: left Qualified Code(s): I82.422 - Acute embolism and thrombosis of left iliac vein Plan: -successful thrombectomy -return to oral anticoagulation (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 Code(s): I87.1 - Compression of vein (3) Seizure-like activity: Status: Acute Code(s): R56.9 - Unspecified convulsions Medications at Discharge Home Medications aspirin 81 mg tablet,delayed release (Adult Aspirin Regimen) 81 mg PO DAILY blood thinner #90 tabs 12/14/22 albuterol sulfate 90 mcg/actuation aerosol inhaler 2 puff inhalation Q4H PRN SOB 04/13/24 pantoprazole 40 mg tablet,delayed release 40 mg PO DAILY stomach 04/13/24 apixaban 5 mg (74 tabs) tablets in a dose pack (Eliquis DVT-PE Treat 30D Start) 5 mg PO BID blood thinn #74 tabs 04/14/24 acetaminophen 500 mg tablet (Acetaminophen Extra Strength) 1,000 mg PO Q8H PRN fever or pain 04/17/24 multivitamin (Daily Multi-Vitamin tablet) 1 tab PO DAILY supplement 04/17/24 naproxen 250 mg tablet 250 mg PO Q8H PRN PRN pain 05/27/24 paroxetine HCl 30 mg tablet 30 mg PO DAILY depression 05/27/24 Hospital Course Operations - (Venogram, IVUS, thrombectomy, iliac vein stenting ) Summary of Care Provided Hospital Course: Mr. Gtz has a history of recurrent LLE DVT including thrombosis of prior iliac vein stents. He underwent thrombectomy approximately 6 weeks prior and returns now for repeat imaging to assess residual thrombus unable to be cleared at prior procedure. He was admitted 05/27 for heparin bridge and underwent venogram, thrombectomy of left iliac vein stents, additional angioplasty/stent of left common and external iliac vein stents 05/28. As he was awakening from anesthesia he had seizure like activity that resolved spontaneously. He had a CT head performed that was negative for intracranial hemorrhage. He was admitted to the ICU post op for close monitoring with no recurrence of symptoms. On POD # 1 he was transitioned back to [facility], ambulated without difficulty and felt prepared for discharge. On 05/29 he was discharged to home. Weight / BMI Weight Weight: 263 lb 14.4 oz Body Mass Index (BMI) 29.7 ABG / Lab / Microbiology Data 05/29/24 05:35 05/29/24 05:35 Laboratory: Laboratory Results - last 24 hr 05/28/24 12:36: Activated Clotting Time 189 H 05/28/24 13:10: Activated Clotting Time 201 H 05/28/24 13:59: Activated Clotting Time 195 H 05/28/24 14:41: Activated Clotting Time 208 H 05/28/24 18:26: WBC 10.2, RBC 4.16 L, Hgb 13.3, Hct 39.9 L, MCV 95.9 H, MCH 32.0, MCHC 33.3, RDW Std Deviation 47.8 H, RDW Coeff of Neha 13.6, Plt Count 181, MPV 10.0, Sodium 140, Potassium 4.0, Chloride 109 H, Carbon Dioxide 23.0, Anion Gap 8, BUN 13, Creatinine 0.83, Estim Creat Clear Calc 188.90, Est GFR (MDRD) Af Amer 136, Est GFR (MDRD) Non-Af 112, BUN/Creatinine Ratio 15.6, Glucose 106, Calcium 9.2 05/28/24 23:03: APTT 41.3 H 05/29/24 05:35: WBC 7.3, RBC 3.90 L, Hgb 12.5 L, Hct 37.8 L, MCV 96.9 H, MCH 32.1 H, MCHC 33.1, RDW Std Deviation 48.5 H, RDW Coeff of Neha 13.6, Plt Count 173, MPV 9.9, Immature Gran % (Auto) 0.800, Neut % (Auto) 63.3, Lymph % (Auto) 21.6, [place] % (Auto) 11.8 H, Eos % (Auto) 1.9, Baso % (Auto) 0.6, Absolute Neuts (auto) 4.6, Absolute Lymphs (auto) 1.57, Nucleated RBC % 0, APTT 34.8, Sodium 138, Potassium 3.8, Chloride 107, Carbon Dioxide 24.0, Anion Gap 7, BUN 10, C reatinine 0.64 L, Estim Creat Clear Calc 241.73, Est GFR (MDRD) Af Amer 184, Est GFR (MDRD) Non-Af 152, BUN/Creatinine Ratio 15.6, Glucose 97, Calcium 8.9 Radiography Diagnostic Testing: Radiology Impression Brain CT 05/28/24 16:23 IMPRESSION: Normal unenhanced CT scan of the brain. MRI may be useful for further evaluation Electronically Signed: Rishi Varghese MD at 16:51 EDT Reading Location ID and State: [facility] / [place] Tel , Service support , D/C Instructions Discharge Diet: No restrictions May shower in (days): 1 Lifting Restrictions: do not lift > 20 lbs for 14 days Additional Activity Instructions: do not submerge incisions for 14 days Call your doctor if your incision/area has: Sudden Increased Bleeding, Increased Pain/ Swelling, Increased Redness and Foul Smelling Discharge Remove Dressing in: 1 day Meaningful Use Info Meaningful Use Meaningful Use Diagnoses (Choose all that apply): VTE Ischemic Stroke Statin Dosing Therapy Reference: STATIN DOSE THERAPY REFERENCE: * Patients > 75 years receive moderate or high dose statin therapy. * Patients 75 years or YOUNGER should receive HIGH intensity statin dose unless contraindicated. You will be required to document reason for non-treatment if statin daily dose does not meet guidelines. HIGH DOSE STATIN THERAPY DAILY Atorvastatin > than or = to 40 mg Rosuvastatin > than or = to 20 mg Amlodipine + Atorvastatin > than or = to 2.5/40 mg Ezetimibe + Simvastatin 10/80 mg Simvastatin 80mg VTE Anticoag overlap given w/in hospital stay or rx'd at dc?: Yes Pt receive overlap for 5 days?: No Reason overlap not ordered, prescribed, or given for 5 days: Treatment Not Indicated (DOAC) Discharge Plan Admission Admit Date/Time: 05/28/24 16:23 Attending Provider: Silvino Mar Primary Care Provider: Raheem Nguyen Consulting Providers: Silvino Walton Discharge Orders/Prescriptions Prescriptions: Continued albuterol sulfate 90 mcg/actuation HFA aerosol inhaler 2 puff INHALATION Q4H PRN pantoprazole 40 mg tablet,delayed release (DR/EC) 40 mg PO DAILY Eliquis DVT-PE Treat 30D Start 5 mg (74 tabs) tablets,dose pack 5 mg PO BID Qty: 74 0RF multivitamin [Daily Multi-Vitamin] Tablet 1 tab PO DAILY acetaminophen [Acetaminophen Extra Strength] 500 mg tablet 1,000 mg PO Q8H PRN (Reason: fever or pain) naproxen 250 mg tablet 250 mg PO Q8H PRN PRN (Reason: pain) paroxetine HCl 30 mg tablet 30 mg PO DAILY aspirin [Adult Aspirin Regimen] 81 mg tablet,delayed release (DR/EC) 81 mg PO DAILY Qty: 90 0RF Referrals / Follow Up: Raheem Nguyen MD [Primary Care Provider] - Disposition Disposition (needs filled in before D/C Order can be placed): Home, Self Care
--- NOTE | 2024-05-29 09:34 | PCM.PN.SRG ---
Subjective Subjective Doing well this morning. No further seizure like events. Minimal pain, left leg feels good. Objective Data Objective Data A&O x 3, NAD RRR Resp non labored access sites soft, no hematomas mild LLE edema +DP/PT pulse bilateral Vital Signs: Vital Signs Temp Pulse Resp BP Pulse Ox O2 Del Method 98.6 F 76 16 144/83 H 97 Room Air 05/29/24 06:00 05/29/24 06:00 05/29/24 06:00 05/29/24 06:00 05/29/24 07:23 05/29/24 07:23 Oxygen Delivery Method Room Air Weight: 263 lb 14.399 oz Body Mass Index (BMI) 29.7 Intake & Output: Intake and Output for Last 24 Hours 05/27/24 05/28/24 05/29/24 23:59 23:59 23:59 Intake Total 1200 / 1200 626.07 / 626.07 280.5 / 280.5 Output Total 800 / 800 1150 / 1150 Balance 1200 / 1200 -173.93 / -173.93 -869.5 / -869.5 Lab / Micro Data 05/29/24 05:35 05/29/24 05:35 Labs: Laboratory Results - last 24 hr 05/28/24 12:36: Activated Clotting Time 189 H 05/28/24 13:10: Activated Clotting Time 201 H 05/28/24 13:59: Activated Clotting Time 195 H 05/28/24 14:41: Activated Clotting Time 208 H 05/28/24 18:26: WBC 10.2, RBC 4.16 L, Hgb 13.3, Hct 39.9 L, MCV 95.9 H, MCH 32.0, MCHC 33.3, RDW Std Deviation 47.8 H, RDW Coeff of Neha 13.6, Plt Count 181, MPV 10.0, Sodium 140, Potassium 4.0, Chloride 109 H, Carbon Dioxide 23.0, Anion Gap 8, BUN 13, Creatinine 0.83, Estim Creat Clear Calc 188.90, Est GFR (MDRD) Af Amer 136, Est GFR (MDRD) Non-Af 112, BUN/Creatinine Ratio 15.6, Glucose 106, Calcium 9.2 05/28/24 23:03: APTT 41.3 H 05/29/24 05:35: WBC 7.3, RBC 3.90 L, Hgb 12.5 L, Hct 37.8 L, MCV 96.9 H, MCH 32.1 H, MCHC 33.1, RDW Std Deviation 48.5 H, RDW Coeff of Neha 13.6, Plt Count 173, MPV 9.9, Immature Gran % (Auto) 0.800, Neut % (Auto) 63.3, Lymph % (Auto) 21.6, [place] % (Auto) 11.8 H, Eos % (Auto) 1.9, Baso % (Auto) 0.6, Absolute Neuts (auto) 4.6, Absolute Lymphs (auto) 1.57, Nucleated RBC % 0, APTT 34.8, Sodium 138, Potassium 3.8, Chloride 107, Carbon Dioxide 24.0, Anion Gap 7, BUN 10, Creatinine 0.64 L, Estim Creat Clear Calc 241.73, Est GFR (MDRD) Af Amer 184, Est GFR (MDRD) Non-Af 152, BUN/Creatinine Ratio 15.6, Glucose 97, Calcium 8.9 Radiography Diagnostic Testing: Radiology Impression Brain CT 05/28/24 16:23 IMPRESSION: Normal unenhanced CT scan of the brain. MRI may be useful for further evaluation Electronically Signed: Rishi Varghese MD at 16:51 EDT , Assessment & Plan Assessment/Plan (1) Deep vein thrombosis (DVT): QUALIFIERS: DVT location: lower extremity Affected thrombotic vein of extremity: iliac Chronicity: acute Laterality: left Qualified Code(s): I82.422 - Acute embolism and thrombosis of left iliac vein PLAN: -iliac stent thrombectomy and additional stents -resume Eliquis -unclear what the neuro events were at conclusion of anesthesia, but no recurrent, no focal deficits, not post-ictal -plan DC
[2024-05-29 10:34] LABS: Amphetamine Urine VISTA NEGATIVE (<1000 ng/mL); Barbiturate Urine VISTA NEGATIVE (< 200 ng/mL); Benzodiazepine Urine VISTA POSITIVE (< 200 ng/mL); Cocaine Urine VISTA NEGATIVE (< 300 ng/mL); Ecstacy Urine VISTA NEGATIVE (< 500 ng/mL); Methadone Urine VISTA NEGATIVE (< 300 ng/mL); PCP Urine VISTA NEGATIVE (< 25 ng/mL); THC Urine VISTA NEGATIVE (< 50 ng/mL); Vista UDS pH Range 8
[2024-05-29] MEDS: FLU VACC 2024-25(6MOS UP)/PF 45 MCG/0.5 ML SYRINGE IM (11:00)
--- NOTE | 2024-05-29 11:07 | PN.HOSP_ITS ---
Reason for Visit Reason for Visit: Diagnoses Acute embolism and thrombosis of left iliac vein (05/28/24) Compression of vein (05/28/24) Other specified soft tissue disorders (05/28/24) Unspecified convulsions (05/28/24) Encounter for surgical aftercare following surgery on the circulatory system (05/28/24) Subjective Subjective Feels well. No further events. Patient had shaking episode is coming off anesthesia but reportedly had no postictal period. Patient has never had seizure before. He states that he had an episode where he felt that he was having a seizure but was told that he was having hyperventilation syndrome. Asked if that was panic attack he stated that he was not told that specifically. Objective Data Objective Data Vital Signs: Vital Signs Temp Pulse Resp BP Pulse Ox O2 Del Method 36.3 C L 80 13 151/86 H 97 Room Air 05/29/24 09:00 05/29/24 09:00 05/29/24 09:00 05/29/24 09:00 05/29/24 09:00 05/29/24 09:00 Oxygen Delivery Method Room Air Weight: 119.703 kg Body Mass Index (BMI) 29.7 Intake & Output: Intake and Output for Last 24 Hours 05/27/24 05/28/24 05/29/24 23:59 23:59 23:59 Intake Total 1200 / 1200 626.07 / 626.07 353.93 / 353.93 Output Total 800 / 800 1150 / 1150 Balance 1200 / 1200 -173.93 / -173.93 -796.07 / -796.07 Lab / Micro Data 05/29/24 05:35 05/29/24 05:35 Labs: Laboratory Results - last 24 hr 05/28/24 12:36: Activated Clotting Time 189 H 05/28/24 13:10: Activated Clotting Time 201 H 05/28/24 13:59: Activated Clotting Time 195 H 05/28/24 14:41: Activated Clotting Time 208 H 05/28/24 18:26: WBC 10.2, RBC 4.16 L, Hgb 13.3, Hct 39.9 L, MCV 95.9 H, MCH 32.0, MCHC 33.3, RDW Std Deviation 47.8 H, RDW Coeff of Neha 13.6, Plt Count 181, MPV 10.0, Sodium 140, Potassium 4.0, Chloride 109 H, Carbon Dioxide 23.0, Anion Gap 8, BUN 13, Creatinine 0.83, Estim Creat Clear Calc 188.90, Est GFR (MDRD) Af Amer 136, Est GFR (MDRD) Non-Af 112, BUN/Creatinine Ratio 15.6, Glucose 106, Calcium 9.2 05/28/24 23:03: APTT 41.3 H 05/29/24 05:35: WBC 7.3, RBC 3.90 L, Hgb 12.5 L, Hct 37.8 L, MCV 96.9 H, MCH 32.1 H, MCHC 33.1, RDW Std Deviation 48.5 H, RDW Coeff of Neha 13.6, Plt Count 173, MPV 9.9, Immature Gran % (Auto) 0.800, Neut % (Auto) 63.3, Lymph % (Auto) 21.6, Traverse % (Auto) 11.8 H, Eos % (Auto) 1.9, Baso % (Auto) 0.6, Absolute Neuts (auto) 4.6, Absolute Lymphs (auto) 1.57, Nucleated RBC % 0, APTT 34.8, Sodium 138, Potassium 3.8, Chloride 107, Carbon Dioxide 24.0, Anion Gap 7, BUN 10, C reatinine 0.64 L, Estim Creat Clear Calc 241.73, Est GFR (MDRD) Af Amer 184, Est GFR (MDRD) Non-Af 152, BUN/Creatinine Ratio 15.6, Glucose 97, Calcium 8.9 05/29/24 10:05: Urine Opiates Screen NEGATIVE, Urine Methadone Screen NEGATIVE, Ur Barbiturates Screen NEGATIVE, Ur Phencyclidine Scrn NEGATIVE, Ur Amphetamines Screen NEGATIVE, MDMA (Ecstasy) Screen NEGATIVE, U Benzodiazepines Scrn POSITIVE H, Urine Cocaine Screen NEGATIVE, U Cannabinoids Screen NEGATIVE, Ur Drug Screen Comment Radiography Diagnostic Testing: Radiology Impression Brain CT 05/28/24 16:23 IMPRESSION: Normal unenhanced CT scan of the brain. MRI may be useful for further evaluation Electronically Signed: Rishi Varghese MD at 16:51 EDT , Physical Exam Narrative Up in chair. Afebrile. Const alert and no apparent distress Assessment & Plan Assessment/Plan (1) Seizure-like activity: PLAN: Reportedly this was while the patient was coming off anesthesia and the reportedly he had no postictal period. So this would seem less likely to be a seizure. 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 I do not feel is a seizure and do not feel warrants any additional workup. PLAN: Plan DVT: Status post iliac stent thrombectomy. Resume apixaban. Follow-up with vascular surgery. Medically stable for discharge. Will sign off. Please call with additional questions/concerns. Charges/Coding Visit Charges Inpatient E&M: [id number] [facility] [[email or web address]] Hosp L1
--- NOTE | 2024-05-29 14:45 | CHAPLAIN ---
Type of Pastoral Visit _x__ Initial Visit ___ Follow-up Visit ___ On-call Visit ___ General Patient Visit ___ Spiritual Assessment ___ Family Conference ___ Bereavement ___ Rapid Response ___ Code Blue ___ Other (describe below) Pastoral Care Referral From _x__ Patient ___ Family ___ Nurse ___ Physician ___ Credit Reporter ___ Animal Nutrition Consultant ___ Other (describe below) Sacrament/Intervention _x__ Active listening ___ Anointing ___ Methodist ___ Bereavement ___ Communion _x__ Mary exploration ___ ___ Life review _x__ Prayer ___ Reconciliation ___ Sacrament of Sick ___ Supportive presence ___ Wedding ___ Other (describe below) Pastoral Comments patient was seen recently in a previous admission and was given opportunity to review reason and outcome of this admission; pt is expecting to be discharged soon and is eating his lunch; pt welcomed industrial maintenance tech to sit with him and to review his thoughts and feelings about his health and his new focus on finding spiritual meaning through this and for his life; prayer is offered and pt asks for the joint reciting of The Lord's Prayer
== END 2024-05-29 12:55 | disposition home or self-care (01) | DRG 271 ==
LOC: PCU 05-28 09:56 → ICU 05-29 07:47
PROVIDERS: Admitting Provider Surgery Trauma Surgery; PCP Family Medicine; Referring Provider Surgery Trauma Surgery; Visit Provider Surgery Trauma Surgery
PROC: 06CD3ZZ Extirpation of Matter from Left Common Iliac Vein, Percutaneous Approach (ICD-10-PCS; principal; 2024-05-28 11:10)
DX: I82.422 Acute embolism and thrombosis of left iliac vein (principal); D68.2 Hereditary deficiency of other clotting factors; T82.856A Stenosis of peripheral vascular stent, initial encounter; I87.1 Compression of vein; R56.9 Unspecified convulsions; F32.A Depression, unspecified; K21.9 Gastro-esophageal reflux disease without esophagitis; F41.9 Anxiety disorder, unspecified; F17.210 Nicotine dependence, cigarettes, uncomplicated; Z79.01 Long term (current) use of anticoagulants; Z79.82 Long term (current) use of aspirin; Z86.718 Personal history of other venous thrombosis and embolism; Z23 Encounter for immunization; Y71.2 Prosthetic and other implants, materials and accessory cardiovascular devices associated with adverse incidents; Z79.899 Other long term (current) drug therapy; Z87.820 Personal history of traumatic brain injury
CPT/HCPCS: 36005; 36010; 36415; 37187; 37238; 37239; 37252; 37253; 70450; 75820; 75825; 76937; 80048; 80307; 85025; 85027; 85347; 85730; 90656; 93971; 94668; 97802; 99252; C1725; C1753; C1757; C1769; C1876; C1887; C1894; Q9967; A4216; C1773; G0463; J2405

== ENCOUNTER → 2024-06-23 | Outpatient (CLI) | payer OTHER, SELFPAY ==
--- NOTE | 2024-06-23 08:00 | AAVD_ITS ---
Reason For Study: HX LLE Stent Inferior Vena Cava Proximal inferior vena cava measures 1.58 x 1.54 cm. in the cross-sectional axis. Proximal inferior vena cava measures 1.60 cm. in the longitudinal axis. Mid inferior vena cava measures 1.64 x 1.82 cm. in the cross-sectional axis. Mid inferior vena cava measures 1.81 cm. in the longitudinal axis. Distal inferior vena cava measures 1.84 x 1.90 cm. in the cross-sectional axis. Distal inferior vena cava measures 1.80 cm. in the longitudinal axis. The inferior vena cava has spontaneous, phasic flow throughout. Left Common Iliac Vein Left common iliac vein measures 1.58 x 1.28 cm. in the cross-sectional axis. Left common iliac vein measures 1.37 cm. in the longitudinal axis. No flow visualized in LT CIV. Stent noted. Right Common Iliac Vein Right common iliac vein measures 1.73 x 1.82 cm. in the cross-sectional axis. Right common iliac vein measures 1.52 cm. in the longitudinal axis. Continuous flow noted in Rt CIV. Procedure Aorta IVC Iliac vasculature or bypass grafts 68004. The exam was diagnostic. Exam performed in department. Preliminary result given to Marely [facility]. VL/Abd Aortic/IVC Duplex scan Interpretation Summary Patent inferior vena cava with normal flow pattern. Occluded left iliac stent Right iliac stent patent with continuous flow Ordering Physician: Marely Whyte Referring Physician: Raheem Nguyen Performed By: Ej Kim, RVLeonardo
--- NOTE | 2024-06-23 08:00 | VDLE_ITS ---
Reason For Study: HX LLE DVT RIGHT LEFT CFV is compressible, spontaneous, phasic, GSV is normal. competent and demonstrates normal CFV is PARTIALLY COMPRESSIBLE mixed augmentation. intraluminal echoes. Finding is consistent Procedure with possible acute on chronic DVT This is a venous duplex using B-mode, color CFV at SFJ is PARTIALLY COMPRESSIBLE with flow and spectral Doppler. continuous flow noted. Exam performed in department. Deep FV appears patent and shows continuous The exam was diagnostic. flow. A preliminary report was called and/or faxed Acute on Chronic deep vein thrombosis is to [facility]. noted in the FV. It is dilated and Compare to study - 05/29/2024. NONCOMPRESSIBLE at prox and mid, continuous flow noted at Distal FV. Acute deep vein thrombosis is noted in the POP V. It is dilated and NONCOMPRESSIBLE. Acute deep vein thrombosis is noted in the T/P Trunk. It is dilated and NONCOMPRESSIBLE. PTV is NONCOMPRESSIBLE at prox and PARTIALLY COMPRESSIBLE at mid and dist. RT PerV is compressible. VL/Venous Duplex US, Unilateral Interpretation Summary Acute on chronic deep vein thrombosis noted in the left common femoral vein, fe moral vein. Acute deep vein thrombosis noted in the left popliteal vein, tibioperoneal trun k vein, posterior tibial vein. Ordering Physician: Marely Whyte Referring Physician: Raheem Nguyen Performed By: Ej Kim RVT
== END | disposition home or self-care (01) ==
LOC: CVS 07:46
PROVIDERS: PCP Family Medicine; Referring Provider Physician Assistant; Visit Provider Physician Assistant
DX: Z48.812 Encounter for surgical aftercare following surgery on the circulatory system (principal); I82.422 Acute embolism and thrombosis of left iliac vein; I87.1 Compression of vein
CPT/HCPCS: 93971; 93978

== ENCOUNTER → 2024-08-06 | Outpatient (CLI) | payer OTHER, SELFPAY | END | disposition home or self-care (01) | LOC: PSN 06:52 | PROVIDERS: PCP Family Medicine; Referring Provider Family Medicine; Visit Provider Family Medicine | DX: R06.02 Shortness of breath (principal) | CPT/HCPCS: 94060; 94726; 94729 ==

== ENCOUNTER → 2024-08-15 | Outpatient (CLI) | payer OTHER, SELFPAY ==
--- NOTE | 2024-08-15 13:41 | CT_ITS ---
STUDY: CT SOFT TISSUE NECK WITH CONTRAST REASON FOR EXAM: Male, 34 years old. Dyspnea/airway obstruction RADIATION DOSAGE (If Supplied By Facility): CTDIvol = ( 25.69 ) mGy, DLP = ( 968.75 ) mGycm TECHNIQUE: The patient was scanned in a multi-detector CT scanner. High resolution transaxial imaging was performed following intravenous administration of 75mL Isovue 370. Sagittal and coronal images were reconstructed. Individualized dose optimization techniques were used for this CT. The protocol utilizes one or more of the following dose reduction techniques: automated exposure control, adjustment of mA and/or kV according to patient size, and/or use of iterative reconstruction technique. COMPARISON: None. FINDINGS: Normal bilateral parotid glands. Normal bilateral hat marker spaces. Normal bilateral parapharyngeal spaces. Normal bilateral carotid spaces. Normal bilateral sublingual and submandibular glands and spaces. Normal visualized nasopharynx. Normal retropharyngeal space. Normal perivertebral space. Normal visualized bilateral faucial tonsils. The visualized tongue, tongue base and oropharynx are normal. The visualized cervical lymph nodes (levels I-) are within normal size limits, and maintain normal morphology. There is no demonstrated solid or cystic mass lesion. There is no abnormal contrast enhancement. Normal epiglottis, bilateral vallecula and hypopharynx. The pre-epiglottic and paraglottic adipose spaces are normal. Normal visualized bilateral piriform sinuses, aryepiglottic folds, vocal cords, and arytenoid-cricoid articulations. Normal subglottic trachea. Normal bilateral lobes of the thyroid gland. Normal visualized pulmonary apices. Normal visualized paranasal sinuses. Normal visualized cervical spine. CT/Soft Tissue Neck WITH Contrast IMPRESSION: Normal enhanced CT examination of the soft tissues of the neck. Electronically Signed: Bacilio Ambrose MD at 15:24 [facility] ,
== END | disposition home or self-care (01) ==
LOC: CT 13:38
PROVIDERS: PCP Family Medicine; Referring Provider Family Medicine; Visit Provider Family Medicine
DX: R06.00 Dyspnea, unspecified (principal); J98.8 Other specified respiratory disorders
CPT/HCPCS: 70491; Q9967

== ENCOUNTER → 2024-08-25 | Outpatient (CLI) | payer OTHER, SELFPAY ==
[2024-08-25 12:53] VITALS: PULSE 100; PULSE 103; PULSE 107; PULSE 110; PULSE 111; PULSE 113; PULSE 84; O2SAT 90; O2SAT 91; O2SAT 93; O2SAT 94; O2SAT 95; O2SAT 96; O2SAT 97
--- NOTE | 2024-09-01 13:02 | PCM.PSN.6M ---
PSN 6 Minute Walk Test 6 Minute Walk Test 6 Minute Walk Test: 6 Minute Walk Test PSN:6-Minute Walk Test Start: 08/25/24 12:53 Freq: Status: Active Protocol: [id number].6MINW Document 08/25/24 12:53 [facility] (Rec: 08/25/24 12:59 [facility] [id number]) 6 Minute Walk Test Date Performed 08/25/24 Time Performed 12:30 Height 6 ft 9 in Weight: 290 lb Weight in Pounds 290.[address]: Brooklynn Honeycutt ORAL SURGERY TECHNICIAN Assistive device used: None Pre-test Oxygen Delivery Method Room Air Pulse Ox (%) 96 Pulse Rate (60-100 beats/min) 100 Dyspnea Justin Scale (0-10) 2 Reported Symptoms Increased Work of Breathing 1st minute Oxygen Delivery Method Room Air Pulse Ox (%) 95 Pulse Rate (60-100 beats/min) 111 H Dyspnea Justin Scale (0-10) 3 Number of Rests Taken 0 Reported Symptoms Increased Work of Breathing 2nd minute Oxygen Delivery Method Room Air Pulse Ox (%) 93 Pulse Rate (60-100 beats/min) 111 H Dyspnea Justin Scale (0-10) 4 Number of Rests Taken 0 Reported Symptoms Increased Work of Breathing 3rd minute Oxygen Delivery Method Room Air Pulse Ox (%) 91 Pulse Rate (60-100 beats/min) 103 H Dyspnea Justin Scale (0-10) 4 Number of Rests Taken 0 Reported Symptoms Increased Work of Breathing 4th minute Oxygen Delivery Method Room Air Pulse Ox (%) 90 Pulse Rate (60-100 beats/min) 107 H Dyspnea Justin Scale (0-10) 5 Number of Rests Taken 1 Reported Symptoms Increased Work of Breathing 5th minute Oxygen Delivery Method Room Air Pulse Ox (%) 94 Pulse Rate (60-100 beats/min) 113 H Dyspnea Justin Scale (0-10) 5 Number of Rests Taken 0 Reported Symptoms Increased Work of Breathing 6th minute Oxygen Delivery Method Room Air Pulse Ox (%) 93 Pulse Rate (60-100 beats/min) 110 H Dyspnea Justin Scale (0-10) 5 Number of Rests Taken 0 Reported Symptoms Increased Work of Breathing Post-test Oxygen Delivery Method Room Air Pulse Ox (%) 97 Pulse Rate (60-100 beats/min) 84 Dyspnea Justin Scale (0-10) 2 Reported Symptoms Increased Work of Breathing Full Laps Walked 16 Partial Lap, Number of Tiles Walked 25 Total Distance Walked (ft) 969 Interpretation Interpretation: The patient ambulated 969 feet over the course of 6 minutes beginning on room air without assistive devices. Pretesting oxygen saturation was noted to be 96% on room air. With ambulation, the royce oxygen saturation was 90%. This represents a significant exertional oxygen desaturation, consistent with a pulmonary limitation to exercise tolerance. Recommendations Recommendations: There is no indication for the use of supplemental oxygen at this time. However, close interval follow-up is recommended, given the degree of oxygen desaturation noted during this study.
== END | disposition home or self-care (01) ==
LOC: PSN 12:18
PROVIDERS: PCP Family Medicine; Referring Provider Nurse Practitioner Acute Care; Visit Provider Nurse Practitioner Acute Care
DX: R06.02 Shortness of breath (principal)
CPT/HCPCS: 94618

== ENCOUNTER → 2024-09-06 | Outpatient (CLI) | payer OTHER, SELFPAY ==
--- NOTE | 2024-09-06 09:47 | CT_ITS ---
EXAM: CT CHEST WITHOUT INTRAVENOUS CONTRAST CLINICAL INDICATION: abnormal PDT suggesting airway obstruction TECHNIQUE: Helically acquired images were obtained of the chest without intravenous contrast. This CT exam was performed using one or more of the following dose reduction techniques: automated exposure control, adjustment of the mA and/or kV according to patient size, and/or use of iterative reconstruction technique. COMPARISON: No relevant prior studies available. FINDINGS: LUNGS AND PLEURAL SPACES: Unremarkable. No mass. No consolidation or edema. No pleural effusion or thickening. No pneumothorax. HEART: Unremarkable. Heart size is normal. No pericardial effusion. No significant coronary artery calcifications. MEDIASTINUM: Unremarkable. No mediastinal or hilar adenopathy. Esophagus is unremarkable. No hiatal hernia. THYROID: Unremarkable. No thyroid lesions. BONES/JOINTS: Unremarkable. No suspicious lytic or blastic abnormality. VASCULATURE: Unremarkable. Thoracic aorta is non-dilated. CT/Chest without Contrast IMPRESSION: Negative CT chest without intravenous contrast. Electronically Signed: Rich Alegria MD at 0:14 EST ,
== END | disposition home or self-care (01) ==
LOC: CT 09:45
PROVIDERS: PCP Family Medicine; Referring Provider Physician Assistant Medical; Visit Provider Physician Assistant Medical
DX: R94.2 Abnormal results of pulmonary function studies (principal)

== ENCOUNTER → 2024-10-22 | Outpatient (CLI) | payer OTHER, SELFPAY ==
[2024-10-22] MEDS: Zolpidem Tartrate 5 MG Tablet PO (21:30)
== END | disposition home or self-care (01) ==
LOC: SL 19:46
PROVIDERS: PCP Family Medicine; Referring Provider Nurse Practitioner Acute Care; Visit Provider Nurse Practitioner Acute Care
DX: G47.10 Hypersomnia, unspecified (principal)
CPT/HCPCS: 95810

== ENCOUNTER 2024-11-12 14:46 | Outpatient (RCR) | payer OTHER, SELFPAY ==
--- NOTE | 2024-11-13 09:32 | HP.SP.EV_ITS ---
Visit History Visit Info Date of Eval: 11/12/24 Visit: 1 Ambulance Driver Paramedic: RAYMOND Evans Attending Doctor: Referring Doctor: Reason for Referral: VOCAL CORD DYSFUNCTION/RX HERE Previous speech therapy: No Other Relevant Medical History/Diagnoses/Surgery: DHARMESH REGAN JR. is a 34 year old male who presents to Speech Therapy at [facility] for concerns for vocal cord dysfunction and laryngeal spasm. PMHx includes Factor V Lieden Mutation, deep vein thrombosis, GERD, alcohol abuse, current smoker. His parents live with him and they are also smokers. He has been to see Brooklynn Honeycutt NP with pulmonology on 08/19/2024. He participated in a PFT which revealed an airway obstruction along with respiratory flow-volume loop flattening on the inspiratory and expiratory limbs. Based on the report (in chart), he had a significant response to aerosolized bronchodilators. He had no evidence of COPD. He was referred to participate in a sleep study on 10/22/2024 which revealed severe obstructive sleep apnea. He has a second part to his sleep study this Sunday. Pt has not been to cardiology yet, however, ST suspects this may be a helpful consideration given his episodes are present throughout the day. He has a follow-up with Dr. Nguyen on December 04. Pt reporting that when he is SOB he feels like he is breathing through a straw. He initially stated that he felt like his chest was tight but after speaking with Dr. Nguyen about VCD symptoms, he thinks maybe the tightness is actually in his throat at times. An example he provided was that he could complete 10 min of yardwork then would need about 20 min. of rest inside the house. He stated he did this about 5x before giving up the yard work. Another example he provided included needing to be driven home from work in the middle of the work day d/t feeling lightheaded, tingly, and not being able to breathe. Has tried two inhalers and he reports that he does not notice much of a change. He has tried his father's nebulizer and he reports this seems to make a difference. Pt reporting he feels like his episodes are at the same frequency but worsening in their severity. Some compounding factors to his current symptoms are his work environment, alcohol intake and that his a current smoker. 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 He does not wear an N95 or a surgical mask because they are not required. Additionally, he would historically smoke 1.5-2 packs a day but has reduced it to about three-fourths pack a day. He has also cut down his drinking from 12 beers a day and 30 over the weekend to only drinking on the weekend with about 15-16 beers. Pt reporting he started drinking and smoking was he was between 11 and 12 years old. He shows understanding that participating in consumption of both of these may be having a negative effect on his breathing. Medications related to this diagnosis: Eliquis (5 mg, 2x/day), Men's multivitamin (1x/day), Pantoprazole (30 mg, 1x/day), Paroxetine (30 mg, 1x/day), low dose Aspirin (81 mg, 1x/day) Smoking Status: Current every day smoker Diagnosis Diagnosis: J38.5 Laryngeal spasm Pain Is pain an issue with your current prescribed condition?: No Personal Preferred language: Kiswahili Patient Allergies Allergies Allergies: [facility] Allergy (Severe, Verified 08/19/24 14:16) Swelling Penicillins Allergy (Severe, Verified 08/19/24 14:16) Rash swelling amoxicillin Adverse Reaction (Severe, Verified 08/19/24 14:16) Swelling Subjective Voice Intake Water (ounces): 128 Coffee (ounces): 0 Tea (ounces): 0 Soda (ounces): 12 Energy drinks (ounces): 0 Sports drinks (ounces): 0 Alcoholic Beverage Intake Intake: weekend (Sunday-Sun) Beer (ounces): 180 Objective Voice Observational Assessment Maximum Phonation Time in seconds: 9.3 Sustained /s/: averaging 17 seconds Sustained /z/: averaging 21 seconds Reference: Neuro-QoL instrument Radiation Oncology Patient Other Other Pursed Lip Breathing: -: During his session, Pt starting to demonstrate heavier, more labored breathing during the vocal task portion of the assessment (after talking about history for about 20 minutes). When asked how he was doing, Pt reporting he was feeling tingly. He was also visibly starting to tremor in his upper extremities. ST ended the vocal tasks and coached Pt through pursed lip breathing. He completed five rounds of the breathing exercise. He reported the tingly feeling was gone and the tremors also ceased. Continued with a break from vocal tasks for about five minutes before returning. He was then able to complete them and stated he felt okay. Vocal Hygiene: -: ST provided education on vocal hygiene including factors that are healthy for his voice such as drinking water, not yelling, singing without pus salvador too hard, wearing a mask at work to protect from dust irritants, and eating a healthy diet (Pt has a hx of GERD). Also discussed other behaviors that are more damaging such as smoking and drinking. A handout for his review was provided. Recommended when he was at work to walk over to someone if he wants to talk to them vs. yelling across the room while the loud machines are going. Also encouraged Pt to wear a surgical mask while he was at work to help reduce the amount of dust he is inhaling. He reports that he tried to wear an N95 but that it did not fit him well. Reinforced the surgical mask. Pt reporting that he does feel reflux spilling up into his throat. In future tx sessions, will discuss GERD precautions as well as recommend consult from instructional aide to problem solve. May also consider nasoendoscopy with ENT to investigate presence of laryngopharyngeal reflux which could also be an irritant causing these suspected laryngospasms. Qualitative Observations: -: Throughout the evaluation, observed Pt with throat clearing (about 5-6x in an hour). He reports having a copious amount of mucous draining from his nose in the morning and then throughout the day it feels like there is mucous or stuff stuck in his throat. Pt also reporting when he is able to expectorate the sputum it is a brown color. This chronic throat clearing to clear the mucous could also be causing inflammation and irritation on his vocal folds. Plan Plan Plan: Will recommend Pt for skilled outpatient speech therapy to address deficits in vocal function characterized by vocal cord dysfunction symptoms however a formal diagnosis is yet to be determined. Pt would benefit from training in identifying instances of vocal abuse, providing vocal hygiene solutions, training in diaphragmatic breathing, relaxation techniques, and direct education re: vocal health. Without skilled speech therapy Pt is at risk for pulmonary distress in a variety of social situations. Recommendations Treatment Warranted: Yes Treatment Warranted: Voice Comment: CONSULTS: - BANDAGE MAKER (for GERD management) - ENT (nasoendoscopy d/t suspected LPR) Progress Prognosis: Excellent Frequency Frequency: 1x/Week Duration: 2 Months Goals that are Established Determination:: Goals will be added/modified as deemed necessary and appropriate. Therapy will be discontinued when results of re-evaluation indicate therapy is no longer needed or lack of progress has been documented. Goal #1-5 Goal #1: Dharmesh will establish volitional control of respiration evidenced by utilization of diaphragmatic breathing during lying down, seated tasks, and in moments of SOB within 4 sessions with 100% accuracy independently. Goal #2: Dharmesh will establish volitional control of respiration evidenced by utilization of rescue breathing during structured tasks within 4 sessions with 100% accuracy independently. Goal #3: Dharmesh will establish volitional control of respiration evidenced by utilization of pursed lip breathing during structured tasks within 4 sessions with 100% accuracy independently. Goal #4: Dharmesh will show understanding of vocal abuse and current environmental factors that are affecting vocal hygiene via listing at least 5 abuse/behaviors to change within 2 sessions with 100% accuracy independently. Education Patient has Indicated that the Following Identified Educational Needs: None The Patient has indicated that they have no educational or learning abilities that may effect their care.: Yes Patient Instruction Patient Education: Diagnosis, Treatment Plan, Goals and Safety Precautions Person Taught: Patient Teaching Method: Discussion, Demonstration and Handout
--- NOTE | 2024-12-10 11:43 | HP.SP.DC_ITS ---
ST Discharge Summary Discharged: Discharge: DHARMESH REGAN is a 34 year old male who presented to [facility] on 11/12/24 following a dx of suspect vocal cord dysfunction. Pt attended initial evaluation with goals created to target education re: vocal hygiene, rescue breathing, and diaphragmatic breathing. After evaluation, all three follow up visits were canceled by Pt. They have not been rescheduled. Pt being discharged from speech therapy caseload on this date 12/10/24 d/t Pt absence in attending additional treatment visits. Thank you for allowing me to participate in the care of your patient. Will reevaluate at Pt?s request following script from physician.
== END 2024-11-12 19:00 | disposition home or self-care (01) ==
LOC: SP 14:46
PROVIDERS: PCP Family Medicine; Referring Provider Family Medicine; Visit Provider Family Medicine
DX: J38.3 Other diseases of vocal cords (principal)
CPT/HCPCS: 92524

== ENCOUNTER → 2024-11-14 | Outpatient (CLI) | payer OTHER, SELFPAY ==
[2024-11-14] MEDS: Zolpidem Tartrate 5 MG Tablet PO (21:24)
== END | disposition home or self-care (01) ==
LOC: SL 19:56
PROVIDERS: PCP Family Medicine; Referring Provider Nurse Practitioner Acute Care; Visit Provider Nurse Practitioner Acute Care
DX: G47.33 Obstructive sleep apnea (adult) (pediatric) (principal)
CPT/HCPCS: 95811

== ENCOUNTER → 2024-11-28 | Outpatient (CLI) | payer OTHER, SELFPAY ==
--- NOTE | 2024-11-28 09:35 | AAVD_ITS ---
Reason For Study Reason For Study: HX Iliaic Vein Stents Inferior Vena Cava Proximal inferior vena cava measures 1.33 x 1.97 cm. in the cross-sectional axis. Proximal inferior vena cava measures 0.86 cm. in the longitudinal axis. Mid inferior vena cava measures 1.23 x 1.47 cm. in the cross-sectional axis. Mid inferior vena cava measures 1.40 cm. in the longitudinal axis. Distal inferior vena cava measures 1.54 x 1.83 cm. in the cross-sectional axis. Distal inferior vena cava measures 1.47 cm. in the longitudinal axis. The inferior vena cava has spontaneous, phasic flow throughout. Left Common Iliac Vein Left common iliac vein measures 1.53 x 1.53 cm. in the cross-sectional axis. Left common iliac vein measures 1.58 cm. in the longitudinal axis. Unable to visualize flow in LT CIV. Stent Noted. Right Common Iliac Vein Right common iliac vein measures 1.54 x 1.47 cm. in the cross-sectional axis. Right common iliac vein measures 1.50 cm. in the longitudinal axis. The right common iliac vein has spontaneous, phasic flow throughout. Stent Noted. Procedure Aorta IVC Iliac vasculature or bypass grafts 35092. The exam was diagnostic. Exam performed in department. VL/Abd Aortic/IVC Duplex scan Interpretation Summary Patent inferior vena cava and right iliac vein stent with normal venous flow pa ttern. No flow visualized in left iliac vein stent. Ordering Physician: Marely Whyte Referring Physician: Raheem Nguyen Performed By: Ej Kim RVT
== END | disposition home or self-care (01) ==
LOC: CVS 09:31
PROVIDERS: PCP Family Medicine; Referring Provider Physician Assistant; Visit Provider Physician Assistant
DX: Z48.812 Encounter for surgical aftercare following surgery on the circulatory system (principal); I87.1 Compression of vein
CPT/HCPCS: 93978

== ENCOUNTER → 2024-12-18 | Outpatient (CLI) | payer OTHER, SELFPAY ==
--- NOTE | 2024-12-18 15:14 | RAD_ITS ---
PROCEDURE: ACUTE ABDOMEN INC CHEST 12/18/2024 REASON FOR EXAM: CONSTIPATION TECHNIQUE: 2 frontal views of the chest with 2 supine and upright views of the abdomen to include the entire abdomen and pelvis, 6 total images. COMPARISON: 01/29/2024 FINDINGS: The lungs appear clear. The cardiac and mediastinal contours appear within limits. No evidence of free air. No gaseous distention of bowel. No significant fecal load. Bilateral kissing venous iliac stents. RAD/Acute Abdomen Inc Chest IMPRESSION: Bowel gas pattern appears within limits as above. Reading Location: [id number]
== END | disposition home or self-care (01) ==
LOC: MTRAD 15:13
PROVIDERS: PCP Family Medicine; Referring Provider Family Medicine; Visit Provider Family Medicine
DX: K59.00 Constipation, unspecified (principal)
CPT/HCPCS: 74022

== ENCOUNTER → 2025-01-28 | Outpatient (CLI) | payer OTHER, SELFPAY ==
--- OUTSIDE RECORDS SUMMARY | 2025-01-28 06:22 | XMS RPT_ITS | CCD ---
Author Organization [facility] Team Providers Care General Farmer Name Role Phone Dr. Raheem Nguyen Primary Care Provider Dr. Bruce Felipe Attending Provider [phone] Dr. Raheem Nguyen Referring Provider Skylar KNOWLES PA Marely Attending Provider Dr. Raheem Nguyen Primary Care Provider [phone] Dr. Raheem Nguyen Referring Provider Dr. Bruce Felipe Attending Provider Skylar KNOWLES PA Marely Attending Provider Dr. Silvino Mar Attending Provider [phone] BENSON Bolaños Referring Provider Dr. Silvino Mar Referring Provider [phone] Silvino Mar Other Provider Dr. Raheem Nguyen Primary Care Provider [phone] Dr. Raheem Nguyen Referring Provider BENSON Cheng Attending Provider BENSON Cheng Referring Provider Dr. Raheem Nguyen Primary Care Provider [phone] Dr. Silvino Mar Attending Provider [phone] BENSON Whyte Referring Provider Dr. Raheem Nguyen Primary Care Provider Dr. Silvino Mar Attending Provider BENSON Whyte Marely Referring Provider [phone] Wendy MARTINEZ, Dr. Raheem Joe Primary Care Provider Wendy MARTINEZ, Dr. Raheem Joe Attending Provider [phone] Wendy MARTINEZ, Dr. Raheem Joe Referring Provider [phone] Tangela ENTRY LEVEL ACCOUNT EXECUTIVE-C, Brooklynn Attending Provider Honeycutt ENTRY LEVEL ACCOUNT EXECUTIVE-C, Brooklynn Referring Provider Honeycutt ENTRY LEVEL ACCOUNT EXECUTIVE-C, Brooklynn Other Provider [phone] Tunde BARBA, Dr. Cazares Attending Provider Melody Cisneros Attending Provider [phone] Melody Cisneros Referring Provider [phone] Marely Huynh Attending Provider [phone] Pato KNOWLES, Marely Referring Provider [phone] Zaid MARTINEZ, Dr. Dubois Attending Provider Schinner, Raheem E Primary Care Unavailable Whyte, Marely Referring Unavailable WhyteTankMarely Attending Unavailable Schinner, Raheem E Primary Care Unavailable Tangela ENTRY LEVEL ACCOUNT EXECUTIVE, Brooklynn Attending Unavailable Tangela ENTRY LEVEL ACCOUNT EXECUTIVE, Brooklynn Referring Unavailable Jopperi, Silvino Consulting Unavailable Zaid, Silvino Admitting Unavailable Zaid, Silvino Referring Unavailable Zaid, Silvino Attending Unavailable Schinner, Raheem E Primary Care Unavailable Tallula, Silvino Consulting Unavailable Schinner, Raheem E Primary Care Unavailable Zaid, Silvino Attending Unavailable Schinner, Arheem E Primary Care Unavailable Melody Cisneros Attending Unavail able Melody Cisneros Referring Unavail able Schinner, Raheem E Primary Care Unavailable Schinner, Raheem E Referring Unavailable Schinner, Raheem E Attending Unavailable Schinner, Raheem E Primary Care Unavailable Schinner, Raheem E Referring Unavailable Schinner, Raheem E Attending Unavailable Tallula, Silvino Admitting Unavailable Schinner, Raheem E Primary Care Unavailable Tallula, Silvino Referring Unavailable Tallula, Silvino Attending Unavailable Vaheeri, Silvino Consulting Unavailable John Quigley Consulting Unavailable John Quigley Attending Unavailable Tangela ENTRY LEVEL ACCOUNT EXECUTIVEBrooklynn Attending Unavailable Tangela ENTRY LEVEL ACCOUNT EXECUTIVE, Brooklynn Referring Unavailable Schinner, Raheem E Primary Care Unavailable Schinner, Raheem E Attending Unavailable Schinner, Raheem E Referring Unavailable Schinner, Raheem E Primary Care Unavailable Schinner, Raheem E Attending Unavailable Schinner, Raheem E Referring Unavailable Schinner, Raheem E Primary Care Unavailable Schinner, Raheem E Primary Care Unavailable Michael Brown Attending Unavailable Schinner, Raheem E Primary Care Unavailable You Bowden Attending Unavailable Marely Whyte Referring Unavailable Whyte, Marely Attending Unavailable Schinner, Raheem E Primary Care Unavailable Schinner, Raheem E Primary Care Unavailable Tallula, Silvino Attending Unavailable Zaid, Silvino Referring Unavailable Schinner, Raheem E Referring Unavailable Schinner, Raheem E Primary Care Unavailable Tangela MOY, Brooklynn Attending Unavailable Schinner, Raheem E Referring Unavailable Schinner, Raheem E Primary Care Unavailable Tallula, Silvino Attending Unavailable Marely Whyte Attending Unavailable Schinner, Raheem E Referring Unavailable Schinner, Raheem E Primary Care Unavailable Silvino Walton Attending Unavailable Schinner, Raheem E Primary Care Unavailable Zaid, Silvino Attending Unavailable Zaid, Silvino Admitting Unavailable Zaid, Silvino Referring Unavailable Tallula, Silvino Admitting Unavailable Schinner, Raheem E Primary Care Unavailable John Quigley Unavailable Zaid, Silvino Referring Unavailable Tallula, Silvino Attending Unavailable Zaid, Silvino Consulting Unavailable Schinner, Raheem E Primary Care Unavailable Tangela ENTRY LEVEL ACCOUNT EXECUTIVE, Brooklynn Referring Unavailable Tangela MOY, Brooklynn Attending Unavailable Schinner, Raheem E Primary Care Unavailable Tallula, Silvino Attending Unavailable Zaid, Silvino Consulting Unavailable Tallula, Silvino Admitting Unavailable Tallula, Silvino Referring Unavailable Schinner, Raheem E Primary Care Unavailable Schinner, Raheem E Referring Unavailable WhyteMarely finney Attending Unavailable Schinner, Raheem E Primary Care Unavailable Schinner, Raheem E Referring Unavailable Sarahi Tejeda Attending Unavailable Marely Whyte Attending Unavailable Schinner, Raheem E Primary Care Unavailable Schinner, Raheem E Referring Unavailable WhyteMarely finney Attending Unavailable Schinner, Raheem E Referring Unavailable Schinner, Raheem E Primary Care Unavailable Schinner, Raheem E Primary Care Unavailable Schinner, Raheem E Referring Unavailable Tallula, Silvino Attending Unavailable Marely Whyte Attending Unavailable Schinner, Raheem E Primary Care Unavailable Tangela ENTRY LEVEL ACCOUNT EXECUTIVE, Brooklynn Consulting Unavailable Tangela ENTRY LEVEL ACCOUNT EXECUTIVE, Brooklynn Referring Unavailable Sage Griffiths Attending Unavailable Marely Whyte Referring Unavailable Raheem Nguyen Primary Care Unavailable Silvino Mar Attending Unavailable Raheem Nguyen Primary Care Unavailable Silvino Mar Attending Unavailable Silvino Mar Referring Unavailable Mateus Hennessy Attending Unavailable Raheem Nguyen E Primary Care Unavailable Silvino Mar Referring Unavailable Raheem Nguyen E Primary Care Unavailable Marely Whyte Referring Unavailable Silvino Mar Attending Unavailable Raheem Nguyen E Primary Care Unavailable Raheem Nguyen E Referring Unavailable Sage Griffiths Attending Unavailable Raheem Nguyen E Primary Care Unavailable Raheem Nguyen E Referring Unavailable Raheem Nguyen Attending Unavailable Allergies Allergy Classification Reported Allergen(s) Allergy Type Date of Onset Reaction(s) Facility (11 sources) Penicillins Allergy to substance 12-16-[address] [facility] Comment on above: swelling (3 sources) Amoxicillin Drug Allergy 08-19-[address] [facility] (3 sources) Cefaclor Drug Allergy 08-19-2024 [facility] (1 source) Amoxicillin Drug Allergy 12-18-[address] [facility] Repository (1 source) Cefaclor Drug Allergy 12-18-[address] [facility] (1 source) Penicillins Drug allergy (disorder) 12-18-[address] [facility] Medications Current Medications Medication Drug Class(es) Dates Sig (Normalized) Sig (Original) acetaminophen 500 mg oral tablet (3 sources) Start: 04-17-2024 take 2 tablets by mouth every eight hours as needed for pain Acetaminophen (Acetaminophen Extra Strength) 500 mg tablet Active 1000 mg PO Q8H as needed for fever or pain April 17, 2024 12:00am [id number] 200 actuat albuterol 0.09 mg/actuat metered dose inhaler (3 sources) beta2-Adrenergic Agonist Start: 04-13-2024 Albuterol Sulfate 90 mcg/actuation HFA aerosol inhaler Active 2 NMA INHALATION EVERY 4 HOURS NEEDED April 13, 2024 12:00am apixaban 5 mg oral tablet (20 sources) Factor Xa Inhibitor Start: 07-29-2024 take 1 tablet by mouth twice daily Apixaban (Eliquis) 5 mg tablet Active 5 mg PO TWICE A DAY 60 July 29, 2024 1:00am Start: 04-25-2024 End: 05-27-2024 take 2 tablets by mouth twice daily Apixaban (Eliquis) 5 mg Tablet Discontinued 10 mg PO TWICE A DAY 0 April 25, 2024 12:00am May 27, 2024 4:14pm Start: 04-14-2024 End: 06-25-2024 take 1 tablet by mouth twice daily Apixaban (Eliquis Dvt-Pe Treat 30d Start) 5 mg (74 tabs) tablets,dose pack Discontinued 5 mg PO TWICE A DAY 74 April 14, 2024 12:00am June 25, 2024 3:18pm Start: 10-04-2022 End: 12-14-2022 take 1 tablet by mouth twice daily Apixaban (Eliquis) 5 mg tablet Discontinued 5 mg PO TWICE A DAY October 04, 2022 1:00am December 14, 2022 10:01am On Hold: Order Changed aspirin 81 mg delayed release oral tablet (9 sources) Platelet Aggregation Inhibitor, Nonsteroidal Anti-inflammatory Drug Start: 12-14-2022 take 1 tablet by mouth once daily Aspirin (Adult Aspirin Regimen) 81 mg tablet,delayed release (DR/EC) Active 81 mg PO DAILY December 14, 2022 12:00am Multivitamin (Daily Multi-Vitamin) tablet (3 sources) Start: 04-17-2024 Multivitamin (Daily Multi-Vitamin) tablet Active 1 {tbl} PO DAILY April 17, 2024 12:00am naproxen 250 mg oral tablet (12 sources) Nonsteroidal Anti-inflammatory Drug Start: 05-27-2024 take 1 tablet by mouth every eight hours as needed for pain Naproxen 250 mg tablet Active 250 mg PO EVERY 8 HOURS NEEDED as needed for pain May 27, 2024 12:00am Start: 05-15-2024 End: 05-20-2024 take 1 tablet by mouth every eight hours as needed for pain Naproxen 250 mg tablet Discontinued 250 mg PO Q8H as needed for pain 15 5 May 15, 2024 8:32am May 19, 2024 12:00am May 20, 2024 12:07am Start: 04-17-2024 End: 04-26-2024 take 1 tablet by mouth every eight hours as needed for pain Naproxen 250 mg tablet Discontinued 250 mg PO Q8H as needed for pain 16 5 April 17, 2024 9:26am April 21, 2024 12:00am April 26, 2024 12:09am pantoprazole 40 mg delayed release oral tablet (3 sources) Proton Pump Inhibitor Start: 04-13-2024 take 1 tablet by mouth once daily Pantoprazole 40 mg tablet,delayed release (DR/EC) Active 40 mg PO DAILY April 13, 2024 12:00am PARoxetine hydrochloride 30 mg oral tablet (6 sources) Serotonin Reuptake Inhibitor Start: 05-27-2024 take 1 tablet by mouth once daily Paroxetine Hcl 30 mg tablet Active 30 mg PO DAILY May 27, 2024 12:00am Start: 04-13-2024 End: 05-27-2024 take 1 tablet by mouth once daily Paroxetine Hcl 20 mg tablet Discontinued 20 mg PO DAILY April 13, 2024 12:00am May 27, 2024 4:14pm Completed/Discontinued Medications Medication Drug Class(es) Dates Sig (Normalized) Sig (Original) clopidogrel 75 mg oral tablet (9 sources) P2Y12 Platelet Inhibitor Start: 12-14-2022 End: 12-11-2023 take 1 tablet by mouth once daily Clopidogrel (Plavix) 75 mg tablet Discontinued 75 mg PO DAILY December 14, 2022 12:00am December 11, 2023 9:09am Enoxaparin (Lovenox) 120 mg/0.8 mL syringe (3 sources) Start: 06-25-2024 End: 07-03-2024 Enoxaparin (Lovenox) 120 mg/0.8 mL syringe Discontinued 120 mg SC Q12H 48 30 June 25, 2024 1:00am July 03, 2024 4:41pm LORazepam 1 mg oral tablet (11 sources) Benzodiazepine Start: 12-16-2020 End: 10-04-2022 take 1 tablet by mouth three times daily as needed for anxiety Lorazepam (Ativan) 1 mg tablet Discontinued 1 mg PO THREE TIMES A DAY as needed for anxiety December 16, 2020 12:00am October 04, 2022 4:12pm omeprazole 20 mg delayed release oral capsule (10 sources) Proton Pump Inhibitor Start: 10-04-2022 End: 04-13-2024 take 1 capsule by mouth once daily Omeprazole 20 mg capsule,delayed release(DR/EC) Discontinued 20 mg PO DAILY October 04, 2022 1:00am April 13, 2024 11:28pm oxyCODONE hydrochloride 5 mg oral tablet (18 sources) Opioid Agonist Start: 04-17-2024 End: 04-17-2024 take 2 tablets by mouth three times daily as needed for pain Oxycodone 5 mg tablet Discontinued 10 mg PO THREE TIMES A DAY as needed for pain 18 3 April 17, 2024 April 17, 2024 10:22am Start: 04-14-2024 End: 05-27-2024 take 2 tablets by mouth three times daily as needed for pain Oxycodone 5 mg tablet Discontinued 10 mg PO THREE TIMES A DAY as needed for pain 18 April 17, 2024 May 27, 2024 4:14pm Start: 12-14-2022 End: 12-18-2022 take 1 tablet by mouth every eight hours as needed for pain Oxycodone 5 mg tablet Discontinued 5 mg PO Q8H as needed for pain 12 December 14, 2022 December 17, 2022 12:00am December 18, 2022 12:04am polyethylene glycol 3350 14403 mg powder for oral solution (3 sources) Osmotic Laxative Start: 04-17-2024 End: 05-27-2024 Polyethylene Glycol 3350 (Miralax) 17 gram/dose powder Discontinued 4 g PO DAILY April 17, 2024 12:00am May 27, 2024 4:15pm sertraline 50 mg oral tablet (10 sources) Serotonin Reuptake Inhibitor Start: 10-04-2022 End: 04-13-2024 take 1 tablet by mouth once daily Sertraline (Zoloft) 50 mg tablet Discontinued 50 mg PO DAILY October 04, 2022 1:00am April 13, 2024 11:28pm Problems Active Problems Problem Classification Problem Date Documented Da te Episodic/Chronic Chronic obstructive pulmonary disease and bronchiectasis (1 source) Chronic obstructive pulmonary disease, unspecified; Translations: [Chronic obstructive pulmonary disease, unspecified] Onset: 01-16-2025 Chronic Malaise and fatigue (3 sources) Fatigue; Translations: [Other fatigue] 07-01-2024 Episodic Other aftercare (8 sources) Surgical follow-up; Translations: [Encounter for surgical aftercare following surgery on the circulatory system] 01-23-2023 Episodic Other aftercare (2 sources) Encounter for surgical aftercare following surgery on the circulatory system; Translations: [Encounter for surgical aftercare following surgery on the circulatory system] Onset: 06-12-2024 Episodic Other connective tissue disease (10 sources) Swelling of left lower limb; Translations: [Other specified soft tissue disorders] 10-04-2022 Episodic Other diseases of veins and lymphatics (8 sources) Obstruction of iliac vein; Translations: [Compression of vein] 01-11-2023 Episodic Other gastrointestinal disorders (1 source) Constipation, unspecified; Translations: [Constipation, unspecified] Onset: 12-24-2024 Episodic Other lower respiratory disease (10 sources) Dyspnea on exertion; Translations: [Shortness of breath] 10-04-2022 Episodic Other lower respiratory disease (3 sources) Wheezing; Translations: [Wheezing] 08-19-2024 Episodic Other lower respiratory disease (1 source) Wheezing; Translations: [Wheezing] Onset: 01-16-2025 Episodic Other screening for suspected conditions (not mental disorders or infectious disease) (7 sources) Lung function testing abnormal; Translations: [Abnormal results of pulmonary function studies] Onset: 01-16-2025 08-19-2024 Episodic Comment on above: flattening of the in spiratory & expiatory flow limb Peripheral and visceral atherosclerosis (4 sources) Peripheral vascular disease; Translations: [Peripheral vascular disease, unspecified] Onset: 04-17-2024 04-22-2024 Chronic Residual codes; unclassified (3 sources) Obstructive sleep apnea syndrome; Translations: [Obstructive sleep apnea (adult) (pediatric)] 10-30-2024 Chronic Residual codes; unclassified (6 sources) Daytime hypersomnia; Translations: [Hypersomnia, unspecified] 08-19-2024 Chronic Residual codes; unclassified (1 source) Obstructive sleep apnea (adult) (pediatric); Translations: [Obstructive sleep apnea (adult) (pediatric)] Onset: 11-19-2024 Chronic Residual codes; unclassified (1 source) Hypersomnia, unspecified; Translations: [Hypersomnia, unspecified] Onset: 11-02-2024 Chronic Residual codes; unclassified (6 sources) Harmful pattern of use of nicotine; Translations: [Tobacco use] 08-19-2024 Episodic Substance-related disorders (3 sources) Tobacco user; Translations: [Nicotine dependence, unspecified, uncomplicated] 04-22-2024 Chronic Past or Other Problems Problem Classification Problem Date Documented Da te Episodic/Chronic Abdominal pain (4 sources) Abdominal pain; Translations: [Unspecified abdominal pain] Onset: 05-08-2024 04-22-2024 Episodic Epilepsy; convulsions (4 sources) Neurological finding; Translations: [Unspecified convulsions] Onset: 06-12-2024 06-06-2024 Episodic Other connective tissue disease (1 source) Other specified soft tissue disorders; Translations: [Other specified soft tissue disorders] Onset: 06-12-2024 Episodic Other diseases of veins and lymphatics (2 sources) Compression of vein; Translations: [Compression of vein] Onset: 06-18-2024 01-11-2023 Episodic Other lower respiratory disease (2 sources) Shortness of breath; Translations: [Shortness of breath] Onset: 09-16-2024 Episodic Other lower respiratory disease (1 source) Dyspnea, unspecified; Translations: [Dyspnea, unspecified] Onset: 09-11-2024 Episodic Other nervous system disorders (1 source) Other abnormalities of gait and mobility; Translations: [Other abnormalities of gait and mobility] Onset: 05-02-2024 Episodic Phlebitis; thrombophlebitis and thromboembolism (19 sources) Deep venous thrombosis; Translations: [Acute embolism and thrombosis of unspecified deep veins of unspecified lower extremity] Onset: 05-01-2024 10-04-2022 Episodic Results Test Name Value Interpretation Reference Range Facility Pulmonary Visit Reporton Pulmonary Visit Report Normal [facility] Acute Abdomen Inc Cheston Acute Abdomen Inc Chest Normal [facility] MR/BMS.BVSon 12-18-2024 MR/BMS.BVS Normal [facility] D/C Summary- SPon 12-10-2024 D/C Summary- SP Normal [facility] Abdominal aortic duplex scan reportOrdered By: Silvino Mar on 12-01-2024 US.doppler Thoracic and abdominal aorta [facility] [place] [address] Abd Aortic/IVC Duplex scan 11/28/24 0939 MR#: [id number] Acct: [id number] Name: DHARMESH GTZ Jr. Rep #:[id number] : 1990 34 From: Silvino Mascorro Attending Dr: BENSON Lee Stat us: REG CLI Ordering Dr: Marely Whyte Date: Location: [facility] Sex: M C Admitted: Reason For Study Reason For Study: HX Iliaic Vein Stents Inferior Vena Cava Proximal inferior vena cava measures 1.33 x 1.97 cm. in the cross-sectional axis. Proximal inferior vena cava measures 0.86 cm. in the longitudinal axis. Mid inferior vena cava measures 1.23 x 1.47 cm. in the cross-sectional axis. Mid inferior vena cava measures 1.40 cm. in the longitudinal axis. Distal inferior vena cava measures 1.54 x 1.83 cm. in the cross-sectional axis. Distal inferior vena cava measures 1.47 cm. in the longitudinal axis. The inferior vena cava has spontaneous, phasic flow throughout. Left Common Iliac Vein Left common iliac vein measures 1.53 x 1.53 cm. in the cross-sectional axis. Left common iliac vein measures 1.58 cm. in the longitudinal axis. Unable to visualize flow in LT CIV. Stent Noted. Right Common Iliac Vein Right common iliac vein measures 1.54 x 1.47 cm. in the cross-sectional axis. Right common iliac vein measures 1.50 cm. in the longitudinal axis. The right common iliac vein has spontaneous, phasic flow throughout. Stent Noted. Procedure Aorta IVC Iliac vasculature or bypass grafts 81374. The exam was diagnostic. Exam performed in department. 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 No flow visualized in left iliac vein stent. Ordering Physician: Marely Whyte Referring Physician: Raheem Nguyen Performed By: Ej Kim, RVT 12/01/24745 Date _ Silvino Mar MD CC: BENSON Lee; Dr. 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 Work Phone: Abd Aortic/IVC Duplex scanon 11-28-2024 Abd Aortic/IVC Duplex scan Normal [facility] SP/HP.SP.Edd 11-13-2024 SP/HP.SP.EV Normal [facility] Chest without Contraston Chest without Contrast Normal [facility] 6 Minute Walk Teston 025 6 Minute Walk Test Normal [facility] Pulmonary Visit Reporton Pulmonary Visit Report Normal [facility] Soft Tissue Neck WITH Contra ston 08-15-2024 Soft Tissue Neck WITH Contrast Normal [facility] Surgery Visit Reporton 07-03 Surgery Visit Report Normal [facility] Abd Aortic/IVC Duplex scanon 06-23-2024 Abd Aortic/IVC Duplex scan Normal [facility] Venous Duplex US, Unilateral on 06-23-2024 Venous Duplex US, Unilateral Normal [facility] Surgery Visit Reporton 06-06 Surgery Visit Report Normal [facility] Basic Metabolic Profile (BMP )on 05-29-2024 BUN/CRE 15.6 RATIO Normal 06-[address] [facility] Comment on above: Performed By: #### L 100.0100, L500.2500 ####[facility] [address] [place], [address] CA,Total 8.9 mg/dL Normal 8.5-10.[address] [facility] Comment on above: Performed By: #### L 100.0100, L500.2500 ####[facility] [address] [place], [address] Chloride [Moles/Vol] 107 mmol/L Normal 98-107 [facility] Comment on above: Performed By: #### L 100.0100, L500.2500 ####[facility] [address] [place], [address] CO2 [Moles/Vol] 24.0 mmol/L Normal 21.0-32.[address] [facility] Comment on above: Performed By: #### L 100.0100, L500.2500 ####[facility] [address] [place], [address] Creatinine [Mass/Vol] 0.64 mg/dL Low 0.70-1.[address] [facility] Comment on above: Result Comment: The validity of the calculated GFR GFRAA in patients over70 years has not been determined. Clinical correlation isessential. Performed By: #### L 100.0100, L500.2500 ####[facility] [address] [place], [address] ECRCL 241.73 ml/min Normal [facility] Comment on above: Performed By: #### L 100.0100, L500.2500 ####[facility] [address] [place], [address] EST GFR - AA 184 mL/min Normal >[address] [facility] Comment on above: Result Comment: Afri can [place] GFR Calc Performed By: #### L 100.0100, L500.2500 ####[facility] [address] [place], [address] GAP 7 Normal 5-[address] [facility] Comment on above: Performed By: #### L 100.0100, L500.2500 ####[facility] [address] [place], [address] GFR/1.73 sq M.predicted among non-blacks MDRD (S/P/Bld) [Vol rate/Area] 152 mL/min/{1.73_m2} Normal >[address] [facility] Comment on above: Result Comment: Non- GFR Calc Performed By: #### L 100.0100, L500.2500 ####[facility] [address] [place], [address] Glucose [Mass/Vol] 97 mg/dL Normal 74-106 [facility] Comment on above: Performed By: #### L 100.0100, L500.2500 ####[facility] [address] [place], [address] Potassium [Moles/Vol] 3.8 mmol/L Normal 3.5-5.[address] [facility] Comment on above: Performed By: #### L 100.0100, L500.2500 ####[facility] [address] [place], [address] Sodium [Moles/Vol] 138 mmol/L Normal 136-145 [facility] Comment on above: Performed By: #### L 100.0100, L500.2500 ####[facility] [address] [place], [address] Urea nitrogen [Mass/Vol] 10 mg/dL Normal 7-[address] [facility] Comment on above: Performed By: #### L 100.0100, L500.2500 ####[facility] [address] [place], [address] CBC W/Diff, Automatedon 10-1 0-2024 Absolute Lymph 1.57 X10 3/uL Normal 0.83-4.[address] [facility] Comment on above: Performed By: #### L 100.0100, L500.2500 ####[facility] [address] [place], [address] Absolute Neut 4.6 X10 3/uL Normal 2.0-7.[address] [facility] Comment on above: Performed By: #### L 100.0100, L500.2500 ####[facility] [address] [place], [address] Basophils/100 WBC (Bld) 0.6 % Normal 0-[address] [facility] Comment on above: Performed By: #### L 100.0100, L500.2500 ####[facility] [address] [place], [address] Eosinophils/100 WBC (Bld) 1.9 % Normal 0-[address] [facility] Comment on above: Performed By: #### L 100.0100, L500.2500 ####[facility] [address] [place], [address] Erythrocyte distribution width (RBC) [Ratio] 13.6 % Normal 11.6-14.[address] [facility] Comment on above: Performed By: #### L 100.0100, L500.2500 ####[facility] [address] [place], [address] Hematocrit (Bld) [Volume fraction] 37.8 % Low 40-[address] [facility] Comment on above: Performed By: #### L 100.0100, L500.2500 ####[facility] [address] [place], [address] Hemoglobin (Bld) [Mass/Vol] 12.5 g/dL Low 13.0-16.[address] [facility] Comment on above: Performed By: #### L 100.0100, L500.2500 ####[facility] [address] [place], [address] IG% 0.800 Normal 0.0-0.[address] [facility] Comment on above: Result Comment: IG% - Immature Granulocytes (promyelocytes, myelocytes andmetamyelocytes) > 1% indicates that a LEFT SHIFT is Present. Performed By: #### L 100.0100, L500.2500 ####[facility] [address] [place], [address] Lymphocytes/100 WBC (Bld) 21.6 % Normal 19-[address] [facility] Comment on above: Performed By: #### L 100.0100, L500.2500 ####[facility] [address] [place], [address] MCH (RBC) [Entitic mass] 32.1 pg High 27.0-32.[address] [facility] Comment on above: Performed By: #### L 100.0100, L500.2500 ####[facility] [address] [place], [address] MCHC (RBC) [Mass/Vol] 33.1 g/dL Normal 32-[address] [facility] Comment on above: Performed By: #### L 100.0100, L500.2500 ####[facility] [address] [place], [address] MCV (RBC) [Entitic vol] 96.9 fL High 80-[address] [facility] Comment on above: Performed By: #### L 100.0100, L500.2500 ####[facility] [address] [place], [address] Monocytes/100 WBC (Bld) 11.8 % High 0-[address] [facility] Comment on above: Performed By: #### L 100.0100, L500.2500 ####[facility] [address] [place], [address] Neutrophils/100 WBC (Bld) 63.3 % Normal 47-[address] [facility] Comment on above: Performed By: #### L 100.0100, L500.2500 ####[facility] [address] [place], [address] Nucleated RBC (Bld) [#/Vol] 0 10*3/uL Normal 0-[address] [facility] Comment on above: Performed By: #### L 100.0100, L500.2500 ####[facility] [address] [place], [address] Platelet mean volume (Bld) [Entitic vol] 9.9 fL Normal 6.2-12.[address] [facility] Comment on above: Performed By: #### L 100.0100, L500.2500 ####[facility] [address] [place], [address] Platelets (Bld) [#/Vol] 173 10*3/uL Normal 150-[address] [facility] Comment on above: Performed By: #### L 100.0100, L500.2500 ####[facility] [address] [place], [address] RBC (Bld) [#/Vol] 3.90 10*6/uL Low 4.6-6.2 [facility] Comment on above: Performed By: #### L 100.0100, L500.2500 ####[facility] [address] [place], [address] RDW SD 48.5 fl High 35.1-43.[address] [facility] Comment on above: Performed By: #### L 100.0100, L500.2500 ####[facility] [address] [place], [address] WBC (Bld) [#/Vol] 7.3 10*3/uL Normal 4.4-11.0 [facility] Comment on above: Performed By: #### L 100.0100, L500.2500 ####[facility] [address] [place], [address] Partial Thromboplast Timeon 05-29-2024 aPTT Coag (Bld) [Time] 34.8 s Normal 24.1-36.[address] [facility] Comment on above: Performed By: #### L 300.4310 ####[facility] [address] [place], [address] Urine Drug Screen (VISTA)on 05-29-2024 AMPHETAMINES Negative Normal <1000 ng/mL [facility] Comment on above: Performed By: #### L 505.5000 ####[facility] [address] [place], [address] BARBITIURATES Negative Normal < 200 ng/mL [facility] Comment on above: Performed By: #### L 505.5000 ####[facility] [address] [facility] [address] BENZODIAZIPINE Positive Abnormal < 200 ng/mL [facility] Comment on above: Performed By: #### L 505.5000 ####[facility] [address] [place], [address] COCAINE Negative Normal < 300 ng/mL [facility] Comment on above: Performed By: #### L 505.5000 ####[facility] [address] [facility] [address] ECSTACY Negative Normal < 500 ng/mL [facility] Comment on above: Performed By: #### L 505.5000 ####[facility] [address] [place], [address] METHADONE Negative Normal < 300 ng/mL [facility] Comment on above: Performed By: #### L 505.5000 ####[facility] [address] [place], [address] OPIATES Negative Normal < 300 ng/mL [facility] Comment on above: Performed By: #### L 505.5000 ####[facility] [address] [place], [address] PCP Negative Normal < 25 ng/mL [facility] Comment on above: Performed By: #### L 505.5000 ####[facility] [address] [facility] [address] THC Negative Normal < 50 ng/mL [facility] Comment on above: Performed By: #### L 505.5000 ####[facility] [address] [place], [address] VISTA UDS PH [address] [facility] Comment on above: Performed By: #### L 505.5000 ####[facility] [address] [place], [address] ACT Activated Clotting Timeo n 05-28-2024 ACTk CLOT TIME 208 sec High 74-[address] [facility] Comment on above: Performed By: #### L 9100.0100 ####[facility] [address] [place], [address] ACTk CLOT TIME 189 sec High 74-[address] [facility] Comment on above: Performed By: #### L 9100.0100 ####[facility] [address] [place], [address] ACTk CLOT TIME 195 sec High 74-[address] [facility] Comment on above: Performed By: #### L 9100.0100 ####[facility] [address] [place], [address] ACTk CLOT TIME 201 sec High 74-[address] [facility] Comment on above: Performed By: #### L 9100.0100 ####[facility] [address] [place], [address] Basic Metabolic Profile (BMP )on 05-28-2024 BUN/CRE 15.6 RATIO Normal 10-[address] [facility] Comment on above: Performed By: #### L 100.0500, L500.2500 ####[facility] [address] [place], [address] CA,Total 9.2 mg/dL Normal 8.5-10.[address] [facility] Comment on above: Performed By: #### L 100.0500, L500.2500 ####[facility] [address] [place], [address] Chloride [Moles/Vol] 109 mmol/L High 98-107 [facility] Comment on above: Performed By: #### L 100.0500, L500.2500 ####[facility] [address] [place], [address] CO2 [Moles/Vol] 23.0 mmol/L Normal 21.0-32.[address] [facility] Comment on above: Performed By: #### L 100.0500, L500.2500 ####[facility] [address] [place], [address] Creatinine [Mass/Vol] 0.83 mg/dL Normal 0.70-1.[address] [facility] Comment on above: Result Comment: The validity of the calculated GFR GFRAA in patients over70 years has not been determined. Clinical correlation isessential. Performed By: #### L 100.0500, L500.2500 ####[facility] [address] [place], [address] ECRCL 188.90 ml/min Normal [facility] Comment on above: Performed By: #### L 100.0500, L500.2500 ####[facility] [address] [place], [address] EST GFR - AA 136 mL/min Normal >[address] [facility] Comment on above: Result Comment: Afri can [place] GFR Calc Performed By: #### L 100.0500, L500.2500 ####[facility] [address] [place], [address] GAP 8 Normal 5-[address] [facility] Comment on above: Performed By: #### L 100.0500, L500.2500 ####[facility] [address] [place], [address] GFR/1.73 sq M.predicted among non-blacks MDRD (S/P/Bld) [Vol rate/Area] 112 mL/min/{1.73_m2} Normal >[address] [facility] Comment on above: Result Comment: Non- GFR Calc Performed By: #### L 100.0500, L500.2500 ####[facility] [address] [place], [address] Glucose [Mass/Vol] 106 mg/dL Normal 74-106 [facility] Comment on above: Result Comment: Fast ing Glucose result from 100 to 125 mg/dLsuggests IMPAIRED HOMEOSTASIS per A.D.A. criteria. Performed By: #### L 100.0500, L500.2500 ####[facility] [address] [place], [address] Potassium [Moles/Vol] 4.0 mmol/L Normal 3.5-5.[address] [facility] Comment on above: Performed By: #### L 100.0500, L500.2500 ####[facility] [address] [place], [address] Sodium [Moles/Vol] 140 mmol/L Normal 136-145 [facility] Comment on above: Performed By: #### L 100.0500, L500.2500 ####[facility] [address] [place], [address] Urea nitrogen [Mass/Vol] 13 mg/dL Normal 7-[address] [facility] Comment on above: Performed By: #### L 100.0500, L500.2500 ####[facility] [address] [place], [address] BUN/CRE 15.6 RATIO Normal 10-[address] [facility] Comment on above: Performed By: #### L 100.0100, L500.2500 ####[facility] [address] [place], [address] CA,Total 9.1 mg/dL Normal 8.5-10.[address] [facility] Comment on above: Performed By: #### L 100.0100, L500.2500 ####[facility] [address] [place], [address] Chloride [Moles/Vol] 109 mmol/L High 98-107 [facility] Comment on above: Performed By: #### L 100.0100, L500.2500 ####[facility] [address] [place], [address] CO2 [Moles/Vol] 23.0 mmol/L Normal 21.0-32.[address] [facility] Comment on above: Performed By: #### L 100.0100, L500.2500 ####[facility] [address] [place], [address] Creatinine [Mass/Vol] 0.77 mg/dL Normal 0.70-1.[address] [facility] Comment on above: Result Comment: The validity of the calculated GFR GFRAA in patients over70 years has not been determined. Clinical correlation isessential. Performed By: #### L 100.0100, L500.2500 ####[facility] [address] [place], [address] ECRCL 203.62 ml/min Normal [facility] Comment on above: Performed By: #### L 100.0100, L500.2500 ####[facility] [address] [place], [address] EST GFR - AA 149 mL/min Normal >[address] [facility] Comment on above: Result Comment: Afri can [place] GFR Calc Performed By: #### L 100.0100, L500.2500 ####[facility] [address] [place], [address] GAP 8 Normal 5-[address] [facility] Comment on above: Performed By: #### L 100.0100, L500.2500 ####[facility] [address] [place], [address] GFR/1.73 sq M.predicted among non-blacks MDRD (S/P/Bld) [Vol rate/Area] 123 mL/min/{1.73_m2} Normal >[address] [facility] Comment on above: Result Comment: Non- GFR Calc Performed By: #### L 100.0100, L500.2500 ####[facility] [address] [place], [address] Glucose [Mass/Vol] 95 mg/dL Normal 74-106 [facility] Comment on above: Performed By: #### L 100.0100, L500.2500 ####[facility] [address] [place], [address] Potassium [Moles/Vol] 4.0 mmol/L Normal 3.5-5.[address] [facility] Comment on above: Performed By: #### L 100.0100, L500.2500 ####[facility] [address] [place], [address] Sodium [Moles/Vol] 140 mmol/L Normal 136-145 [facility] Comment on above: Performed By: #### L 100.0100, L500.2500 ####[facility] [address] [place], [address] Urea nitrogen [Mass/Vol] 12 mg/dL Normal 7-[address] [facility] Comment on above: Performed By: #### L 100.0100, L500.2500 ####[facility] [address] [place], [address] Brain/Head without Contrasto n - Brain/Head without Contrast Normal [facility] CBC W/Diff, Automatedon 10-0 Absolute Lymph 2.34 X10 3/uL Normal 0.83-4.[address] [facility] Comment on above: Performed By: #### L 100.0100, L500.2500 ####[facility] [address] [place], [address] Absolute Neut 2.2 X10 3/uL Normal 2.0-7.[address] [facility] Comment on above: Performed By: #### L 100.0100, L500.2500 ####[facility] [address] [place], [address] Basophils/100 WBC (Bld) 0.9 % Normal 0-[address] [facility] Comment on above: Performed By: #### L 100.0100, L500.2500 ####[facility] [address] [place], [address] Eosinophils/100 WBC (Bld) 6.9 % High 0-[address] [facility] Comment on above: Performed By: #### L 100.0100, L500.2500 ####[facility] [address] [place], [address] Erythrocyte distribution width (RBC) [Ratio] 13.5 % Normal 11.6-14.[address] [facility] Comment on above: Performed By: #### L 100.0100, L500.2500 ####[facility] [address] [place], [address] Hematocrit (Bld) [Volume fraction] 41.3 % Normal 40-[address] [facility] Comment on above: Performed By: #### L 100.0100, L500.2500 ####[facility] [address] [place], [address] Hemoglobin (Bld) [Mass/Vol] 13.7 g/dL Normal 13.0-16.[address] [facility] Comment on above: Performed By: #### L 100.0100, L500.2500 ####[facility] [address] [place], [address] IG% 0.500 Normal 0.0-0.[address] [facility] Comment on above: Result Comment: IG% - Immature Granulocytes (promyelocytes, myelocytes andmetamyelocytes) > 1% indicates that a LEFT SHIFT is Present. Performed By: #### L 100.0100, L500.2500 ####[facility] [address] [place], [address] Lymphocytes/100 WBC (Bld) 41.1 % High 19-[address] [facility] Comment on above: Performed By: #### L 100.0100, L500.2500 ####[facility] [address] [place], [address] MCH (RBC) [Entitic mass] 31.9 pg Normal 27.0-32.[address] [facility] Comment on above: Performed By: #### L 100.0100, L500.2500 ####[facility] [address] [place], [address] MCHC (RBC) [Mass/Vol] 33.2 g/dL Normal 32-[address] [facility] Comment on above: Performed By: #### L 100.0100, L500.2500 ####[facility] [address] [place], [address] MCV (RBC) [Entitic vol] 96.0 fL High 80-[address] [facility] Comment on above: Performed By: #### L 100.0100, L500.2500 ####[facility] [address] [place], [address] Monocytes/100 WBC (Bld) 11.4 % High 0-[address] [facility] Comment on above: Performed By: #### L 100.0100, L500.2500 ####[facility] [address] [place], [address] Neutrophils/100 WBC (Bld) 39.2 % Low 47-[address] [facility] Comment on above: Performed By: #### L 100.0100, L500.2500 ####[facility] [address] [place], [address] Nucleated RBC (Bld) [#/Vol] 0 10*3/uL Normal 0-[address] [facility] Comment on above: Performed By: #### L 100.0100, L500.2500 ####[facility] [address] [place], [address] Platelet mean volume (Bld) [Entitic vol] 10.0 fL Normal 6.2-12.[address] [facility] Comment on above: Performed By: #### L 100.0100, L500.2500 ####[facility] [address] [place], [address] Platelets (Bld) [#/Vol] 193 10*3/uL Normal 150-[address] [facility] Comment on above: Performed By: #### L 100.0100, L500.2500 ####[facility] [address] [place], [address] RBC (Bld) [#/Vol] 4.30 10*6/uL Low 4.6-6.2 [facility] Comment on above: Performed By: #### L 100.0100, L500.2500 ####[facility] [address] [place], [address] RDW SD 47.8 fl High 35.1-43.[address] [facility] Comment on above: Performed By: #### L 100.0100, L500.2500 ####[facility] [address] [place], [address] WBC (Bld) [#/Vol] 5.7 10*3/uL Normal 4.4-11.0 [facility] Comment on above: Performed By: #### L 100.0100, L500.2500 ####[facility] [address] [place], [address] CBC-Complete Blood Cnt No Di ffon 05-28-2024 Erythrocyte distribution width (RBC) [Ratio] 13.6 % Normal 11.6-14.[address] [facility] Comment on above: Performed By: #### L 100.0500, L500.2500 ####[facility] [address] [place], [address] Hematocrit (Bld) [Volume fraction] 39.9 % Low 40-[address] [facility] Comment on above: Performed By: #### L 100.0500, L500.2500 ####[facility] [address] [place], [address] Hemoglobin (Bld) [Mass/Vol] 13.3 g/dL Normal 13.0-16.[address] [facility] Comment on above: Performed By: #### L 100.0500, L500.2500 ####[facility] [address] [place], [address] MCH (RBC) [Entitic mass] 32.0 pg Normal 27.0-32.[address] [facility] Comment on above: Performed By: #### L 100.0500, L500.2500 ####[facility] [address] [place], [address] MCHC (RBC) [Mass/Vol] 33.3 g/dL Normal 32-[address] [facility] Comment on above: Performed By: #### L 100.0500, L500.2500 ####[facility] [address] [place], [address] MCV (RBC) [Entitic vol] 95.9 fL High 80-[address] [facility] Comment on above: Performed By: #### L 100.0500, L500.2500 ####[facility] [address] [place], [address] Platelet mean volume (Bld) [Entitic vol] 10.0 fL Normal 6.2-12.[address] [facility] Comment on above: Performed By: #### L 100.0500, L500.2500 ####[facility] [address] [place], [address] Platelets (Bld) [#/Vol] 181 10*3/uL Normal 150-[address] [facility] Comment on above: Performed By: #### L 100.0500, L500.2500 ####[facility] [address] [place], [address] RBC (Bld) [#/Vol] 4.16 10*6/uL Low 4.6-6.2 [facility] Comment on above: Performed By: #### L 100.0500, L500.2500 ####[facility] [address] [place], [address] RDW SD 47.8 fl High 35.1-43.[address] [facility] Comment on above: Performed By: #### L 100.0500, L500.2500 ####[facility] [address] [place], [address] WBC (Bld) [#/Vol] 10.2 10*3/uL Normal 4.4-11.0 [facility] Comment on above: Performed By: #### L 100.0500, L500.2500 ####[facility] [address] [place], [address] Consultation - Hospitaliston 05-28-2024 Consultation - Hospitalist Normal [facility] MR/POSTOP.ANEon 05-28-2024 MR/POSTOP.ANE Normal [facility] Operative Reporton Operative Report Normal [facility] Partial Thromboplast Timeon 05-28-2024 aPTT Coag (Bld) [Time] 41.3 s High 24.1-36.[address] [facility] Comment on above: Performed By: #### L 300.4310 ####[facility] [address] [place], [address] aPTT Coag (Bld) [Time] 27.8 s Normal 24.1-36.[address] [facility] Comment on above: Performed By: #### L 300.4310 ####[facility] [address] [place], [place], [address] aPTT Coag (Bld) [Time] 26.4 s Normal 24.1-36.[address] [facility] Comment on above: Performed By: #### L 300.4310 ####[facility] [address] [place], [place], [address] Venous Duplex US, Unilateral on 05-28-2024 Venous Duplex US, Unilateral Normal [facility] Partial Thromboplast Timeon 05-27-2024 aPTT Coag (Bld) [Time] 24.9 s Normal 24.1-36.[address] [facility] Comment on above: Performed By: #### L 300.4310 ####[facility] [address] [place], [place], [address] MR/BMS.BVSon 05-15-2024 MR/BMS.BVS Normal [facility] MR/[facility]MS.[facility] 05-02-2024 MR/BMS.BVS Normal [facility] Partial Thromboplast Timeon 04-25-2024 aPTT Coag (Bld) [Time] 36.5 s High 24.1-36.[address] [facility] Comment on above: Performed By: #### L 300.4310 ####[facility] [address] [place], [place], [id number] aPTT Coag (Bld) [Time] 41.6 s High 24.1-36.2 [facility] [facility] Comment on above: Performed By: #### L 300.4310 ####[facility] [address] [place], [address] aPTT Coag (Bld) [Time] 66.6 s High 24.1-36.[address] [facility] Comment on above: Performed By: #### L 300.4310 ####[facility] [address] [place], [place], [address] Basic Metabolic Profile (BMP )on 04-24-2024 BUN/CRE 18.3 RATIO Normal 10-[address] [facility] Comment on above: Performed By: #### L 500.2500 ####[facility] [address] [place], [address] CA,Total 9.2 mg/dL Normal 8.5-10.[address] [facility] Comment on above: Performed By: #### L 500.2500 ####[facility] [address] [place], [address] Chloride [Moles/Vol] 103 mmol/L Normal 98-107 [facility] Comment on above: Performed By: #### L 500.2500 ####[facility] [address] [place], [address] CO2 [Moles/Vol] 24.0 mmol/L Normal 21.0-32.[address] [facility] Comment on above: Performed By: #### L 500.2500 ####[facility] [address] [place], [address] Creatinine [Mass/Vol] 0.82 mg/dL Normal 0.70-1.[address] [facility] Comment on above: Result Comment: The validity of the calculated GFR GFRAA in patients over70 years has not been determined. Clinical correlation isessential. Performed By: #### L 500.2500 ####[facility] [address] [place], [address] ECRCL 191.99 ml/min Normal [facility] Comment on above: Performed By: #### L 500.2500 ####[facility] [address] [place], [address] EST GFR - AA 138 mL/min Normal >[address] [facility] Comment on above: Result Comment: Afri can [place] GFR Calc Performed By: #### L 500.2500 ####[facility] [address] [place], [address] GAP 9 Normal 5-[address] [facility] Comment on above: Performed By: #### L 500.2500 ####[facility] [address] [place], [address] GFR/1.73 sq M.predicted among non-blacks MDRD (S/P/Bld) [Vol rate/Area] 114 mL/min/{1.73_m2} Normal >[address] [facility] Comment on above: Result Comment: Non- GFR Calc Performed By: #### L 500.2500 ####[facility] [address] [place], [address] Glucose [Mass/Vol] 104 mg/dL Normal 74-106 [facility] Comment on above: Result Comment: Fast ing Glucose result from 100 to 125 mg/dLsuggests IMPAIRED HOMEOSTASIS per A.D.A. criteria. Performed By: #### L 500.2500 ####[facility] [address] [place], [address] Potassium [Moles/Vol] 4.2 mmol/L Normal 3.5-5.[address] [facility] Comment on above: Performed By: #### L 500.2500 ####[facility] [address] [place], [address] Sodium [Moles/Vol] 136 mmol/L Normal 136-145 [facility] Comment on above: Performed By: #### L 500.2500 ####[facility] [address] [place], [address] Urea nitrogen [Mass/Vol] 15 mg/dL Normal 7-[address] [facility] Comment on above: Performed By: #### L 500.2500 ####[facility] [address] [place], [address] CBC W/Diff, Automatedon 09-0 PATH REV Reviewed Normal [facility] Comment on above: Result Comment: Leuk ocytosis.Jorge Payan M.D. 04/24/24 AMENDED REPORT 09/05/24 1016 PATH REV previously reported as: December traci Performed By: #### L 300.4700, L300.4310, L100.0100 ####[facility] [address] [place], [address] SMEAR COMMENT SCANNED Normal [facility] Comment on above: Result Comment: `MON OCYTOSIS PRESENT Performed By: #### L 300.4310, L300.4700, L100.0100 ####[facility] [address] [place], [address] CBC-Complete Blood Cnt No Di ffon 04-24-2024 HCT Normal 40-[address] [facility] Comment on above: Result Comment: DUPL ICATE- SEE H60 Performed By: #### L 100.0500 ####[facility] [address] [place], [address] HGB Normal 13.0-16.[address] [facility] Comment on above: Result Comment: DUPL ICATE- SEE H60 Performed By: #### L 100.0500 ####[facility] [address] [place], [address] MCH Normal 27.0-32.[address] [facility] Comment on above: Result Comment: DUPL ICATE- SEE H60 Performed By: #### L 100.0500 ####[facility] [address] [place], [address] MCHC Normal 32-[address] [facility] Comment on above: Result Comment: DUPL ICATE- SEE H60 Performed By: #### L 100.0500 ####[facility] [address] [place], [address] MCV Normal 80-[address] [facility] Comment on above: Result Comment: DUPL ICATE- SEE H60 Performed By: #### L 100.0500 ####[facility] [address] [place], [address] PLT Normal 150-[address] [facility] Comment on above: Result Comment: DUPL ICATE- SEE H60 Performed By: #### L 100.0500 ####[facility] [address] [place], [address] RBC Normal 4.6-6.[address] [facility] Comment on above: Result Comment: DUPL ICATE- SEE H60 Performed By: #### L 100.0500 ####[facility] [address] [place], [address] RDW CV Normal 11.6-14.[address] [facility] Comment on above: Result Comment: DUPL ICATE- SEE H60 Performed By: #### L 100.0500 ####[facility] [address] [place], [address] RDW SD Normal 35.1-43.[address] [facility] Comment on above: Result Comment: DUPL ICATE- SEE H60 Performed By: #### L 100.0500 ####[facility] [address] [place], [address] WBC Normal 4.4-11.[address] [facility] Comment on above: Result Comment: DUPL ICATE- SEE H60 Performed By: #### L 100.0500 ####[facility] [address] [place], [address] Fibrinogenon 04-24-2024 FIBRINOGEN 538 mg/dl High 203-[address] [facility] Comment on above: Performed By: #### L 300.4310, L300.4700, L100.0100 ####[facility] [address] [place], [address] FIBRINOGEN 561 mg/dl High 203-[address] [facility] Comment on above: Performed By: #### L 300.4700, L300.4310, L100.0100 ####[facility] [address] [place], [address] Operative Reporton Operative Report Normal [facility] Partial Thromboplast Timeon 04-24-2024 aPTT Coag (Bld) [Time] 110.8 s Invalid Interpretation Code 24.1-36.[address] [facility] Comment on above: Result Comment: CRIT ICAL VALUE VERIFIED. [facility]04/24/24 1603 Alisia Serrato.RESULTS READ BACK BY SAME . Performed By: #### L 300.4310 ####[facility] [address] [place], [address] aPTT Coag (Bld) [Time] 32.4 s Normal 24.1-36.[address] [facility] Comment on above: Performed By: #### L 300.4310, L300.4700, L100.0100 ####[facility] [address] [place], [address] aPTT Coag (Bld) [Time] 31.1 s Normal 24.1-36.[address] [facility] Comment on above: Performed By: #### L 300.4700, L300.4310, L100.0100 ####[facility] [address] [place], [address] ACT Activated Clotting Timeo n 04-23-2024 ACTk CLOT TIME 171 sec High 74-[address] [facility] Comment on above: Performed By: #### L 9100.0100 ####[facility] [address] [place], [address] CBC W/Diff, Automatedon Absolute Lymph 1.40 X10 3/uL Normal 0.83-4.[address] [facility] Comment on above: Order Comment: VRI Performed By: #### L 300.4310, L300.4700, L100.0100 ####[facility] [address] [place], [address] Absolute Neut 9.1 X10 3/uL High 2.0-7.[address] [facility] Comment on above: Order Comment: VRI Performed By: #### L 300.4310, L300.4700, L100.0100 ####[facility] [address] [place], [address] Basophils/100 WBC (Bld) 0.5 % Normal 0-[address] [facility] Comment on above: Order Comment: VRI Performed By: #### L 300.4310, L300.4700, L100.0100 ####[facility] [address] [place], [address] Eosinophils/100 WBC (Bld) 0.6 % Normal 0-[address] [facility] Comment on above: Order Comment: VRI Performed By: #### L 300.4310, L300.4700, L100.0100 ####[facility] [address] [place], [address] Erythrocyte distribution width (RBC) [Ratio] 11.1 % Low 11.6-14.[address] [facility] Comment on above: Order Comment: VRI Performed By: #### L 300.4310, L300.4700, L100.0100 ####[facility] [address] [place], [address] Hematocrit (Bld) [Volume fraction] 34.1 % Low 40-[address] [facility] Comment on above: Order Comment: VRI Performed By: #### L 300.4310, L300.4700, L100.0100 ####[facility] [address] [place], [address] Hemoglobin (Bld) [Mass/Vol] 11.2 g/dL Low 13.0-16.[address] [facility] Comment on above: Order Comment: VRI Performed By: #### L 300.4310, L300.4700, L100.0100 ####[facility] [address] [place], [address] IG% 1.200 High 0.0-0.[address] [facility] Comment on above: Order Comment: VRI Result Comment: IG% - Immature Granulocytes (promyelocytes, myelocytes andmetamyelocytes) > 1% indicates that a LEFT SHIFT is Present. Performed By: #### L 300.4310, L300.4700, L100.0100 ####[facility] [address] [place], [address] Lymphocytes/100 WBC (Bld) 11.5 % Low 19-[address] [facility] Comment on above: Order Comment: VRI Performed By: #### L 300.4310, L300.4700, L100.0100 ####[facility] [address] [place], [address] MCH (RBC) [Entitic mass] 30.8 pg Normal 27.0-32.[address] [facility] Comment on above: Order Comment: VRI Performed By: #### L 300.4310, L300.4700, L100.0100 ####[facility] [address] [place], [address] MCHC (RBC) [Mass/Vol] 32.8 g/dL Normal 32-[address] [facility] Comment on above: Order Comment: VRI Performed By: #### L 300.4310, L300.4700, L100.0100 ####[facility] [address] [place], [address] MCV (RBC) [Entitic vol] 93.7 fL Normal 80-[address] [facility] Comment on above: Order Comment: VRI Performed By: #### L 300.4310, L300.4700, L100.0100 ####[facility] [address] [place], [address] Monocytes/100 WBC (Bld) 11.2 % High 0-[address] [facility] Comment on above: Order Comment: VRI Performed By: #### L 300.4310, L300.4700, L100.0100 ####[facility] [address] [place], [address] Neutrophils/100 WBC (Bld) 75.0 % High 47-[address] [facility] Comment on above: Order Comment: VRI Performed By: #### L 300.4310, L300.4700, L100.0100 ####[facility] [address] [place], [address] Nucleated RBC (Bld) [#/Vol] 0 10*3/uL Normal 0-[address] [facility] Comment on above: Order Comment: VRI Performed By: #### L 300.4310, L300.4700, L100.0100 ####[facility] [address] [place], [address] Platelet mean volume (Bld) [Entitic vol] 9.4 fL Normal 6.2-12.[address] [facility] Comment on above: Order Comment: VRI Performed By: #### L 300.4310, L300.4700, L100.0100 ####[facility] [address] [place], [address] Platelets (Bld) [#/Vol] 335 10*3/uL Normal 150-[address] [facility] Comment on above: Order Comment: VRI Performed By: #### L 300.4310, L300.4700, L100.0100 ####[facility] [address] [place], [address] RBC (Bld) [#/Vol] 3.64 10*6/uL Low 4.6-6.2 [facility] Comment on above: Order Comment: VRI Performed By: #### L 300.4310, L300.4700, L100.0100 ####[facility] [address] [place], [address] RDW SD 37.8 fl Normal 35.1-43.[address] [facility] Comment on above: Order Comment: VRI Performed By: #### L 300.4310, L300.4700, L100.0100 ####[facility] [address] [place], [address] WBC (Bld) [#/Vol] 12.2 10*3/uL High 4.4-11.0 [facility] Comment on above: Order Comment: VRI Performed By: #### L 300.4310, L300.4700, L100.0100 ####[facility] [address] [place], [address] CBC-Complete Blood Cnt No Di ffon 04-23-2024 Erythrocyte distribution width (RBC) [Ratio] 11.0 % Low 11.6-14.[address] [facility] Comment on above: Performed By: #### L 100.0500 ####[facility] [address] [place], [address] Hematocrit (Bld) [Volume fraction] 33.5 % Low 40-[address] [facility] Comment on above: Performed By: #### L 100.0500 ####[facility] [address] [place], [address] Hemoglobin (Bld) [Mass/Vol] 11.6 g/dL Low 13.0-16.[address] [facility] Comment on above: Performed By: #### L 100.0500 ####[facility] [address] [place], [address] MCH (RBC) [Entitic mass] 32.1 pg High 27.0-32.[address] [facility] Comment on above: Performed By: #### L 100.0500 ####[facility] [address] [place], [address] MCHC (RBC) [Mass/Vol] 34.6 g/dL Normal 32-[address] [facility] Comment on above: Performed By: #### L 100.0500 ####[facility] [address] [place], [address] MCV (RBC) [Entitic vol] 92.8 fL Normal 80-[address] [facility] Comment on above: Performed By: #### L 100.0500 ####[facility] [address] [place], [address] Platelet mean volume (Bld) [Entitic vol] 9.6 fL Normal 6.2-12.[address] [facility] Comment on above: Performed By: #### L 100.0500 ####[facility] [address] [place], [address] Platelets (Bld) [#/Vol] 354 10*3/uL Normal 150-[address] [facility] Comment on above: Performed By: #### L 100.0500 ####[facility] [address] [place], [address] RBC (Bld) [#/Vol] 3.61 10*6/uL Low 4.6-6.2 [facility] Comment on above: Performed By: #### L 100.0500 ####[facility] [address] [place], [address] RDW SD 37.5 fl Normal 35.1-43.[address] [facility] Comment on above: Performed By: #### L 100.0500 ####[facility] [address] [place], [address] WBC (Bld) [#/Vol] 10.0 10*3/uL Normal 4.4-11.0 [facility] Comment on above: Performed By: #### L 100.0500 ####[facility] [address] [place], [address] Fibrinogenon 04-23-2024 FIBRINOGEN 886 mg/dl High 203-[address] [facility] Comment on above: Performed By: #### L 300.4310, L300.4700, L100.0100 ####[facility] [address] [place], [address] Operative Reporton Operative Report Normal [facility] Partial Thromboplast Timeon 04-23-2024 aPTT Coag (Bld) [Time] 44.5 s High 24.1-36.[address] [facility] Comment on above: Performed By: #### L 300.4310, L300.4700, L100.0100 ####[facility] [address] [place], [address] aPTT Coag (Bld) [Time] 58.9 s High 24.1-36.[address] [facility] Comment on above: Performed By: #### L 300.4310 ####[facility] [address] [place], [address] 12 Lead EKGon 04-22-2024 12 Lead EKG Normal [facility] Basic Metabolic Profile (BMP )on 04-22-2024 BUN/CRE 15.5 RATIO Normal 10-[address] [facility] Comment on above: Performed By: #### L 500.3400, L500.2500, L300.3900 ####[facility] [address] [place], [address] CA,Total 9.4 mg/dL Normal 8.5-10.[address] [facility] Comment on above: Performed By: #### L 500.3400, L500.2500, L300.3900 ####[facility] [address] [place], [address] Chloride [Moles/Vol] 103 mmol/L Normal 98-107 [facility] Comment on above: Performed By: #### L 500.3400, L500.2500, L300.3900 ####[facility] [address] [place], [address] CO2 [Moles/Vol] 24.0 mmol/L Normal 21.0-32.[address] [facility] Comment on above: Performed By: #### L 500.3400, L500.2500, L300.3900 ####[facility] [address] [place], [address] Creatinine [Mass/Vol] 0.71 mg/dL Normal 0.70-1.[address] [facility] Comment on above: Result Comment: The validity of the calculated GFR GFRAA in patients over70 years has not been determined. Clinical correlation isessential. Performed By: #### L 500.3400, L500.2500, L300.3900 ####[facility] [address] [place], [address] ECRCL 225.34 ml/min Normal [facility] Comment on above: Performed By: #### L 500.3400, L500.2500, L300.3900 ####[facility] [address] [place], [address] EST GFR - AA 164 mL/min Normal >[address] [facility] Comment on above: Result Comment: Afri can [place] GFR Calc Performed By: #### L 500.3400, L500.2500, L300.3900 ####[facility] [address] [place], [address] GAP 8 Normal 5-[address] [facility] Comment on above: Performed By: #### L 500.3400, L500.2500, L300.3900 ####[facility] [address] [place], [address] GFR/1.73 sq M.predicted among non-blacks MDRD (S/P/Bld) [Vol rate/Area] 136 mL/min/{1.73_m2} Normal >[address] [facility] Comment on above: Result Comment: Non- GFR Calc Performed By: #### L 500.3400, L500.2500, L300.3900 ####[facility] [address] [place], [address] Glucose [Mass/Vol] 96 mg/dL Normal 74-106 [facility] Comment on above: Performed By: #### L 500.3400, L500.2500, L300.3900 ####[facility] [address] [place], [address] Potassium [Moles/Vol] 4.2 mmol/L Normal 3.5-5.[address] [facility] Comment on above: Performed By: #### L 500.3400, L500.2500, L300.3900 ####[facility] [address] [place], [address] Sodium [Moles/Vol] 135 mmol/L Low 136-145 [facility] Comment on above: Performed By: #### L 500.3400, L500.2500, L300.3900 ####[facility] [address] [place], [address] Urea nitrogen [Mass/Vol] 11 mg/dL Normal 7-[address] [facility] Comment on above: Performed By: #### L 500.3400, L500.2500, L300.3900 ####[facility] [address] [place], [address] CBC-Complete Blood Cnt No Di ffon 04-22-2024 Erythrocyte distribution width (RBC) [Ratio] 10.9 % Low 11.6-14.[address] [facility] Comment on above: Performed By: #### L 100.0500 ####[facility] [address] [place], [address] Hematocrit (Bld) [Volume fraction] 34.7 % Low 40-[address] [facility] Comment on above: Performed By: #### L 100.0500 ####[facility] [address] [place], [address] Hemoglobin (Bld) [Mass/Vol] 11.6 g/dL Low 13.0-16.[address] [facility] Comment on above: Performed By: #### L 100.0500 ####[facility] [address] [place], [address] MCH (RBC) [Entitic mass] 31.4 pg Normal 27.0-32.[address] [facility] Comment on above: Performed By: #### L 100.0500 ####[facility] [address] [place], [address] MCHC (RBC) [Mass/Vol] 33.4 g/dL Normal 32-[address] [facility] Comment on above: Performed By: #### L 100.0500 ####[facility] [address] [place], [address] MCV (RBC) [Entitic vol] 93.8 fL Normal 80-[address] [facility] Comment on above: Performed By: #### L 100.0500 ####[facility] [address] [place], [address] Platelet mean volume (Bld) [Entitic vol] 9.8 fL Normal 6.2-12.[address] [facility] Comment on above: Performed By: #### L 100.0500 ####[facility] [address] [place], [address] Platelets (Bld) [#/Vol] 373 10*3/uL Normal 150-[address] [facility] Comment on above: Performed By: #### L 100.0500 ####[facility] [address] [place], [address] RBC (Bld) [#/Vol] 3.70 10*6/uL Low 4.6-6.2 [facility] Comment on above: Performed By: #### L 100.0500 ####[facility] [address] [place], [address] RDW SD 37.1 fl Normal 35.1-43.[address] [facility] Comment on above: Performed By: #### L 100.0500 ####[facility] [address] [place], [address] WBC (Bld) [#/Vol] 11.7 10*3/uL High 4.4-11.0 [facility] Comment on above: Performed By: #### L 100.0500 ####[facility] [address] [place], [address] Liver Profileon 04-22-2024 Albumin [Mass/Vol] 2.5 g/dL Low 3.2-5.0 [facility] Comment on above: Performed By: #### L 500.3400, L500.2500, L300.3900 ####[facility] [address] [place], [address] ALK P 98 U/L Normal 45-[address] [facility] Comment on above: Performed By: #### L 500.3400, L500.2500, L300.3900 ####[facility] [address] [place], [address] ALT [Catalytic activity/Vol] 54 U/L Normal 16-[address] [facility] Comment on above: Performed By: #### L 500.3400, L500.2500, L300.3900 ####[facility] [address] [place], [address] AST [Catalytic activity/Vol] 15 U/L Normal 15-[address] [facility] Comment on above: Performed By: #### L 500.3400, L500.2500, L300.3900 ####[facility] [address] [place], [address] Bilirubin [Mass/Vol] 0.40 mg/dL Normal 0.20-1.00 [facility] Comment on above: Result Comment: For patients on eltrombopag therapy, use of [place] TBIL is not recommended. Performed By: #### L 500.3400, L500.2500, L300.3900 ####[facility] [address] [place], [address] Bilirubin.direct [Mass/Vol] 0.11 mg/dL Normal 0.00-0.[address] [facility] Comment on above: Performed By: #### L 500.3400, L500.2500, L300.3900 ####[facility] [address] [place], [address] Globulin (S) [Mass/Vol] 5.3 g/dL High 2.2-4.[address] [facility] Comment on above: Performed By: #### L 500.3400, L500.2500, L300.3900 ####[facility] [address] [place], [address] T PROT 7.8 g/dL Normal 6.4-8.[address] [facility] Comment on above: Performed By: #### L 500.3400, L500.2500, L300.3900 ####[facility] [address] [place], [address] Partial Thromboplast Timeon 04-22-2024 aPTT Coag (Bld) [Time] 65.0 s High 24.1-36.[address] [facility] Comment on above: Order Comment: DRAW WITH MORNING LABS PER NURSE Performed By: #### L 300.4310 ####[facility] [address] [place], [address] Prothrombin Time w/INRon INR Coag (PPP) [Relative time] 1.1 {INR} Normal [facility] Comment on above: Performed By: #### L 500.3400, L500.2500, L300.3900 ####[facility] [address] [place], [address] PT Coag (PPP) [Time] 13.8 s Normal 11.7-14.9 [facility] Comment on above: Performed By: #### L 500.3400, L500.2500, L300.3900 ####[facility] [address] [place], [address] CBC-Complete Blood Cnt No Di ffon 04-21-2024 Erythrocyte distribution width (RBC) [Ratio] 11.1 % Low 11.6-14.[address] [facility] Comment on above: Performed By: #### L 100.0500 ####[facility] [address] [place], [address] Hematocrit (Bld) [Volume fraction] 34.5 % Low 40-[address] [facility] Comment on above: Performed By: #### L 100.0500 ####[facility] [address] [place], [address] Hemoglobin (Bld) [Mass/Vol] 11.3 g/dL Low 13.0-16.[address] [facility] Comment on above: Performed By: #### L 100.0500 ####[facility] [address] [place], [address] MCH (RBC) [Entitic mass] 31.2 pg Normal 27.0-32.[address] [facility] Comment on above: Performed By: #### L 100.0500 ####[facility] [address] [place], [address] MCHC (RBC) [Mass/Vol] 32.8 g/dL Normal 32-[address] [facility] Comment on above: Performed By: #### L 100.0500 ####[facility] [address] [place], [address] MCV (RBC) [Entitic vol] 95.3 fL High 80-[address] [facility] Comment on above: Performed By: #### L 100.0500 ####[facility] [address] [place], [address] Platelet mean volume (Bld) [Entitic vol] 9.5 fL Normal 6.2-12.[address] [facility] Comment on above: Performed By: #### L 100.0500 ####[facility] [address] [place], [address] Platelets (Bld) [#/Vol] 312 10*3/uL Normal 150-[address] [facility] Comment on above: Performed By: #### L 100.0500 ####[facility] [address] [place], [address] RBC (Bld) [#/Vol] 3.62 10*6/uL Low 4.6-6.2 [facility] Comment on above: Performed By: #### L 100.0500 ####[facility] [address] [place], [address] RDW SD 38.6 fl Normal 35.1-43.[address] [facility] Comment on above: Performed By: #### L 100.0500 ####[facility] [address] [place], [address] WBC (Bld) [#/Vol] 9.0 10*3/uL Normal 4.4-11.0 [facility] Comment on above: Performed By: #### L 100.0500 ####[facility] [address] [place], [address] Partial Thromboplast Timeon 04-21-2024 aPTT Coag (Bld) [Time] 69.7 s High 24.1-36.[address] [facility] Comment on above: Performed By: #### L 300.4310 ####[facility] [address] [place], [address] aPTT Coag (Bld) [Time] 76.1 s High 24.1-36.[address] [facility] Comment on above: Performed By: #### L 300.4310 ####[facility] [address] [place], [address] CBC W/Diff, Automatedon 09-0 -2023 Absolute Lymph 2.06 X10 3/uL Normal 0.83-4.[address] [facility] Comment on above: Order Comment: Comme nts: ordered per policy with hep gttADDED ON PER NURSE EDELMIRA Performed By: #### L 100.0100 ####[facility] [address] [place], [address] Absolute Neut 6.1 X10 3/uL Normal 2.0-7.[address] [facility] Comment on above: Order Comment: Comme nts: ordered per policy with hep gttADDED ON PER NURSE EDELMIRA Performed By: #### L 100.0100 ####[facility] [address] [place], [address] Basophils/100 WBC (Bld) 0.5 % Normal 0-[address] [facility] Comment on above: Order Comment: Comme nts: ordered per policy with hep gttADDED ON PER NURSE EDELMIRA Performed By: #### L 100.0100 ####[facility] [address] [place], [address] Eosinophils/100 WBC (Bld) 3.1 % Normal 0-[address] [facility] Comment on above: Order Comment: Comme nts: ordered per policy with hep gttADDED ON PER NURSE EDELMIRA Performed By: #### L 100.0100 ####[facility] [address] [place], [address] Erythrocyte distribution width (RBC) [Ratio] 11.1 % Low 11.6-14.[address] [facility] Comment on above: Order Comment: Comme nts: ordered per policy with hep gttADDED ON PER NURSE EDELMIRA Performed By: #### L 100.0100 ####[facility] [address] [place], [address] Hematocrit (Bld) [Volume fraction] 33.3 % Low 40-[address] [facility] Comment on above: Order Comment: Comme nts: ordered per policy with hep gttADDED ON PER NURSE EDELMIRA Performed By: #### L 100.0100 ####[facility] [address] [place], [address] Hemoglobin (Bld) [Mass/Vol] 11.2 g/dL Low 13.0-16.[address] [facility] Comment on above: Order Comment: Comme nts: ordered per policy with hep gttADDED ON PER NURSE EDELMIRA Performed By: #### L 100.0100 ####[facility] [address] [place], [address] IG% 0.700 Normal 0.0-0.[address] [facility] Comment on above: Order Comment: Comme nts: ordered per policy with hep gttADDED ON PER NURSE EDELMIRA Result Comment: IG% - Immature Granulocytes (promyelocytes, myelocytes andmetamyelocytes) > 1% indicates that a LEFT SHIFT is Present. Performed By: #### L 100.0100 ####[facility] [address] [place], [address] Lymphocytes/100 WBC (Bld) 20.7 % Normal 19-[address] [facility] Comment on above: Order Comment: Comme nts: ordered per policy with hep gttADDED ON PER NURSE EDELMIRA Performed By: #### L 100.0100 ####[facility] [address] [place], [address] MCH (RBC) [Entitic mass] 31.5 pg Normal 27.0-32.[address] [facility] Comment on above: Order Comment: Comme nts: ordered per policy with hep gttADDED ON PER NURSE EDELMIRA Performed By: #### L 100.0100 ####[facility] [address] [place], [address] MCHC (RBC) [Mass/Vol] 33.6 g/dL Normal 32-[address] [facility] Comment on above: Order Comment: Comme nts: ordered per policy with hep gttADDED ON PER NURSE EDELMIRA Performed By: #### L 100.0100 ####[facility] [address] [place], [address] MCV (RBC) [Entitic vol] 93.8 fL Normal 80-[address] [facility] Comment on above: Order Comment: Comme nts: ordered per policy with hep gttADDED ON PER NURSE EDELMIRA Performed By: #### L 100.0100 ####[facility] [address] [place], [address] Monocytes/100 WBC (Bld) 13.5 % High 0-[address] [facility] Comment on above: Order Comment: Comme nts: ordered per policy with hep gttADDED ON PER NURSE EDELMIRA Performed By: #### L 100.0100 ####[facility] [address] [place], [address] Neutrophils/100 WBC (Bld) 61.5 % Normal 47-[address] [facility] Comment on above: Order Comment: Comme nts: ordered per policy with hep gttADDED ON PER NURSE EDELMIRA Performed By: #### L 100.0100 ####[facility] [address] [place], [address] Nucleated RBC (Bld) [#/Vol] 0 10*3/uL Normal 0-[address] [facility] Comment on above: Order Comment: Comme nts: ordered per policy with hep gttADDED ON PER NURSE EDELMIRA Performed By: #### L 100.0100 ####[facility] [address] [place], [address] Platelet mean volume (Bld) [Entitic vol] 10.4 fL Normal 6.2-12.[address] [facility] Comment on above: Order Comment: Comme nts: ordered per policy with hep gttADDED ON PER NURSE EDELMIRA Performed By: #### L 100.0100 ####[facility] [address] [place], [address] Platelets (Bld) [#/Vol] 310 10*3/uL Normal 150-[address] [facility] Comment on above: Order Comment: Comme nts: ordered per policy with hep gttADDED ON PER NURSE EDELMIRA Performed By: #### L 100.0100 ####[facility] [address] [place], [address] RBC (Bld) [#/Vol] 3.55 10*6/uL Low 4.6-6.2 [facility] Comment on above: Order Comment: Comme nts: ordered per policy with hep gttADDED ON PER NURSE EDELMIRA Performed By: #### L 100.0100 ####[facility] [address] [place], [address] RDW SD 38.0 fl Normal 35.1-43.[address] [facility] Comment on above: Order Comment: Comme nts: ordered per policy with hep gttADDED ON PER NURSE EDELMIRA Performed By: #### L 100.0100 ####[facility] [address] [place], [address] WBC (Bld) [#/Vol] 10.0 10*3/uL Normal 4.4-11.0 [facility] Comment on above: Order Comment: Comme nts: ordered per policy with hep gttADDED ON PER NURSE EDELMIRA Performed By: #### L 100.0100 ####[facility] [address] [place], [address] Partial Thromboplast Timeon 04-20-2024 aPTT Coag (Bld) [Time] 54.2 s High 24.1-36.[address] [facility] Comment on above: Order Comment: Comme nts: time sensitive hep gtt Performed By: #### L 300.4310 ####[facility] [address] [place], [address] aPTT Coag (Bld) [Time] 52.9 s High 24.1-36.[address] [facility] Comment on above: Order Comment: Comme nts: time sensitive Performed By: #### L 300.4310 ####[facility] [address] [place], [address] aPTT Coag (Bld) [Time] 59.6 s High 24.1-36.[address] [facility] Comment on above: Order Comment: Comme nts: heparin drip- time sensitive Performed By: #### L 300.4310 ####[facility] [address] [place], [address] aPTT Coag (Bld) [Time] 37.0 s High 24.1-36.[address] [facility] Comment on above: Order Comment: Comme nts: heparin drip0 time sensitive Performed By: #### L 300.4310 ####[facility] [address] [place], [address] Partial Thromboplast Timeon 04-19-2024 aPTT Coag (Bld) [Time] 55.4 s High 24.1-36.[address] [facility] Comment on above: Order Comment: Comme nts: time sensitive hep gtt Performed By: #### L 300.4310 ####[facility] [address] [place], [address] aPTT Coag (Bld) [Time] 44.6 s High 24.1-36.[address] [facility] Comment on above: Order Comment: Comme nts: time sensitive hep gtt Performed By: #### L 300.4310 ####[facility] [address] [place], [address] aPTT Coag (Bld) [Time] 48.5 s High 24.1-36.[address] [facility] Comment on above: Performed By: #### L 300.4310 ####[facility] [address] [place], [address] aPTT Coag (Bld) [Time] 42.4 s High 24.1-36.[address] [facility] Comment on above: Order Comment: Comme nts: heparin gtt- time sensitive Performed By: #### L 300.4310 ####[facility] [address] [place], [address] Basic Metabolic Profile (BMP )on 04-18-2024 BUN/CRE 19.0 RATIO Normal 10-[address] [facility] Comment on above: Performed By: #### L 500.2500, L100.0100 ####[facility] [address] [place], [address] CA,Total 9.1 mg/dL Normal 8.5-10.[address] [facility] Comment on above: Performed By: #### L 500.2500, L100.0100 ####[facility] [address] [place], [address] Chloride [Moles/Vol] 105 mmol/L Normal 98-107 [facility] Comment on above: Performed By: #### L 500.2500, L100.0100 ####[facility] [address] [place], [address] CO2 [Moles/Vol] 24.0 mmol/L Normal 21.0-32.[address] [facility] Comment on above: Performed By: #### L 500.2500, L100.0100 ####[facility] [address] [place], [address] Creatinine [Mass/Vol] 0.68 mg/dL Low 0.70-1.[address] [facility] Comment on above: Result Comment: The validity of the calculated GFR GFRAA in patients over70 years has not been determined. Clinical correlation isessential. Performed By: #### L 500.2500, L100.0100 ####[facility] [address] [place], [address] ECRCL 234.85 ml/min Normal [facility] Comment on above: Performed By: #### L 500.2500, L100.0100 ####[facility] [address] [place], [address] EST GFR - AA 171 mL/min Normal >[address] [facility] Comment on above: Result Comment: Afri can [place] GFR Calc Performed By: #### L 500.2500, L100.0100 ####[facility] [address] [place], [address] GAP 7 Normal 5-[address] [facility] Comment on above: Performed By: #### L 500.2500, L100.0100 ####[facility] [address] [place], [address] GFR/1.73 sq M.predicted among non-blacks MDRD (S/P/Bld) [Vol rate/Area] 141 mL/min/{1.73_m2} Normal >[address] [facility] Comment on above: Result Comment: Non- GFR Calc Performed By: #### L 500.2500, L100.0100 ####[facility] [address] [place], [address] Glucose [Mass/Vol] 116 mg/dL High 74-106 [facility] Comment on above: Result Comment: Fast ing Glucose result from 100 to 125 mg/dLsuggests IMPAIRED HOMEOSTASIS per A.D.A. criteria. Performed By: #### L 500.2500, L100.0100 ####[facility] [address] [place], [address] Potassium [Moles/Vol] 3.4 mmol/L Low 3.5-5.[address] [facility] Comment on above: Performed By: #### L 500.2500, L100.0100 ####[facility] [address] [place], [address] Sodium [Moles/Vol] 136 mmol/L Normal 136-145 [facility] Comment on above: Performed By: #### L 500.2500, L100.0100 ####[facility] [address] [place], [address] Urea nitrogen [Mass/Vol] 13 mg/dL Normal 7-[address] [facility] Comment on above: Performed By: #### L 500.2500, L100.0100 ####[facility] [address] [place], [address] CBC W/Diff, Automatedon 08-3 0-2023 Absolute Lymph 1.56 X10 3/uL Normal 0.83-4.[address] [facility] Comment on above: Performed By: #### L 500.2500, L100.0100 ####[facility] [address] [place], [address] Absolute Neut 5.3 X10 3/uL Normal 2.0-7.[address] [facility] Comment on above: Performed By: #### L 500.2500, L100.0100 ####[facility] [address] [place], [address] Basophils/100 WBC (Bld) 0.5 % Normal 0-[address] [facility] Comment on above: Performed By: #### L 500.2500, L100.0100 ####[facility] [address] [place], [address] Eosinophils/100 WBC (Bld) 3.4 % Normal 0-[address] [facility] Comment on above: Performed By: #### L 500.2500, L100.0100 ####[facility] [address] [place], [address] Erythrocyte distribution width (RBC) [Ratio] 11.3 % Low 11.6-14.[address] [facility] Comment on above: Performed By: #### L 500.2500, L100.0100 ####[facility] [address] [place], [address] Hematocrit (Bld) [Volume fraction] 34.0 % Low 40-[address] [facility] Comment on above: Performed By: #### L 500.2500, L100.0100 ####[facility] [address] [place], [address] Hemoglobin (Bld) [Mass/Vol] 11.5 g/dL Low 13.0-16.[address] [facility] Comment on above: Performed By: #### L 500.2500, L100.0100 ####[facility] [address] [place], [address] IG% 0.600 Normal 0.0-0.[address] [facility] Comment on above: Result Comment: IG% - Immature Granulocytes (promyelocytes, myelocytes andmetamyelocytes) > 1% indicates that a LEFT SHIFT is Present. Performed By: #### L 500.2500, L100.0100 ####[facility] [address] [place], [address] Lymphocytes/100 WBC (Bld) 18.2 % Low 19-[address] [facility] Comment on above: Performed By: #### L 500.2500, L100.0100 ####[facility] [address] [place], [address] MCH (RBC) [Entitic mass] 31.3 pg Normal 27.0-32.[address] [facility] Comment on above: Performed By: #### L 500.2500, L100.0100 ####[facility] [address] [place], [address] MCHC (RBC) [Mass/Vol] 33.8 g/dL Normal 32-[address] [facility] Comment on above: Performed By: #### L 500.2500, L100.0100 ####[facility] [address] [place], [address] MCV (RBC) [Entitic vol] 92.6 fL Normal 80-[address] [facility] Comment on above: Performed By: #### L 500.2500, L100.0100 ####[facility] [address] [place], [address] Monocytes/100 WBC (Bld) 16.0 % High 0-[address] [facility] Comment on above: Performed By: #### L 500.2500, L100.0100 ####[facility] [address] [place], [address] Neutrophils/100 WBC (Bld) 61.3 % Normal 47-[address] [facility] Comment on above: Performed By: #### L 500.2500, L100.0100 ####[facility] [address] [place], [address] Nucleated RBC (Bld) [#/Vol] 0 10*3/uL Normal 0-[address] [facility] Comment on above: Performed By: #### L 500.2500, L100.0100 ####[facility] [address] [place], [address] Platelet mean volume (Bld) [Entitic vol] 9.9 fL Normal 6.2-12.[address] [facility] Comment on above: Performed By: #### L 500.2500, L100.0100 ####[facility] [address] [place], [address] Platelets (Bld) [#/Vol] 264 10*3/uL Normal 150-[address] [facility] Comment on above: Performed By: #### L 500.2500, L100.0100 ####[facility] [address] [place], [address] RBC (Bld) [#/Vol] 3.67 10*6/uL Low 4.6-6.2 [facility] Comment on above: Performed By: #### L 500.2500, L100.0100 ####[facility] [address] [place], [address] RDW SD 38.5 fl Normal 35.1-43.[address] [facility] Comment on above: Performed By: #### L 500.2500, L100.0100 ####[facility] [address] [place], [address] WBC (Bld) [#/Vol] 8.6 10*3/uL Normal 4.4-11.0 [facility] Comment on above: Performed By: #### L 500.2500, L100.0100 ####[facility] [address] [place], [address] Partial Thromboplast Timeon 04-18-2024 aPTT Coag (Bld) [Time] 40.7 s High 24.1-36.[address] [facility] Comment on above: Order Comment: Comme nts: HEPARIN GTT Performed By: #### L 300.4310 ####[facility] [address] [place], [address] aPTT Coag (Bld) [Time] 35.1 s Normal 24.1-36.[address] [facility] Comment on above: Performed By: #### L 300.4310 ####[facility] [address] [place], [address] aPTT Coag (Bld) [Time] 42.2 s High 24.1-36.[address] [facility] Comment on above: Performed By: #### L 300.4310 ####[facility] [address] [place], [address] MR/BMS.BVSon 04-17-2024 MR/BMS.BVS Normal [facility] Partial Thromboplast Timeon 04-17-2024 aPTT Coag (Bld) [Time] 37.4 s High 24.1-36.[address] [facility] Comment on above: Order Comment: Comme nts: Baseline heparin labs Performed By: #### L 300.4310 ####[facility] [address] [place], [address] Abd Aortic/IVC Duplex scanon 04-16-2024 Abd Aortic/IVC Duplex scan Normal [facility] Venous Duplex US - Noah Extre mon 04-16-2024 Venous Duplex US - Noah Extrem Normal [facility] CBC W/Diff, Automatedon 03-21 PATH REV Reviewed Normal [facility] Comment on above: Result Comment: Neut rophilic leukocytosis.Clinical correlation suggested.Poncho Cruz D.O. 04/14/24 AMENDED REPORT 04/14/24 1151 PATH REV previously reported as: December traci Performed By: #### L 500.4050, L100.0100 ####[facility] [address] [place], [address] Abdomen/Pelvis W IV Cont ONL Yon 04-13-2024 Abdomen/Pelvis W IV Cont ONLY Normal [facility] Basic Metabolic Profile (BMP )on 04-13-2024 BUN/CRE 16.0 RATIO Normal 10-[address] [facility] Comment on above: Performed By: #### L 500.3400, L500.2500, L501.2450 ####[facility] [address] [place], [address] CA,Total 9.5 mg/dL Normal 8.5-10.[address] [facility] Comment on above: Performed By: #### L 500.3400, L500.2500, L501.2450 ####[facility] [address] [place], [address] Chloride [Moles/Vol] 104 mmol/L Normal 98-107 [facility] Comment on above: Performed By: #### L 500.3400, L500.2500, L501.2450 ####[facility] [address] [place], [address] CO2 [Moles/Vol] 21.0 mmol/L Normal 21.0-32.[address] [facility] Comment on above: Performed By: #### L 500.3400, L500.2500, L501.2450 ####[facility] [address] [place], [address] Creatinine [Mass/Vol] 1.00 mg/dL Normal 0.70-1.[address] [facility] Comment on above: Result Comment: The validity of the calculated GFR GFRAA in patients over70 years has not been determined. Clinical correlation isessential. Performed By: #### L 500.3400, L500.2500, L501.2450 ####[facility] [address] [place], [address] EST GFR - AA 110 mL/min Normal >[address] [facility] Comment on above: Result Comment: Afri can [place] GFR Calc Performed By: #### L 500.3400, L500.2500, L501.2450 ####[facility] [address] [place], [address] GAP 11 Normal 5-[address] [facility] Comment on above: Performed By: #### L 500.3400, L500.2500, L501.2450 ####[facility] [address] [place], [address] GFR/1.73 sq M.predicted among non-blacks MDRD (S/P/Bld) [Vol rate/Area] 91 mL/min/{1.73_m2} Normal >[address] [facility] Comment on above: Result Comment: Non- GFR Calc Performed By: #### L 500.3400, L500.2500, L501.2450 ####[facility] [address] [place], [address] Glucose [Mass/Vol] 106 mg/dL Normal 74-106 [facility] Comment on above: Result Comment: Fast ing Glucose result from 100 to 125 mg/dLsuggests IMPAIRED HOMEOSTASIS per A.D.A. criteria. Performed By: #### L 500.3400, L500.2500, L501.2450 ####[facility] [address] [place], [address] Potassium [Moles/Vol] 3.4 mmol/L Low 3.5-5.[address] [facility] Comment on above: Performed By: #### L 500.3400, L500.2500, L501.2450 ####[facility] [address] [place], [address] Sodium [Moles/Vol] 136 mmol/L Normal 136-145 [facility] Comment on above: Performed By: #### L 500.3400, L500.2500, L501.2450 ####[facility] [address] [place], [address] Urea nitrogen [Mass/Vol] 16 mg/dL Normal 7-[address] [facility] Comment on above: Performed By: #### L 500.3400, L500.2500, L501.2450 ####[facility] [address] [place], [address] Comprehensive Metabolic Prof ilon 04-13-2024 ALB Normal 3.2-5.[address] [facility] Comment on above: Result Comment: Sg amaro via OM: Ordered Performed By: #### L 500.4050, L100.0100 ####[facility] [address] [place], [address] ALK P Normal 45-[address] [facility] Comment on above: Result Comment: Sg amaro via OM: Ordered Performed By: #### L 500.4050, L100.0100 ####[facility] [address] [place], [address] ALT Normal 16-[address] [facility] Comment on above: Result Comment: Canc elled via OM: MD Ordered Performed By: #### L 500.4050, L100.0100 ####[facility] [address] [place], [address] AST Normal 15-[address] [facility] Comment on above: Result Comment: Canc elled via OM: MD Ordered Performed By: #### L 500.4050, L100.0100 ####[facility] [address] [place], [address] BUN Normal 7-[address] [facility] Comment on above: Result Comment: Canc elled via OM: MD Ordered Performed By: #### L 500.4050, L100.0100 ####[facility] [address] [place], [address] BUN/CRE Normal 10-[address] [facility] Comment on above: Result Comment: Canc elled via OM: MD Ordered Performed By: #### L 500.4050, L100.0100 ####[facility] [address] [place], [address] CA,Total Normal 8.5-10.[address] [facility] Comment on above: Result Comment: Canc elled via OM: MD Ordered Performed By: #### L 500.4050, L100.0100 ####[facility] [address] [place], [address] CL Normal 98-[address] [facility] Comment on above: Result Comment: Canc elled via OM: MD Ordered Performed By: #### L 500.4050, L100.0100 ####[facility] [address] [place], [address] CO2 Normal 21.0-32.[address] [facility] Comment on above: Result Comment: Canc elled via OM: MD Ordered Performed By: #### L 500.4050, L100.0100 ####[facility] [address] [place], [address] CREAT,SERUM Normal 0.70-1.[address] [facility] Comment on above: Result Comment: Canc elled via OM: MD Ordered Performed By: #### L 500.4050, L100.0100 ####[facility] [address] [place], [address] EST GFR Normal >[address] [facility] Comment on above: Result Comment: Canc elled via OM: MD Ordered Performed By: #### L 500.4050, L100.0100 ####[facility] [address] [place], [address] EST GFR - AA Normal >[address] [facility] Comment on above: Result Comment: Canc elled via OM: MD Ordered Performed By: #### L 500.4050, L100.0100 ####[facility] [address] [place], [address] GAP Normal 5-[address] [facility] Comment on above: Result Comment: Canc elled via OM: MD Ordered Performed By: #### L 500.4050, L100.0100 ####[facility] [address] [place], [address] GLU Normal 74-[address] [facility] Comment on above: Result Comment: Canc elled via OM: MD Ordered Performed By: #### L 500.4050, L100.0100 ####[facility] [address] [place], [address] Potassium Normal 3.5-5.[address] [facility] Comment on above: Result Comment: Canc elled via OM: MD Ordered Performed By: #### L 500.4050, L100.0100 ####[facility] [address] [place], [address] T BILI Normal 0.20-1.[address] [facility] Comment on above: Result Comment: Canc elled via OM: MD Ordered Performed By: #### L 500.4050, L100.0100 ####[facility] [address] [place], [address] T PROT Normal 6.4-8.[address] [facility] Comment on above: Result Comment: Canc elled via OM: MD Ordered Performed By: #### L 500.4050, L100.0100 ####[facility] [address] [place], [address] Comprehensive Metabolic Profil Normal 136-[address] [facility] Comment on above: Result Comment: Canc elled via OM: MD Ordered Performed By: #### L 500.4050, L100.0100 ####[facility] [address] [place], [address] Emergency Department Summary on 04-13-2024 Emergency Department Summary Normal [facility] Lipaseon 04-13-2024 Lipase [Catalytic activity/Vol] 24 U/L Normal 13-[address] [facility] Comment on above: Result Comment: Sully ware note:LIPASE revised reference range effective 22.New Lipase methodology. Expected to produce lower valuesthan the previous assay method.NEW Reference Range: 13 - 75 U/L Performed By: #### L 500.3400, L500.2500, L501.2450 ####[facility] [address] [place], [address] Liver Profileon 04-13-2024 Albumin [Mass/Vol] 3.3 g/dL Normal 3.2-5.0 [facility] Comment on above: Performed By: #### L 500.3400, L500.2500, L501.2450 ####[facility] [address] [place], [address] ALK P 91 U/L Normal 45-[address] [facility] Comment on above: Performed By: #### L 500.3400, L500.2500, L501.2450 ####[facility] [address] [place], [address] ALT [Catalytic activity/Vol] 50 U/L Normal 16-[address] [facility] Comment on above: Performed By: #### L 500.3400, L500.2500, L501.2450 ####[facility] [address] [place], [address] AST [Catalytic activity/Vol] 18 U/L Normal 15-[address] [facility] Comment on above: Performed By: #### L 500.3400, L500.2500, L501.2450 ####[facility] [address] [place], [address] Bilirubin [Mass/Vol] 0.70 mg/dL Normal 0.20-1.00 [facility] Comment on above: Result Comment: For patients on eltrombopag therapy, use of Dimension [place] TBIL is not recommended. Performed By: #### L 500.3400, L500.2500, L501.2450 ####[facility] [address] [place], [address] Bilirubin.direct [Mass/Vol] 0.18 mg/dL Normal 0.00-0.[address] [facility] Comment on above: Performed By: #### L 500.3400, L500.2500, L501.2450 ####[facility] [address] [place], [address] Globulin (S) [Mass/Vol] 5.0 g/dL High 2.2-4.[address] [facility] Comment on above: Performed By: #### L 500.3400, L500.2500, L501.2450 ####[facility] [address] [place], [address] T PROT 8.3 g/dL High 6.4-8.[address] [facility] Comment on above: Performed By: #### L 500.3400, L500.2500, L501.2450 ####[facility] [address] [place], [address] Urinalysis, Completeon 04-13 BACTERIA 0 SEEN Normal None Seen [facility] Comment on above: Order Comment: CLEAN CATCH Performed By: #### L 400.0001 ####[facility] [address] [place], [address] EPI,SQUAMOUS 0 SEEN Normal 0-[address] [facility] Comment on above: Order Comment: CLEAN CATCH Performed By: #### L 400.0001 ####[facility] [address] [place], [address] Mucus Ql (Urine sed) 0 SEEN Normal [facility] Comment on above: Order Comment: CLEAN CATCH Performed By: #### L 400.0001 ####[facility] [address] [place], [address] RBC 0 SEEN Normal 0-[address] [facility] Comment on above: Order Comment: CLEAN CATCH Performed By: #### L 400.0001 ####[facility] [address] [place], [address] WBC 0 SEEN Normal 0-[address] [place] [address] Comment on above: Order Comment: CLEAN CATCH Performed By: #### L 400.0001 ####[facility] [address] [place], [address] 12 Lead EKGon 01-29-2024 12 Lead EKG Normal [facility] Basic Metabolic Profile (BMP )on 01-29-2024 BUN/CRE 18.7 RATIO Normal 10-[address] [facility] Comment on above: Order Comment: 'TROP ' Serial specimen #1, #2 or #3: 1 Performed By: #### L 100.0100, L501.4020, L500.2500 ####[facility] [address] [place], [address] CA,Total 9.3 mg/dL Normal 8.5-10.[address] [facility] Comment on above: Order Comment: 'TROP ' Serial specimen #1, #2 or #3: 1 Performed By: #### L 100.0100, L501.4020, L500.2500 ####[facility] [address] [place], [address] Chloride [Moles/Vol] 108 mmol/L High 98-107 [facility] Comment on above: Order Comment: 'TROP ' Serial specimen #1, #2 or #3: 1 Performed By: #### L 100.0100, L501.4020, L500.2500 ####[facility] [address] [place], [address] CO2 [Moles/Vol] 28.0 mmol/L Normal 21.0-32.[address] [facility] Comment on above: Order Comment: 'TROP ' Serial specimen #1, #2 or #3: 1 Performed By: #### L 100.0100, L501.4020, L500.2500 ####[facility] [address] [place], [address] Creatinine [Mass/Vol] 0.96 mg/dL Normal 0.70-1.[address] [facility] Comment on above: Order Comment: 'TROP ' Serial specimen #1, #2 or #3: 1 Result Comment: The validity of the calculated GFR GFRAA in patients over70 years has not been determined. Clinical correlation isessential. Performed By: #### L 100.0100, L501.4020, L500.2500 ####[facility] [address] [place], [address] ECRCL 167.08 ml/min Normal [facility] Comment on above: Order Comment: 'TROP ' Serial specimen #1, #2 or #3: 1 Performed By: #### L 100.0100, L501.4020, L500.2500 ####[facility] [address] [place], [address] EST GFR - AA 115 mL/min Normal >[address] [facility] Comment on above: Order Comment: 'TROP ' Serial specimen #1, #2 or #3: 1 Result Comment: Afri can [place] GFR Calc Performed By: #### L 100.0100, L501.4020, L500.2500 ####[facility] [address] [place], [address] GAP 3 Low 5-[address] [facility] Comment on above: Order Comment: 'TROP ' Serial specimen #1, #2 or #3: 1 Performed By: #### L 100.0100, L501.4020, L500.2500 ####[facility] [address] [place], [address] GFR/1.73 sq M.predicted among non-blacks MDRD (S/P/Bld) [Vol rate/Area] 95 mL/min/{1.73_m2} Normal >[address] [facility] Comment on above: Order Comment: 'TROP ' Serial specimen #1, #2 or #3: 1 Result Comment: Non- GFR Calc Performed By: #### L 100.0100, L501.4020, L500.2500 ####[facility] [address] [place], [address] Glucose [Mass/Vol] 80 mg/dL Normal 74-106 [facility] Comment on above: Order Comment: 'TROP ' Serial specimen #1, #2 or #3: 1 Performed By: #### L 100.0100, L501.4020, L500.2500 ####[facility] [address] [place], [address] Potassium [Moles/Vol] 3.9 mmol/L Normal 3.5-5.[address] [facility] Comment on above: Order Comment: 'TROP ' Serial specimen #1, #2 or #3: 1 Result Comment: Mode rate Hemolysis, Result may be falsely increased. Performed By: #### L 100.0100, L501.4020, L500.2500 ####[facility] [address] [place], [address] Sodium [Moles/Vol] 139 mmol/L Normal 136-145 [facility] Comment on above: Order Comment: 'TROP ' Serial specimen #1, #2 or #3: 1 Performed By: #### L 100.0100, L501.4020, L500.2500 ####[facility] [address] [place], [address] Urea nitrogen [Mass/Vol] 18 mg/dL Normal 7-[address] [facility] Comment on above: Order Comment: 'TROP ' Serial specimen #1, #2 or #3: 1 Performed By: #### L 100.0100, L501.4020, L500.2500 ####[facility] [address] [place], [address] CBC W/Diff, Automatedon 01-18 PATH REV May foll Normal [facility] Comment on above: Performed By: #### L 100.0100, L501.4020, L500.2500 ####[facility] [address] [place], [address] Chest 1 View (Portable)on Chest 1 View (Portable) Normal [facility] D-Dimer Quantitative (DVT/PE )on 01-29-2024 D-DIMER QUANT 0.42 FEU/ug/m Normal 0.27-0.[address] [facility] Comment on above: Result Comment: NORM AL D-Dimer level (<0.50) indicates no DVT or PE. Performed By: #### L 300.8000 ####[facility] [address] [place], [address] Emergency Department Summary on 01-29-2024 Emergency Department Summary Normal [facility] L501.4020on 01-29-2024 TROPONIN-I HS < 3 Low 3.0-78.[address] [facility] Comment on above: Order Comment: 'TROP ' Serial specimen #1, #2 or #3: 1 Result Comment: Plea se Note: New Test Units and Gender Specific Reference Ranges. For more information see Policy Stat Procedure Point High Sensitivity Troponin (TNIH) and attachments. Performed By: #### L 100.0100, L501.4020, L500.2500 ####[facility] [address] [place], [address] Absolute lymphocyte countOrd ered By: Raheem Nguyen on 07-05-2023 Lymphocytes Auto (Unsp spec) [#/Vol] 1.76 10*3/uL 0.83-4.[address] [facility] Basophil percentageOrdered B y: Raheem Nguyen on 07-05-2023 Basophils/100 WBC (Bld) 0.7 % 0-[address] [facility] Bilirubin [Mass/Vol] 1.00 mg/dL 0.20-1.00 [facility] Comment on above: For patients on eltr ombopag therapy, use of Dimension [place] TBIL is not recommended. Chloride [Moles/Vol] 106 mmol/L 98-107 [facility] Eosinophils/100 WBC (Bld) 3.7 % 0-[address] [facility] Glucose [Mass/Vol] 90 mg/dL 74-106 [facility] Neutrophils (Bld) [#/Vol] 3.9 10*3/uL 2.0-7.[address] [facility] Neutrophils/100 WBC (Bld) 58.5 % 47-[address] [facility] Potassium [Moles/Vol] 3.8 mmol/L 3.5-5.[address] [facility] Protein [Mass/Vol] 7.3 g/dL 6.4-8.2 [facility] Sodium [Moles/Vol] 139 mmol/L 136-145 [facility] WBC (Bld) [#/Vol] 6.7 10*3/uL 4.4-11.0 [facility] Blood erythrocytes count (nu mber/volume)Ordered By: Raheem Nguyen on 07-05-2023 RBC (Bld) [#/Vol] 4.50 10*6/uL 4.6-6.2 [facility] Blood hemoglobin measurement (mass/volume)Ordered By: Raheem Nguyen on 07-05-2023 Hemoglobin (Bld) [Mass/Vol] 14.3 g/dL 13.0-16.[address] [facility] Blood lymphocytes/100 leukoc ytesOrdered By: Raheem Nguyen on 07-05-2023 Lymphocytes/100 WBC (Bld) 26.2 % 19-[address] [facility] Blood monocytes/100 leukocyt esOrdered By: Raheem Nguyen on 07-05-2023 Monocytes/100 WBC (Bld) 10.5 % 0-[address] [facility] Blood platelet mean volumeOr dered By: Raheem Nguyen on 07-05-2023 Platelet mean volume (Bld) [Entitic vol] 10.8 fL 6.2-12.[address] [facility] Culture, urineOrdered By: Katherine Nguyen on 07-05-2023 Bacteria identified Cx Nom (U) Culture exhibits no growth. [facility] Determination of erythrocyte mean corpuscular volume (MCV)Ordered By: Raheem Nguyen on 07-05-2023 MCV (RBC) [Entitic vol] 95.6 fL 80-[address] [facility] Hematocrit Auto (Bld) [Volum e fraction]Ordered By: Raheem Nguyen on 07-05-2023 Hematocrit (Bld) [Volume fraction] 43.0 % 40-[address] [facility] Laboratory - Chemistry and C hemistry - challengeOrdered By: Raheem Nguyen on 07-05-2023 ALP [Catalytic activity/Vol] 70 U/L 45-[address] [facility] ALT [Catalytic activity/Vol] 40 U/L 16-[address] [facility] CO2 [Moles/Vol] 26.0 mmol/L 21.0-32.[address] [facility] Globulin (S) [Mass/Vol] 3.6 g/dL 2.2-4.[address] [facility] Urea nitrogen/Creatinine [Mass ratio] 15.8 mg/mg 10-[address] [facility] Laboratory - Hematology and Cell countsOrdered By: Raheem Nguyen on 07-05-2023 Erythrocyte distribution width (RBC) [Entitic vol] 41.2 fL 35.1-43.[address] [facility] Erythrocyte distribution width (RBC) [Ratio] 11.8 % 11.6-14.[address] [facility] Immature granulocytes/100 WBC (Bld) 0.400 % 0.0-0.[address] [facility] Comment on above: IG% - Immature Granu locytes (promyelocytes, myelocytes and metamyelocytes) > 1% indicates that a LEFT SHIFT is Present. MCH (RBC) [Entitic mass] 31.8 pg 27.0-32.[address] [facility] Nucleated RBC/100 WBC (Bld) [Ratio] 0 % 0-[address] [facility] MCHC Auto (RBC) [Mass/Vol]Or dered By: Raheem Nguyen on 07-05-2023 MCHC (RBC) [Mass/Vol] 33.3 g/dL 32-[address] [facility] No Panel InformationOrdered By: Raheem Nguyen on 07-05-2023 Estimated GFR (MDRD) Amer 152 mL/min >[address] [facility] Comment on above: GFR Calc Estimated GFR (MDRD) Non-Af Amer 126 mL/min >[address] [facility] Comment on above: Non- GFR Calc Platelets bldOrdered By: Donovan Nguyen on 07-05-2023 Platelets (Bld) [#/Vol] 236 10*3/uL 150-[address] [facility] Serum or plasma albumin sheryl urement (mass/volume)Ordered By: Raheem Nguyen on 07-05-2023 Albumin [Mass/Vol] 3.7 g/dL 3.2-5.0 [facility] Serum or plasma albumin/glob ulin mass ratioOrdered By: Raheem Nguyen on 07-05-2023 Albumin/Globulin [Mass ratio] 1.0 {ratio} 0.9-2.[address] [facility] Serum or plasma calcium sheryl urement (mass/volume)Ordered By: Raheem Nguyen on 07-05-2023 Calcium [Mass/Vol] 8.5 mg/dL 8.5-10.1 [facility] Serum or plasma creatinine m easurement (mass/volume)Ordered By: Raheem Nguyen on 07-05-2023 Creatinine [Mass/Vol] 0.76 mg/dL 0.70-1.[address] [facility] Comment on above: The validity of the calculated GFR & GFRAA in patients over 70 years has not been determined. Clinical correlation is essential. Serum or plasma urea nitroge n measurement (mass/volume)Ordered By: Raheem Nguyen on 07-05-2023 Urea nitrogen [Mass/Vol] 12 mg/dL 7-[address] [facility] Thin prep Papanicolaou smear with manual screeningOrdered By: Raheem Nguyen on 07-05-2023 Thin prep Papanicolaou smear with manual screening 16 U/L 15-[address] [facility] Thin prep Papanicolaou smear with manual screening 7 5-[address] [facility] No Panel InformationOrdered By: Dr. Mar on 12-14-2022 Activated Clotting Time 233 sec 74-[address] [facility] Basophil percentageOrdered B y: Dr. Mar on 12-11-2022 Chloride [Moles/Vol] 104 mmol/L 98-107 [facility] Glucose [Mass/Vol] 93 mg/dL 74-106 [facility] Potassium [Moles/Vol] 3.9 mmol/L 3.5-5.[address] [facility] Comment on above: Moderate Hemolysis, Result may be falsely increased. Sodium [Moles/Vol] 135 mmol/L 136-145 [facility] WBC (Bld) [#/Vol] 7.6 10*3/uL 4.4-11.0 [facility] Blood erythrocytes count (nu mber/volume)Ordered By: Dr. Mar on 12-11-2022 RBC (Bld) [#/Vol] 5.00 10*6/uL 4.6-6.2 [facility] Blood hemoglobin measurement (mass/volume)Ordered By: Dr. Mar on 12-11-2022 Hemoglobin (Bld) [Mass/Vol] 15.9 g/dL 13.0-16.[address] [facility] Blood platelet mean volumeOr dered By: Dr. Mar on 12-11-2022 Platelet mean volume (Bld) [Entitic vol] 10.6 fL 6.2-12.[address] [facility] Determination of erythrocyte mean corpuscular volume (MCV)Ordered By: Dr. Mar on 12-11-2022 MCV (RBC) [Entitic vol] 93.8 fL 80-[address] [facility] Hematocrit Auto (Bld) [Volum e fraction]Ordered By: Dr. Mar on 12-11-2022 Hematocrit (Bld) [Volume fraction] 46.9 % 40-[address] [facility] Laboratory - Chemistry and C hemistry - challengeOrdered By: Dr. Mar on 12-11-2022 CO2 [Moles/Vol] 25.0 mmol/L 21.0-32.[address] [facility] Urea nitrogen/Creatinine [Mass ratio] 23.3 mg/mg 10-[address] [facility] Laboratory - Hematology and Cell countsOrdered By: Dr. Mar on 12-11-2022 Erythrocyte distribution width (RBC) [Entitic vol] 40.3 fL 35.1-43.[address] [facility] Erythrocyte distribution width (RBC) [Ratio] 11.7 % 11.6-14.[address] [facility] MCH (RBC) [Entitic mass] 31.8 pg 27.0-32.[address] [facility] [facility] MCHC Auto (RBC) [Mass/Vol]Or dered By: Dr. Mar on 12-11-2022 MCHC (RBC) [Mass/Vol] 33.9 g/dL 32-[address] [facility] No Panel InformationOrdered By: Dr. Mar on 12-11-2022 Estimated GFR (MDRD) Amer 133 mL/min >[address] [facility] Comment on above: GFR Calc Estimated GFR (MDRD) Non-Af Amer 110 mL/min >[address] [facility] Comment on above: Non- GFR Calc Platelets bldOrdered By: Dr. Mar on 12-11-2022 Platelets (Bld) [#/Vol] 222 10*3/uL 150-[address] [facility] Serum or plasma calcium sheryl urement (mass/volume)Ordered By: Dr. Mar on 12-11-2022 Calcium [Mass/Vol] 9.1 mg/dL 8.5-10.1 [facility] Serum or plasma creatinine m easurement (mass/volume)Ordered By: Dr. Mar on 12-11-2022 Creatinine [Mass/Vol] 0.86 mg/dL 0.70-1.[address] [facility] Comment on above: The validity of the calculated GFR & GFRAA in patients over 70 years has not been determined. Clinical correlation is essential. Serum or plasma urea nitroge n measurement (mass/volume)Ordered By: Dr. Mar on 12-11-2022 Urea nitrogen [Mass/Vol] 20 mg/dL 7-[address] [facility] Thin prep Papanicolaou smear with manual screeningOrdered By: Dr. Mar on 12-11-2022 Thin prep Papanicolaou smear with manual screening 6 5-[address] [facility] Blood or tissue coagulation factor II targeted mutation analysis by molecular geneticOrdered By: Dr. Nguyen on 09-28-2022 F2 gene targeted mutation analysis Molgen Nom (Bld/Tiss) Not Reportable [facility] Dilute Blake's viper venom timeOrdered By: Dr. Nguyen on 09-28-2022 dRVVT Coag (PPP) [Time] Not Reportable [facility] Functional protein C measure mentOrdered By: Dr. Nguyen on 09-28-2022 Protein C actual/normal Chromogenic method (PPP) [Rel catalytic activity/Vol] Not Reportable [facility] No Panel InformationOrdered By: Dr. Nguyen on 09-28-2022 Activated Protein C Resistance See comment [facility] Comment on above: TEST RESULTS LIMITST hrombotic Risk Profile IHomocyst(e)ine 8.2 umol/L 0.0-14.5Plasminogen 128 % 70-150Antithrombin Activity 138 High % 75-135An elevated antithrombin activity is of no known clinicalsignificance. Direct Xa inhibitor anticoagulants such as rivaroxaban, apixaban and edoxaban will lead to spuriously elevated antithrombin activity levels possibly masking a deficiency.Protein C-Functional >199 High % 73-180Elevated protein C activity is of no known clinical significance.Protein S, Free 143 High % 61-136Act.Prt.C Resist. 1.8 Low ratio 2.2-3.5A low activated protein C resistance (APCR) is a risk factor for venous thrombosis and is a screen for the Factor V Leiden mutation. Consider molecular analysis for this mutation. Other causes for abnormal APCR are uncommon and include other rare mutations in the Factor V molecule, and certain drug therapies, includingthalidomide therapy, presence of a lupus anticoagulant, increased Factor VIII levels, and autoantibodies against activated protein C.Factor V Leiden AbnormalResult: c.1601G>A (p.[id number]) - Detected, HeterozygousThis result is associated with a 6- to 8-fold increased risk for venous thromboembolism. See Additional Clinical Information and Comments.Comment Additional Clinical Information:Venous thromboembolism is a multifactorial disease influenced by genetic, environmental, and circumstantial risk factors. The c.1601G>A (p. [id number]) variant in the F5 gene, commonly referred to as Factor V Leiden, is a genetic risk factor for venous thromboembolism.Heterozygous carriers of this variant have a 6- to 8-fold increased risk for venous thromboembolism. Individuals homozygous for this variant (ie, with a copy of the variant on each chromosome) have an approximately 80-fold increased risk for venous thromboembolism. Individuals who carry both a c.*97G>A variant in the F2 gene and Factor V Leiden have an approximately 20-fold increased risk for venous thromboembolism. Risks are likely to be even higher in morecomplex genotype combinations involving the F2 c.*97G>A variant and Factor V Leiden (PMID: [id number]). Additional risk factors include but are not limited to: deficiency of protein C, protein S, or antithrombin III, age, male sex, personal or family history of deep vein thromboembolism, smoking, surgery, prolonged immobilization, malignant neoplasm, tamoxifen treatment, raloxifene treatment, oralcontraceptive use, hormone replacement therapy, and . Management of thrombotic risk and thrombotic events should follow established guidelines and fit the clinical circumstance. This result cannot predict the occurrence or recurrence of a thrombotic event.Comment:Genetic counseling is recommended to discuss the potential clinical implications of positive results, as well as recommendations for testing family members.Genetic Coordinators are available for health care providers to discuss results at [phone] ([phone]).Test Details:Variant Analyzed: c.1601G>A (p. [id number]), referred to as Factor V LeidenMethods/Limitations:DNA analysis of the F5 gene (NM_000130.5) was performed by PCR amplification followed by restriction enzyme analysis. The diagnostic sensitivity is >99%. Results must be combined with clinical information for the most accurate interpretation. Molecular-based testing is highly accurate, but as in any laboratory test, diagnostic errors may occur. False positive or false negative results may occurfor reasons that include genetic variants, blood transfusions, bone marrow transplantation, somatic or tissue-specific mosaicism, mislabeled samples, or erroneous representation of family relationships.This test was developed and its performance characteristicsdetermined by [facility]. It has not been cleared or approved by the Food and Drug Administration.References:Smitha S, Vielka ETIENNE, Vitor R, Esha WW, Steve JH; [employer] Professional Practice and Guidelines Committee. Addendum: [place] [employer] consensus statement on factor V Leiden mutation testing. [employer]. 2020Oct 22. doi: 10.1038/p62160-465-32378-g.PMID: 38360784.Eva BERTRAND. Factor V Leiden Thrombophilia. 1998December 31(Updated 2017Aug 23). In: Jose MP, Vince HH, Mini RA, et al., editors. Health Market Sciencearely(R) (Internet). [place]): [facility], [place]; 7499-3861. Available from:https://www.ncbi.nlm.nih.gov/books/VSN0877/Gareth S, Vielka ETIENNE, Francis X, Davy B, Keyona EB, Jannie P, Cheli CS; [employer] Laboratory Forepart Rounder Committee. Venous thromboembolism laboratory testing (factor V Leiden and factor II c.*97G>A), 2018update: a technical standard of the [place] [employer] ([employer]). [employer]. 2018 Jul;20(12):5841-6458. doi: 10.1038/g50480-711-6180-b. Epub 2017May 24. PMID: 18543934.Priya Torres, PhD, Juvenal Barrera, PhDJohn Page, PhD, Perry Lee, PhD, Jessica Stoll, PhD, AMIRAHJose Rafael Penn, PhD, Hamilton Ash, PhD, Eligio Barkley, PhD, [facility] Lupus Anticoagulant Reflex PTT-LA 3 (more content not included)... Anti-Cardiolipin IgM Antibody Not Reportable [facility] Factor V Leiden Mutation Not Reportable [facility] Homocysteine Not Reportable [facility] Plasminogen activity plasOrd ered By: Dr. Nguyen on 09-28-2022 Plasminogen actual/normal Chromogenic method (PPP) [Rel catalytic activity/Vol] Not Reportable [facility] Platelet poor plasma antithr ombin actual/normal ratio by chromogenic method (relativeOrdered By: Dr. Nguyen on 09-28-2022 Antithrombin actual/normal Chromogenic method (PPP) [Rel catalytic activity/Vol] Not Reportable [facility] Protein S, freeOrdered By: Subha Nguyen on 09-28-2022 Protein S Free Ag IA Qn (PPP) Not Reportable [facility] Serum beta 2 glycoprotein 1 IgA antibody detectionOrdered By: Dr. Nguyen on 09-28-2022 Beta 2 glycoprotein 1 IgA Ql (S) Not Reportable [facility] Serum beta 2 glycoprotein 1 IgG antibody detectionOrdered By: Dr. Nguyen on 09-28-2022 Beta 2 glycoprotein 1 IgG Ql (S) Not Reportable [facility] Serum beta 2 glycoprotein 1 IgM antibody detectionOrdered By: Dr. Nguyen on 09-28-2022 Beta 2 glycoprotein 1 IgM Ql (S) Not Reportable [facility] Serum cardiolipin IgG antibo dy assay by immunoassay (units/volume)Ordered By: Dr. Nguyen on 09-28-2022 Cardiolipin IgG IA Qn (S) Not Reportable [facility] Thin prep Papanicolaou smear with manual screeningOrdered By: Dr. Nguyen on 09-28-2022 Thin prep Papanicolaou smear with manual screening Not Reportable [facility] Absolute lymphocyte countOrd ered By: Dr. Nguyen on 09-21-2022 Lymphocytes Auto (Unsp spec) [#/Vol] 1.85 10*3/uL 0.83-4.[address] [facility] Basophil percentageOrdered B y: Dr. Nguyen on 09-21-2022 Basophils/100 WBC (Bld) 0.5 % 0-[address] [facility] Bilirubin [Mass/Vol] 0.50 mg/dL 0.20-1.00 [facility] Comment on above: For patients on eltr ombopag therapy, use of [place] TBIL is not recommended. Chloride [Moles/Vol] 105 mmol/L 98-107 [facility] Eosinophils/100 WBC (Bld) 2.6 % 0-[address] [facility] Glucose [Mass/Vol] 71 mg/dL 74-106 [facility] Neutrophils (Bld) [#/Vol] 4.3 10*3/uL 2.0-7.[address] [facility] Neutrophils/100 WBC (Bld) 58.4 % 47-[address] [facility] Potassium [Moles/Vol] 3.6 mmol/L 3.5-5.[address] [facility] Protein [Mass/Vol] 8.1 g/dL 6.4-8.2 [facility] Sodium [Moles/Vol] 140 mmol/L 136-145 [facility] WBC (Bld) [#/Vol] 7.4 10*3/uL 4.4-11.0 [facility] Blood erythrocytes count (nu mber/volume)Ordered By: Dr. Nguyen on 09-21-2022 RBC (Bld) [#/Vol] 4.56 10*6/uL 4.6-6.2 [facility] Blood hemoglobin measurement (mass/volume)Ordered By: Dr. Nguyen on 09-21-2022 Hemoglobin (Bld) [Mass/Vol] 15.0 g/dL 13.0-16.[address] [facility] Blood lymphocytes/100 leukoc ytesOrdered By: Dr. Nguyen on 09-21-2022 Lymphocytes/100 WBC (Bld) 25.2 % 19-[address] [facility] Blood monocytes/100 leukocyt esOrdered By: Dr. Nguyen on 09-21-2022 Monocytes/100 WBC (Bld) 12.9 % 0-[address] [facility] Blood platelet mean volumeOr dered By: Dr. Nguyen on 09-21-2022 Platelet mean volume (Bld) [Entitic vol] 10.7 fL 6.2-12.[address] [facility] Determination of erythrocyte mean corpuscular volume (MCV)Ordered By: Dr. Nguyen on 09-21-2022 MCV (RBC) [Entitic vol] 96.5 fL 80-[address] [facility] Hematocrit Auto (Bld) [Volum e fraction]Ordered By: Dr. Nguyen on 09-21-2022 Hematocrit (Bld) [Volume fraction] 44.0 % 40-[address] [facility] Laboratory - Chemistry and C hemistry - challengeOrdered By: Dr. Nguyen on 09-21-2022 ALP [Catalytic activity/Vol] 80 U/L 45-[address] [facility] ALT [Catalytic activity/Vol] 39 U/L 16-[address] [facility] CO2 [Moles/Vol] 26.0 mmol/L 21.0-32.[address] [facility] Globulin (S) [Mass/Vol] 4.2 g/dL 2.2-4.[address] [facility] Urea nitrogen/Creatinine [Mass ratio] 15.0 mg/mg 10-[address] [facility] Laboratory - Hematology and Cell countsOrdered By: Dr. Nguyen on 09-21-2022 Erythrocyte distribution width (RBC) [Entitic vol] 41.5 fL 35.1-43.[address] [facility] Erythrocyte distribution width (RBC) [Ratio] 11.8 % 11.6-14.[address] [facility] Immature granulocytes/100 WBC (Bld) 0.400 % 0.0-0.[address] [facility] Comment on above: IG% - Immature Granu locytes (promyelocytes, myelocytes and metamyelocytes) > 1% indicates that a LEFT SHIFT is Present. MCH (RBC) [Entitic mass] 32.9 pg 27.0-32.[address] [facility] Nucleated RBC/100 WBC (Bld) [Ratio] 0 % 0-[address] [facility] MCHC Auto (RBC) [Mass/Vol]Or dered By: Dr. Nguyen on 09-21-2022 MCHC (RBC) [Mass/Vol] 34.1 g/dL 32-[address] [facility] No Panel InformationOrdered By: Dr. Nguyen on 09-21-2022 Estimated GFR (MDRD) Amer 144 mL/min >[address] [facility] Comment on above: GFR Calc Estimated GFR (MDRD) Non-Af Amer 119 mL/min >[address] [facility] Comment on above: Non- GFR Calc Platelets bldOrdered By: Dr. Nguyen on 09-21-2022 Platelets (Bld) [#/Vol] 211 10*3/uL 150-[address] [facility] Serum or plasma albumin sheryl urement (mass/volume)Ordered By: Dr. Nguyen on 09-21-2022 Albumin [Mass/Vol] 3.9 g/dL 3.2-5.0 [facility] Serum or plasma albumin/glob ulin mass ratioOrdered By: Dr. Nguyen on 09-21-2022 Albumin/Globulin [Mass ratio] 0.9 {ratio} 0.9-2.[address] [facility] Serum or plasma calcium sheryl urement (mass/volume)Ordered By: Dr. Nguyen on 09-21-2022 Calcium [Mass/Vol] 9.2 mg/dL 8.5-10.1 [facility] Serum or plasma creatinine m easurement (mass/volume)Ordered By: Dr. Nguyen on 09-21-2022 Creatinine [Mass/Vol] 0.80 mg/dL 0.70-1.[address] [facility] Comment on above: The validity of the calculated GFR & GFRAA in patients over 70 years has not been determined. Clinical correlation is essential. Serum or plasma urea nitroge n measurement (mass/volume)Ordered By: Dr. Nguyen on 09-21-2022 Urea nitrogen [Mass/Vol] 12 mg/dL 7-[address] [facility] Thin prep Papanicolaou smear with manual screeningOrdered By: Dr. Nguyen on 09-21-2022 Thin prep Papanicolaou smear with manual screening 18 U/L 15-[address] [facility] Thin prep Papanicolaou smear with manual screening 9 5-[address] [facility] DHARMESH GTZ ([id number]) 1990 M Date Time Provider Department 08/02/21 ANI LEAHY GABRIELLE During your visit today, we recorded the following information about you: Priya Rigginsley 08/02/2021 10:40 AM Signed ----- Message from Ani Leahy APRN.MECHANICAL INTEGRITY SPECIALIST sent at 08/02/2021 9:00 AM EST ----- Please advise Dharmesh the COVID and influenza test was negative. Ani Leahy APRN.LITTLE Montaño 08/02/2021 10:41 AM Signed Unable to reach patient. Mailbox full/Mailbox not set up/ Number incorrect. Please try again later. Priya Danielson Ma 08/03/2021 12:03 PM Signed Patient notified of results. Allergies As of Date: 08/02/2021 Noted Allergy Reaction AMOXICILLIN 04/18/2013 2 - Rash CECLOR (CEFACLOR) 04/18/2013 2 - Rash PENICILLINS 04/18/2013 2 - Rash Date Reviewed: 08/01/2021 Reviewed by: Priya Montaño - Fully Assessed Reason for Visit: Results [95] Prescriptions as of 08/03/2021 - sertraline (ZOLOFT) 100 mg tablet Take 100 mg by mouth once daily. - omeprazole 20 mg capsule Take 1 capsule by mouth daily before breakfast. 1/2 hr before meal. - Ibuprofen 200 mg cap Take 4 capsules by mouth as needed. Problem List As Of Date 08/02/2021 Noted Resolved Back pain [M54.9] Anxiety [F41.9] Hyperlipidemia [E78.5] Tobacco use disorder [F17.200] Lumbar radiculopathy [M54.16] 03/04/2014 Low back pain [M54.50] 03/04/2014 Encounter Status:Closed by CARRI DANIELSON MA on 08/03/21 [facility] CNOVon 08-01-2021 CNOV Office Visit ([facility] ) DHARMESH GTZ ([id number]) 1990 M Date Time Provider Department 08/01/21 10:45 AM IZA HILARIO WSTR During your visit today, we recorded the following information about you: Temperature Pulse Respiration Blood pressure 98.2 degrees 88/minute 16/minute 132/72 Weight 123.8 kg Iza NARESH Hilario.LITTLE 08/03/2021 1:32 PM Signed This note was created using NoteWriter. Subjective Dharmesh Gtz is a 31 year old male. 31 year old male with PMH tobacco usage presents requesting want to make sure I don't have khadar Acute onset this past Sunday States started with feeling crappy +fatigue +sinus pressure +headache +loss of appetite +cough +congestion Denies N/V/D. Denies fever or chills. COVID vaccinated. The history is provided by the patient. No speech language therapist was used. URI He complains of cough. [...] clear. No oropharyngeal exudate or posterior oropharyngeal eryth (more content not included)... Normal [facility] COVID w FLU A+B Prashant 08-01 Influenza A PCR Negative Normal [facility] Comment on above: Performed By: #### C OVFLU #### [place] [address] Influenza B PCR Negative Normal [facility] Comment on above: Performed By: #### C OVFLU #### [place] [address] SARS-CoV-2 (COVID-19) RNA KATIA+probe Ql (Unsp spec) UPPER RESPIRATORY TRACT SWAB Normal [facility] Comment on above: Performed By: #### C OVFLU #### [place] [address] SARS-CoV-2 (COVID-19) RNA KATIA+probe Ql (Unsp spec) Negative for COVID19 (SARS CoV2) by RT-PCR or equivalent method. Normal Negative for COVID19 (SARS CoV2) by RT-PCR or equivalent method. [facility] Comment on above: Result Comment: This test was developed and its performance characteristics determined by [facility] [place]. This test has been authorized by FDA under an Emergency Use Authorization (EUA). This test has been validated in accordance with the FDA's Guidance Document Policy for Diagnostics Testing in Laboratories Certified to Perform High Complexity Testing under CLIA prior to Emergency use Authorization for Coronavirus Disease 2019 during the Public Health Emergency issued on October 18, 2019. Test performed by [facility], [facility] [place], [address] [place] [address]. Performed By: #### C OVFLU #### [place] [address] Vital Signs Date Time Vital Sign Value Performing Clinician Jo Ann munoz 08-25-2024 12:53-0500 Body height 205.[address] Raheem Nguyen MD Work Phone: [facility] 08-25-2024 12:53-0500 Body weight 131.[address] Raheem Nguyen MD Work Phone: [facility] 08-25-2024 12:53-0500 Heart rate 100 /min Dr. Raheem Nguyen MD Work Phone: [facility] 08-25-2024 12:53-0500 SaO2% (BldA) [Mass fraction] 96 % Dr. Raheem Nguyen MD Work Phone: [facility] 08-19-2024 10:28-0500 Body mass index (BMI) [Ratio] 32.6 kg/m2 Dr. Raheem Nguyen MD Work Phone: [phone] [place] [address] 08-19-2024 10:28-0500 Body temperature 96.6 [degF] Dr. Raheem Nguyen MD Work Phone: [phone] [place] [address] 08-19-2024 10:28-0500 Body weight 131.[address] Raheem Nguyen MD Work Phone: [facility] 08-19-2024 10:28-0500 Diastolic blood pressure 98 mm[Hg] Dr. Raheem Nguyen MD Work Phone: [facility] 08-19-2024 10:28-0500 Heart rate 90 /min Dr. Raheem Nguyen MD Work Phone: [facility] 08-19-2024 10:28-0500 Respiratory rate 20 /min Dr. Raheem Nguyen MD Work Phone: [facility] 08-19-2024 10:28-0500 SaO2% (BldA) [Mass fraction] 98 % Dr. Raheem Nguyen MD Work Phone: [facility] 08-19-2024 10:28-0500 Systolic blood pressure 154 mm[Hg] Dr. Raheem Nguyen MD Work Phone: [facility] 01-11-2023 15:49-0400 Body weight 122.[address] Raheem Nguyen Work Phone: [facility] 01-11-2023 15:49-0400 Diastolic blood pressure 83 mm[Hg] Dr. Raheem Nguyen Work Phone: [facility] 01-11-2023 15:49-0400 Heart rate 88 /min Dr. Raheem Nguyen Work Phone: [facility] 01-11-2023 15:49-0400 Respiratory rate 16 /min Dr. Raheem Nguyen Work Phone: [facility] 01-11-2023 15:49-0400 SaO2% (BldA) [Mass fraction] 99 % Dr. Raheem Nguyen Work Phone: [facility] 01-11-2023 15:49-0400 Systolic blood pressure 144 mm[Hg] Dr. Raheem Nguyen Work Phone: [facility] 12-14-2022 07:14-0400 Body height 200.[address] Raheem Nguyen Work Phone: [facility] 12-14-2022 07:14-0400 Body weight 122.[address] Raheem Nguyen Work Phone: [facility] 12-13-2022 08:09-0400 Body mass index (BMI) [Ratio] 30.3 kg/m2 Dr. Raheem Nguyen Work Phone: [facility] 11-15-2022 15:04-0400 Body weight 122.[address] Raheem Nguyen Work Phone: [facility] 11-15-2022 15:04-0400 Diastolic blood pressure 86 mm[Hg] Dr. Raheem Nguyen Work Phone: [facility] 11-15-2022 15:04-0400 Heart rate 78 /min Dr. Raheem Nguyen Work Phone: [facility] 11-15-2022 15:04-0400 Respiratory rate 18 /min Dr. Raheem Nguyen Work Phone: [facility] 11-15-2022 15:04-0400 SaO2% (BldA) [Mass fraction] 98 % Dr. Raheem Nguyen Work Phone: [facility] 11-15-2022 15:04-0400 Systolic blood pressure 151 mm[Hg] Dr. Raheem Nguyen Work Phone: [facility] 10-04-2022 15:07-0500 Body temperature 99.1 [degF] Dr. Raheem Nguyen Work Phone: [facility] 10-04-2022 15:07-0500 Body weight 120.[address] Raheem Nguyen Work Phone: [facility] 10-04-2022 15:07-0500 Diastolic blood pressure 77 mm[Hg] Dr. Raheem Nguyen Work Phone: [facility] 10-04-2022 15:07-0500 Heart rate 96 /min Dr. Raheem Nguyen Work Phone: [facility] 10-04-2022 15:07-0500 Respiratory rate 18 /min Dr. Raheem Nguyen Work Phone: [facility] 10-04-2022 15:07-0500 SaO2% (BldA) [Mass fraction] 95 % Dr. Raheem Nguyen Work Phone: [facility] 10-04-2022 15:07-0500 Systolic blood pressure 135 mm[Hg] Dr. Raheem Nguyen Work Phone: [facility] Encounters Encounter Date Encounter Type Care Provider Facility Start: 01-16-2025 End: 01-16-2025 ambulatory Raheem Nguyen Facility:[facility] Start: 12-18-2024 End: 12-18-2024 ambulatory Raheem Nguyen Facility:[facility] Start: 12-18-2024 End: 12-18-2024 ambulatory Raheem Nguyen Facility:[facility] Start: 11-28-2024 Non-patient / Non-visit Dr. Silvino andrade MD -[facility] Start: 11-28-2024 End: 11-28-[address] Raheem Nguyen MD Work Phone: [facility] Work Phone: Start: 11-28-2024 End: 11-28-2024 Patient encounter procedure Marely KNOWLES -Cardiovascular Services Work Phone: Start: 11-28-2024 End: 11-28-2024 ambulatory Raheem Nguyen Facility:[facility] Start: 11-14-2024 End: 11-14-[address] Raheem Nguyen MD Work Phone: [facility] Work Phone: Start: 11-14-2024 End: 11-14-2024 Patient encounter procedure Brooklynn KIRK -Sleep Lab Work Phone: Start: 11-14-2024 End: 11-14-2024 ambulatory Raheem Nguyen Facility:[facility] Start: 11-12-[address] Raheem Nguyen MD -Speech Therapy Work Phone: Start: 11-12-2024 End: 11-12-2024 ambulatory Raheem Nguyen Facility:[facility] Start: 10-22-2024 End: 10-22-[address] Raheem Nguyen MD Work Phone: [facility] Work Phone: Start: 10-22-2024 End: 10-22-2024 Patient encounter procedure [facility] Work Phone: Start: 10-22-2024 End: 10-22-2024 ambulatory Raheem Nguyen Facility:[facility] Start: 09-06-2024 End: 09-06-2024 Patient encounter procedure Melody KNOWLES -[facility] [place], [place] [facility] Work Phone: Start: 09-06-2024 End: 09-06-2024 ambulatory Raheem Nguyen Facility:[facility] Start: 09-01-2024 ambulatory Raheem Nguyen Facilit y:[facility] Start: 09-01-2024 Non-patient / Non-visit Dr. Sage herron DO -[facility] Start: 08-25-2024 End: 08-25-2024 Patient encounter procedure Brooklynn Honeycutt ENTRY LEVEL ACCOUNT EXECUTIVE-C -Pulmonary Services/Neurology Work Phone: Start: 08-25-2024 End: 08-25-2024 ambulatory Brooklynn Honeycutt ENTRY LEVEL ACCOUNT EXECUTIVE Facility:[facility] Start: 08-19-2024 End: 08-19-2024 Patient encounter procedure Brooklynn Honeycutt ENTRY LEVEL ACCOUNT EXECUTIVE-C -[facility] Work Phone: Start: 08-19-2024 End: 08-19-2024 ambulatory Raheem Nguyen Facility:[facility] Start: 08-15-2024 End: 08-15-[address] Raheem Nguyen MD -Cat Scan, [facility] Work Phone: Start: 08-15-2024 End: 08-15-2024 ambulatory Raheem Nguyen Facility:[facility] Start: 08-06-2024 End: 08-06-[address] Raheem Nguyen MD -Pulmonary Services/Neurology Work Phone: Start: 08-06-2024 ambulatory Raheem Nguyen Facilit y:[facility] Start: 08-06-2024 End: 08-06-2024 ambulatory Raheem Nguyen Facility:[facility] Start: 07-03-2024 End: 07-03-2024 ambulatory Raheem Nguyen Facility:[facility] Start: 06-23-2024 ambulatory Marely Whyte Facility:[facility] Start: 06-23-2024 End: 06-23-2024 ambulatory Marely Whyte Facility:[facility] Start: 06-06-2024 End: 06-06-2024 ambulatory Marely Whyte Facility:[facility] Start: 05-28-2024 ambulatory Silvino Walton Facility:[facility] Start: 05-27-2024 ambulatory Silvino Mar Facility:[facility] Start: 05-27-2024 End: 05-29-2024 Evaluation and management of inpatient Silvino Mar Facility:[facility] Start: 05-15-2024 End: 05-15-2024 ambulatory Marely Whyte Facility:[facility] Start: 05-09-2024 ambulatory Raheem Nguyen Facilit y:[facility] Start: 05-02-2024 End: 05-02-2024 ambulatory Marely Whyte Facility:[facility] Start: 04-23-2024 ambulatory Raheem Nguyen Facilit y:[facility] Start: 04-22-2024 End: 04-22-2024 ambulatory Mateus Hennessy Facility:[facility] Start: 04-17-2024 ambulatory Raheem Tatyana Wendy Facilit y:[facility] Start: 04-17-2024 End: 04-25-2024 Evaluation and management of inpatient Raheem Nguyen Facility:[facility] Start: 04-17-2024 End: 04-17-2024 ambulatory Raheem Tatyana Oneilleliecer Facility:[facility] Start: 04-16-2024 ambulatory Raheem Tatyana Scheliecer Facilit y:[facility] Start: 04-16-2024 End: 04-16-2024 ambulatory Raheem Nguyen Facility:[facility] Start: 04-13-2024 End: 04-14-2024 Emergency department patient visit Raheem Nguyen Facility:[facility] Start: 01-29-2024 End: 01-29-2024 Emergency department patient visit Raheem Nguyen Facility:[facility] Start: 12-07-2023 Non-patient / Non-visit Dr. Katherine Nguyen Work Phone: [facility] Start: 12-07-2023 End: 12-07-[address] Raheem Nguyen Work Phone: [facility] Work Phone: Start: 12-07-2023 End: 12-07-[address] Raheem Nguyen Work Phone: [facility]-Cardiovascular Services Work Phone: Start: 09-04-2023 End: 09-04-[address] Raheem Nguyen Work Phone: [facility] Work Phone: Start: 09-04-2023 End: 09-04-[address] Raheem Nguyen Work Phone: [facility] Work Phone: Start: 07-05-2023 End: 07-05-[address] Raheem Nguyen Work Phone: [facility] Work Phone: Start: 07-05-2023 End: 07-05-[address] Raheem Nguyen Work Phone: [facility]-Laboratory, [place] Work Phone: Start: 06-21-2023 End: 06-21-[address] Raheem Nguyen Work Phone: [facility] [place] Work Phone: Start: 06-15-2023 Non-patient / Non-visit Dr. Katherine Nguyen Work Phone: [facility] Start: 06-15-2023 End: 06-15-[address] [facility] Work Phone: Start: 06-15-2023 End: 06-15-2023 [facility] Start: 01-19-2023 Non-patient / Non-visit Dr. Katherine Nguyen Work Phone: [facility] Start: 01-19-2023 End: 01-19-[address] Raheem Nguyen Work Phone: [facility] Work Phone: Start: 01-19-2023 End: 01-19-[address] [facility] Start: 01-11-2023 End: 01-11-[address] Raheem Nguyen Work Phone: [facility] Start: 12-14-2022 Non-patient / Non-visit Dr. Katherine Nguyen Work Phone: [facility] Start: 12-14-2022 End: 12-14-2022 Admission to same day surgery center Dr. Raheem Nguyen Work Phone: [facility]-Accountant Auditor/Special Procedures Start: 12-14-2022 End: 12-14-[address] Raheem Nguyen Work Phone: [facility] Work Phone: Start: 11-15-2022 End: 11-15-[address] Raheem Nguyen Work Phone: [facility] Start: 11-13-2022 Non-patient / Non-visit Dr. Katherine Nguyen Work Phone: [facility] Start: 11-13-2022 End: 11-13-[address] Raheem Nguyen Work Phone: [facility]-Cardiovascular Services Start: 10-04-2022 End: 10-04-[address] Raheem Nguyen Work Phone: [facility] Start: 09-28-2022 End: 09-28-[address] Raheem Nguyen Work Phone: [facility] Work Phone: Start: 09-28-2022 End: 09-28-[address] Raheem Nguyen Work Phone: [facility] Start: 09-21-2022 Non-patient / Non-visit Dr. Katherine Nguyen Work Phone: [facility] Start: 09-21-2022 End: 09-21-[address] Raheem Nguyen Work Phone: [facility] Work Phone: Start: 09-21-2022 End: 09-21-[address] Raheem Nguyen Work Phone: [facility]-Laboratory, [place] Family Procedures Date Procedure Procedure Detail Performing Clinician Start: 09-06-2024 CT of chest without contrast Dr. Raheem Nguyen MD Work Phone: Start: 08-15-2024 CT of soft tissues o f neck with contrast Dr. Raheem Nguyen MD Work Phone: Start: 09-04-2023 Plain chest X-ray Dr. Mae Nguyen Work Phone: Start: 07-05-[address] Raheem Nguyen Work Phone: Start: 06-21-2023 Plain chest X-ray Dr. Mae Nguyen Work Phone: Plan of Treatment Date Care Activity Detail Author Activated protein C resistance [Time Ratio] in Platelet poor plasma by Coagulation assay [facility] Antithrombin III assay, functional [facility] Beta 2 glycoprotein 1 IgA Ab [Presence] in Serum [facility] Beta 2 glycoprotein 1 IgG Ab [Presence] in Serum [facility] Beta 2 glycoprotein 1 IgM Ab [Presence] in Serum [facility] Cardiolipin IgG Ab [ Units/volume] in Serum or Plasma [facility] Cardiolipin IgM Ab [ Units/volume] in Serum or Plasma [facility] dRVVT (LA screen) [facility] F5 gene mutations fo und [Identifier] in Blood or Tissue by Molecular genetics method [facility] Lupus anticoagulant assay, platelet neutralization method [facility] Protein C [Units/vol ume] in Platelet poor plasma by Coagulation assay [facility] Protein S Free Ag ac tual/normal in Platelet poor plasma by Immunoassay [facility] Prothrombin time [facility] Targeted analysis for gene mutation [facility] Immunizations Immunization Date Immunization Notes Care Provider Ced villafuerte 05-29-2024 influenza, seasonal, injectable, preservative free Dr. Raheem Nguyen MD Work Phone: [facility] Payers Date Payer Category Payer Self-pay [id number] Unknown [id number] Unknown [place] [id number] Unknown [facility] [id number] Unknown [id number] 2.16.840.1.375845.3.579.2.462 Unknown [id number] 2.16.840.1.189347.3.579.2.462 Unknown [id number] 2.16.840.1.807368.3.579.2.462 Unknown [id number] 2.16.840.1.081572.3.579.2.462 Unknown [id number] 2.16.840.1.106939.3.579.2.462 Unknown [id number] 2.16.840.1.221813.3.579.2.462 Unknown [id number] 2.16.840.1.402679.3.579.2.462 Unknown [id number] 2.16.840.1.381442.3.579.2.462 Unknown [id number] 2.16.840.1.434868.3.579.2.462 Unknown [id number] 2.16.840.1.621397.3.579.2.462 Unknown [id number] 2.16.840.1.457541.3.579.2.462 Unknown [id number] 2.16.840.1.610428.3.579.2.462 Unknown [id number] 2.16.840.1.528233.3.579.2.462 Unknown [id number] 2.16.840.1.775029.3.579.2.462 Unknown [id number] 2.16.840.1.400272.3.579.2.462 Unknown [id number] 2.16.840.1.005272.3.579.2.462 Unknown [id number] 2.16.840.1.060041.3.579.2.462 Unknown [id number] 2.16.840.1.291830.3.579.2.462 Unknown [id number] 2.16840.1.220441.3.579.2.462 Unknown [id number] 2.16840.1.344642.3.579.2.462 Unknown [id number] 2.840.1.217531.3.579.2.462 Unknown [id number] 2.840.1.928033.3.579.2.462 Unknown [id number] 2.840.1.131676.3.579.2.462 Unknown [id number] 2.840.1.197365.3.579.2.462 Unknown [id number] 2.840.1.886894.3.579.2.462 Unknown [id number] 2.840.1.284844.3.579.2.462 Unknown [id number] 2.840.1.303652.3.579.2.462 Unknown [id number] 2.840.1.040713.3.579.2.462 Unknown [id number] 2.840.1.728685.3.579.2.462 Unknown [id number] 2.840.1.436670.3.579.2.462 Unknown [id number] 2.840.1.131486.3.579.2.462 Unknown [id number] 2.16840.1.133157.3.579.2.462 Unknown [id number] 2.16840.1.906497.3.579.2.462 Unknown [id number] 2.840.1.360704.3.579.2.462 Unknown [id number] 2.16.840.1.840297.3.579.2.462 Unknown [id number] 2.16.840.1.570701.3.579.2.462 Unknown [id number] 2.16.840.1.819788.3.579.2.462 Unknown [id number] 2.16.840.1.684691.3.579.2.462 Unknown [id number] 2.16.840.1.445998.3.579.2.462 Unknown [id number] 2.16.840.1.565030.3.579.2.462 Unknown [id number] 2.16.840.1.653251.3.579.2.462 Unknown [id number] 2.16.840.1.463498.3.579.2.462 Unknown [id number] 2.16.840.1.099122.3.579.2.462 Unknown [id number] 2.16.840.1.454609.3.579.2.462 Social History Date Type Detail Facility Start: 12-16-2020 End: 01-11-2023 Tobacco smoking status [facility] Unknown if ever smoked [facility] Start: 12-16-2020 Cigarettes [facility] Start: 1990 Sex Assigned At Male W [facility] Start: 08-19-2024 End: 11-13-2024 Tobacco smoking status [facility] Smokes tobacco daily (finding) [facility] Start: 11-02-2024 End: 12-03-2024 Sex Male (finding) [facility] Medical Equipment Procedure Code Equipment Code Equipment Origin al Text Equipment Identifier Dates Iliofemoral vein stent ()[id number] [id number] FDA Start: 12-14-2022 Iliofemoral vein stent ()[id number] [id number] FDA Start: 12-14-2022 Iliofemoral vein stent ()[id number] 0)[id number] FDA Start: 12-14-2022 Iliofemoral vein stent ()[id number] FDA Start: 05-28-2024 Iliofemoral vein stent ()[id number] FDA Start: 05-28-2024 Clinical Notes 08-01-2021 to 08-19-2024 Note Date & Type Note Facility 08-19-2024 Evaluation note Diagnosis Onset Date Resolution Abnormal PFTs (pulmonary function tests) acute August 19 2:11pm Daytime hypersomnia acute Decem 2023 2:11pm Nicotine abuse acute July 222023 2:11pm [facility] Work Phone: [phone] 403-159410-10-2024 [facility]10-08-2024 [facility]09-06-2024 [facility] 04-17-2024 [facility]04-27-2023 Procedure [facility]12-13-2021 NoteHNO ID: [id number] Author: Iza Hilario APRN.MECHANICAL INTEGRITY SPECIALIST Service: ? Author Type: Nurse Practitioner Type: Progress Notes Filed: 08/03/2021 1:32 PM Note Text: This note was created using Cloud[employer] IDE. Subjective Dharmesh Gtz is a 31 year old male. 31 year old male with PMH tobacco usage presents requesting want to make sure I don't have khadar Acute onset this past Sunday States started with feeling crappy +fatigue +sinus pressure +headache +loss of appetite +cough +congestion Denies N/V/D. Denies fever or chills. COVID vaccinated. The history is provided by the patient. No speech language therapist was used. URI He complains of cough. [...] Normal rate and regular (more content not included)...[facility] noteNo assessment information [facility] Work Phone: Evaluation note* Diagnosis Onset Date Resolution Status Deep vein thrombosis (DVT) n oneactive [facility] Work Phone: Evaluation note* Diagnosis Onset Date Resolution Status Deep vein thrombosis (DVT) n oneactive Deep vein thrombosis (DVT) a cute [facility] Work Phone: Evaluation note* Diagnosis Onset Date Resolution Status Deep vein thrombosis (DVT) n oneactive Deep vein thrombosis (DVT) a cute Obstruction of iliac vein ch ronic [facility] Work Phone: Reason for referral (narrative)No reason for referral information availableWK[facility]tering [facility] Work Phone: Summary Purpose Family History No Family History Records Found Relationship Condition Age at Onset Recorded Date/T larissa Not Specified Diabetes mellitus Unknown Hypertension Unknown Asthma Unknown Advance Directives No Advanced Directives Records Found Advance Directive Response Recorded Date/ Time Living Will No December 16, 2020 8:36am Power of Medical Intern No December 16 8:36am Advance Directive Response Recorded Date/ Time Advance Directives No December 14 023 7:14am Living Will No December 14, 2022 7:14am Power of Medical Intern No December 14 7:14am Advance Directive Response Recorded Date/ Time Advance Directives No December 14 6:14am Living Will No December 14, 2022 6:14am Power of Medical Intern No December 14 6:14am Advance Directive Response Recorded Date/ Time Advance Directives No July 4:18pm Advance Directive Response Recorded Date/ Time Living Will No December 14, 2022 7:14am Do you have a Healthcare Power of Medical Intern? No December 14, 2022 7:14am Advance Directives No July 4:18pm Chief Complaint and Reason for Visit Chief Complaint SWELLING LEFT LEG Chief Complaint SWELLING LEFT LEG Deep vein thrombosis Reason for Visit Deep vein thrombosis (DVT) Chief Complaint SWELLING LEFT LEG Deep vein thrombosis STAT DVT 6 wk FU thrombosis of unspecified deep veinPOSSIBLE STENT thrombosis of unspecified deep veinPOSSIBLE STENT Reason for Visit Deep vein thrombosis (DVT) Deep vein thrombosis (DVT) Chief Complaint Deep vein thrombosis STAT DVT 6 wk FU thrombosis of unspecified deep veinPOSSIBLE STENT thrombosis of unspecified deep veinPOSSIBLE STENT 3-4 WK FU Compression of vein/IVC Reason for Visit Deep vein thrombosis (DVT) Deep vein thrombosis (DVT) Obstruction of iliac vein Chief Complaint S/P BILATERAL ILIAC VEIN STENTS Chief Complaint S/P BILATERAL ILIAC VEIN STENTS Acute bronchitis EORDER Chief Complaint S/P BILATERAL ILIAC VEIN STENTS Acute bronchitis EORDER bronchitis Chief Complaint bronchitis S/P BILATERAL ILIAC VEIN STENTS Chief Complaint Admit Date SOB August 06, 2024 6:51am R060.00 Dyspnea, unspecified August 152023 1:38pm Shortness of breath August 19, 2024 2:11pm Shortness of breath August 25, 2024 12 :17pm Shortness of breath September 01, 2024 1 :02pm ABNORMAL RESULTS OF PULMONARY FUNCTION S TUDIES September 06, 2024 9:44am daytime hypersomnia October 22, 2024 7:46 pm Reason for Visit Admit Date Abnormal PFTs (pulmonary function tests) August 19, 2024 2:11pm Daytime hypersomnia August 19, 2024 2:11pm Nicotine abuse August 19, 2024 2:11pm Chief Complaint Admit Date SOB August 06, 2024 6:51am R060.00 Dyspnea, unspecified August 152023 1:38pm Shortness of breath August 19, 2024 2:11pm Shortness of breath August 25, 2024 12 :17pm Shortness of breath September 01, 2024 1 :02pm ABNORMAL RESULTS OF PULMONARY FUNCTION S DIES September 06, 2024 9:44am daytime hypersomnia October 22, 2024 7:46 pm VOCAL CORD DYSFUNCTION/RX HERE October 2:46pm JUSTIN November 14, 2024 7:5 6pm Chief Complaint Admit Date SOB August 06, 2024 6:51am R060.00 Dyspnea, unspecified August 152023 1:38pm Shortness of breath August 19, 2024 2:11pm Shortness of breath August 25, 2024 12 :17pm Shortness of breath September 01, 2024 1 :02pm ABNORMAL RESULTS OF PULMONARY FUNCTION S DIES September 06, 2024 9:44am daytime hypersomnia October 22, 2024 7:46 pm VOCAL CORD DYSFUNCTION/RX HERE October 2:46pm JUSTIN November 14, 2024 7:5 6pm S/P ILIAC VEIN STENTS November 28, 2024 9 :29am Additional Source Comments (unrecognized sect ion and content) No Status Records FoundNo Status Records Found INFORMATION SOURCE (unrecogn ized section and content) DATE CREATED AUTHOR 11/08/2021 [facility] DATE CREATED AUTHOR AUTHOR'S ORGANIZ ATION [facility] (unrecognized sec tion and content) Team Status: Active Member Role Status Dates Dr. Raheem Nguyen MD Primary Care Provider Active Team Status: Inactive Member Role Status Dates Dr. Raheem Nguyen MD Primary Care Provider Active Start: August 06, 2024 End: August 06, 2024 Dr. Raheem Nguyen MD Attending Provider Active Start: August 06, 2024 End: August 06, 2024 Dr. Raheem Nguyen MD Referring Provider Active Start: August 06, 2024 End: August 06, 2024 Team Status: Inactive Member Role Status Dates Dr. Raheem Nguyen MD Primary Care Provider Active Start: August 15, 2024 End: August 15, 2024 Dr. Raheem Nguyen MD Attending Provider Active Start: August 15, 2024 End: August 15, 2024 Dr. Raheem Nguyen MD Referring Provider Active Start: August 15, 2024 End: August 15, 2024 Team Status: Inactive Member Role Status Dates Dr. Raheem Nguyen MD Primary Care Provider Active Start: August 19, 2024 End: August 19, 2024 Dr. Raheem Nguyen MD Referring Provider Active Start: August 19, 2024 End: August 19, 2024 Brooklynn Honeycutt ENTRY LEVEL ACCOUNT EXECUTIVE, ENTRY LEVEL ACCOUNT EXECUTIVE-C Attending Provider Active Start: August 19, 2024 End: August 19, 2024 Team Status: Inactive Member Role Status Dates Dr. Raheem Nguyen MD Primary Care Provider Active Start: August 25, 2024 End: August 25, 2024 Brooklynn Honeycutt ENTRY LEVEL ACCOUNT EXECUTIVE, ENTRY LEVEL ACCOUNT EXECUTIVE-C Attending Provider Active Start: August 25, 2024 End: August 25, 2024 Brooklynn Honeycutt ENTRY LEVEL ACCOUNT EXECUTIVE, ENTRY LEVEL ACCOUNT EXECUTIVE-C Referring Provider Active Start: August 25, 2024 End: August 25, 2024 Team Status: Active Member Role Status Dates Dr. Raheem Nguyen MD Primary Care Provider Active Start: September 01, 2024 Brooklynn Honeycutt ENTRY LEVEL ACCOUNT EXECUTIVE, ENTRY LEVEL ACCOUNT EXECUTIVE-C Referring Provider Active Start: September 01, 2024 Brooklynn Honeycutt ENTRY LEVEL ACCOUNT EXECUTIVE, ENTRY LEVEL ACCOUNT EXECUTIVE-C Other Provider Active Start: September 01, 2024 Dr. Sage Griffiths DO Attending Provider Active S tart: September 01, 2024 Team Status: Inactive Member Role Status Dates Dr. Raheem Nguyen MD Primary Care Provider Active Start: September 06, 2024 End: September 06, 2024 Melody Puente PA, PA Attending Provider Active Start: September 06, 2024 End: September 06, 2024 Melody Puente PA, PA Referring Provider Active Start: September 06, 2024 End: September 06, 2024 Team Status: Inactive Member Role Status Dates Dr. Raheem Nguyen MD Primary Care Provider Active Start: October 22, 2024 End: October 22, 2024 Brooklynn Honeycutt ENTRY LEVEL ACCOUNT EXECUTIVE, ENTRY LEVEL ACCOUNT EXECUTIVE-C Attending Provider Active Start: October 22, 2024 End: October 22, 2024 Brooklynn Honeycutt ENTRY LEVEL ACCOUNT EXECUTIVE, ENTRY LEVEL ACCOUNT EXECUTIVE-C Referring Provider Active Start: October 22, 2024 End: October 22, 2024 Team Status: Active Member Role Status Dates Dr. Raheem Nguyen MD Primary Care Provider Active Dr. Silvino Mar MD Attending Provider Active BENSON Lee Referring Provider Active Team Status: Inactive Member Role Status Dates Dr. Raheem Nguyen MD Primary Care Provider Active BENSON Lee Attending Provider, Referring Provid er Active Team Status: Inactive Member Role Status Dates Dr. Raheem Nguyen MD Primary Care Pr ovider, Attending Provider, Referring Provider Active Team Status: Inactive Member Role Status Dates Dr. Raehem Nguyen MD Primary Care Provider, Referr ing Provider Active BENSON Almeida Attending Provider Active Team Status: Active Member Role Status Dates Dr. Raheem Nguyen MD Primary Care Provider Active Dr. Silvino Mar MD Attending Provider Active BENSON Almeida Referring Provider Active Team Status: Active Member Role Status Dates Dr. Raheem Nguyen MD Primary Care Provider Active Dr. Silvino Mar MD Attending Provider, Referring Provider, Other Provider Active Team Status: Inactive Member Role Status Dates Dr. Raheem Nguyen MD Primary Care Provider, Referr ing Provider Active Dr. Silvino Mar MD Attending Provider Active Team Status: Active Member Role Status Dates Dr. Raheem Nguyen MD Primary Care Provider Active Dr. Silvino Mar MD Attending Provider Active Team Status: Inactive Member Role Status Dates Dr. Raheem Nguyen MD Primary Care Provider Active BENSON Almeida Attending Provider Active Team Status: Inactive Member Role Status Dates Dr. Raheem Nguyen MD Primary Care Provider Active Dr. Silvino Mar MD Attending Provider, Referring Pro vider Active Team Status: Active Member Role Status Dates Dr. Raheem Nguyen MD Primary Care Provider Active Dr. Bruce Felipe MD Attending Provider Active Team Status: Active Member Role Status Dates Dr. Raheem Nguyen MD Primary Care Pr ovider, Attending Provider, Referring Provider Active Team Status: Inactive Member Role Status Dates Dr. Raheem Nguyen MD Primary Care Provider, Referr ing Provider Active BENSON Veronica Attending Provider Active Team Status: Active Member Role Status Dates Dr. Raheem Nguyen MD Primary Care Provider, Referr ing Provider Active Dr. Bruce Felipe MD Attending Provider Active Team Status: Active Member Role Status Dates Dr. Raheem Nguyen MD Primary Care Provider Active Dr. Silvino Mar MD Attending Provider Active BENSON Veronica Referring Provider Active Team Status: Inactive Member Role Status Dates Dr. Raheem Nguyen MD Primary Care Provider Active BENSON Veronica Attending Provider Active Team Status: Active Member Role Status Dates Dr. Raheem Nguyen MD Primary Care Provider Active Start: November 12, 2024 Dr. Raheem Nguyen MD Attending Provider Active Start: November 12, 2024 Dr. Raheem Nguyen MD Referring Provider Active Start: November 12, 2024 Team Status: Inactive Member Role Status Dates Dr. Raheem Nguyen MD Primary Care Provider Active Start: November 14, 2024 End: November 14, 2024 Brooklynn Honeycutt ENTRY LEVEL ACCOUNT EXECUTIVE, ENTRY LEVEL ACCOUNT EXECUTIVE-C Attending Provider Active Start: November 14, 2024 End: November 14, 2024 Brooklynn Honeycutt ENTRY LEVEL ACCOUNT EXECUTIVE, ENTRY LEVEL ACCOUNT EXECUTIVE-C Referring Provider Active Start: November 14, 2024 End: November 14, 2024 Team Status: Inactive Member Role Status Dates Dr. Raheem Nguyen MD Primary Care Provider Active Start: November 28, 2024 End: November 28, 2024 BENSON Lee Attending Provider Active Star t: November 28, 2024 End: November 28, 2024 BENSON Lee Referring Provider Active Star t: November 28, 2024 End: November 28, 2024 Team Status: Active Member Role Status Dates Dr. Raheem Nguyen MD Primary Care Provider Active Start: November 28, 2024 Dr. Silvino Mar MD Attending Provider Active S tart: November 28, 2024 Goals (unrecognized section and content) Goals may be documented in a n alternate sectionGoals may be documented in an alternate sectionGoals may be documented in an alternate sectionGoals may be documented in an alternate sectionGoals may be documented in an alternate sectionGoals may be documented in an alternate sectionGoals may be documented in an alternate sectionGoals may be documented in an alternate sectionGoals may be documented in an alternate sectionGoals may be documented in an alternate sectionGoals may be documented in an alternate section FOR RECORDS PERTAINING TO PATIENTS WHO ARE [...] BE BASED ON THE PRIMARY CLINICAL RECORDS. [facility] [employer] [facility]. provides no warranty or guarantee of the accuracy or completeness of information in this document.
== END | disposition home or self-care (01) ==
LOC: PSN 06:18
PROVIDERS: PCP Family Medicine; Referring Provider Nurse Practitioner Family; Visit Provider Nurse Practitioner Family
DX: R94.2 Abnormal results of pulmonary function studies (principal); R06.2 Wheezing
CPT/HCPCS: 94060; 94726; 94729

== ENCOUNTER → 2025-05-01 | Outpatient (CLI) | payer MEDICAID, SELFPAY ==
--- NOTE | 2025-05-01 12:55 | VDLE_ITS ---
Reason For Study Reason For Study: LLE Swelling Procedure LEFT This is a venous duplex using B-mode, color flow and GSV is normal. spectral Doppler. Distal EIV is PARTIALLY COMPRESSIBLE with mixed Exam performed in department. intraluminal echoes. flow is noted in pulsed wave and The exam was diagnostic. color doppler. Finding is consistent with Chronic DVT CFV is PARTIALLY COMPRESSIBLE with mixed intraluminal echoes. Flow appears phasic, spontaneous and demonstrated normal augmentation. Finding is consistent with Chronic DVT FV is PARTIALLY COMPRESSIBLE with mixed intraluminal echoes. Finding is consistent with Chronic DVT POP V is PARTIALLY COMPRESSIBLE with mixed intraluminal echoes. Finding is consistent with Chronic DVT. Flow appears phasic, spontaneous and demonstrated normal augmentation. T/P Trunk is PARTIALLY NONCOMPRESSIBLE. PTV appears compressible Yvonne Vein appears compressible. VL/Venous Duplex US, Unilateral Interpretation Summary Chronic deep vein thrombosis noted in the left external iliac vein, common femo ral vein, femoral vein, popliteal vein, tibioperoneal trunk vein. Ordering Physician: Silvino Mar Referring Physician: Raheem Nguyen Performed By: Ej Kim RVT
== END | disposition home or self-care (01) ==
LOC: CVS 12:52
PROVIDERS: PCP Family Medicine; Referring Provider Surgery Trauma Surgery; Visit Provider Surgery Trauma Surgery
DX: I87.1 Compression of vein (principal); I82.422 Acute embolism and thrombosis of left iliac vein
CPT/HCPCS: 93971